=== PATIENT | female | born 1950 | race Caucasian/White ===

== ENCOUNTER 2021-08-06 07:37 | Day surgery (SDC) | payer MEDICARE ==
[2021-08-05 09:52] VITALS: BMI 29.7
[~2021-08-06 07:37] MED LIST: LACTATED RINGERS 1,000 ML IV SCH; LIDOCAINE 1% (10MG/ML) FOR IV START INTRADERMA PRN
[2021-08-06 08:07] VITALS: TEMP 97
[2021-08-06 08:09] LABS: Glucose,Whole Blood 149 mg/dL (75-99)
[2021-08-06] MEDS ORDERED: PROPOFOL 10 MG/ML 20 ML VIAL IV ONE (09:27)
--- NOTE | 2021-08-06 09:38 | P.GSHP ---
History of Present Illness H&P Date: 08/06/21 Chief Complaint: Anemia Is a 70-year-old female undergoing workup for anemia. Patient presents today for EGD and colonoscopy. She is unsure of her last colonoscopy.. 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 Past Anesthesia/Blood Transfusion Reactions: Previous Problems w/ Anesthesia Additional Past Anesthesia/Blood Transfusion Reaction / Comment(s): "has trouble waking up with anesthesia" Smoking Status: Never smoker - Past Family History Mother Family Medical History: Cancer Brother(s) Family Medical History: Cancer Sister(s) Family Medical History: Cancer Medications and Allergies Home Medications Medication Instructions Recorded Confirmed Type Atorvastatin [Lipitor] 40 mg PO DAILY 08/05/21 08/05/21 History Ergocalciferol [Vitamin D2 (1250 1,250 mcg PO WEEKLY 08/05/21 08/05/21 History Mcg = 91303 Iu)] Fluticasone Nasal [place] [Flonase 2 spray EA NOSTRIL DAILY PRN 08/05/21 08/05/21 History Nasal [place]] Furosemide [Lasix] 20 mg PO DAILY 08/05/21 08/05/21 History Insulin Degludec [Tresiba 10 units SQ HS 08/05/21 08/05/21 History Flextouch U-100 Pen] Loratadine [Claritin] 10 mg PO DAILY 08/05/21 08/05/21 History Montelukast Sodium [Singulair] 10 mg PO HS 08/05/21 08/05/21 History Pregabalin [Lyrica] 75 mg PO HS 08/05/21 08/05/21 History Pyridoxine HCl (Vitamin B6) 100 mg PO DAILY 08/05/21 08/05/21 History [Vitamin B-6] Ramipril [Altace] 5 mg PO QAM 08/05/21 08/05/21 History glipiZIDE XL [Glucotrol Xl] 10 mg PO BID 08/05/21 08/05/21 History metFORMIN HCL [Glucophage] 1,000 mg PO BID 08/05/21 08/05/21 History Allergies Allergy/AdvReac Type Severity Reaction Status Date / Time Sulfa (Sulfonamide Allergy Rash/Hives Verified 08/06/21 08:09 Antibiotics) Surgical - Exam Vital Signs Temp Pulse Resp BP Pulse Ox 97.0 F L 82 18 165/77 96 08/06/21 08:06 08/06/21 08:06 08/06/21 08:06 08/06/21 08:06 08/06/21 08:06 - General well developed, well nourished, no distress - Eyes PERRL - ENT normal pinna - Neck no masses - Respiratory normal expansion - Cardiovascular Rhythm: regular - Abdomen Abdomen: soft, non tender Results - Labs Abnormal Lab Results - Last 24 Hours (Table) 08/06/21 Range/Units 08:07 POC Glucose (mg/dL) 149 H (75-99) mg/dL Assessment and Plan Assessment: Anemia. We'll perform EGD colonoscopy
--- NOTE | 2021-08-06 10:05 | P.OP ---
Date of Procedure: 08/06/21 Preoperative Diagnosis: Anemia GI bleed. Postoperative Diagnosis: Mild antral gastritis Mild diverticulosis Procedure(s) Performed: EGD Colonoscopy Anesthesia: MAC Surgeon: Nathan Jeter Pathology: other (Antrum) Condition: stable Disposition: PACU Description of Procedure: The patient's placed on the endoscopy table in the lateral position. She received IV sedation. The gastroscope was oropharynx passed in the esophagus and into the stomach. The scope was then placed through the pylorus. The first and second portion of the duodenum appeared normal. The scope was then brought back the antrum this is mildly inflamed. A biopsies performed. The scope was then retroflexed in the remainder of the stomach appeared normal. The GE junction was at 40 cm. The distal esophagus. Normal. The proximal esophagus appeared normal. The scope was withdrawn for patient. There was no evidence of any upper GI bleed. The flexible colonoscope was then placed patient anus and passed throughout the entire colon. The ileocecal valve was visualized. Cecum, ascending and transverse colon appeared normal. The descending and sigmoid colon had a few scattered diverticuli. The scope was then brought back the rectum and this appeared normal. Scope withdrawn for patient. There was no evidence of any lower GI bleed.
[2021-08-06 10:25] VITALS: BP 158/86; PULSE 73; RESP 18
== END 2021-08-06 10:56 | disposition home or self-care (01) ==
LOC: ORWHC2ENDO 07:37
PROVIDERS: ATTEND Surgery
DX: K57.90 Diverticulosis of intestine, part unspecified, without perforation or abscess without bleeding (principal); K29.70 Gastritis, unspecified, without bleeding; D64.9 Anemia, unspecified; E11.9 Type 2 diabetes mellitus without complications; E78.5 Hyperlipidemia, unspecified; I10 Essential (primary) hypertension; Z79.4 Long term (current) use of insulin; Z86.73 Personal history of transient ischemic attack (TIA), and cerebral infarction without residual deficits; Z88.2 Allergy status to sulfonamides
CPT/HCPCS: 45378; 43239; 88305; J2704

== ENCOUNTER → 2022-01-04 | Outpatient (CLI) | payer MEDICARE ==
--- NOTE | 2022-01-04 10:47 | CT ---
EXAMINATION TYPE: CT iac wo con DATE OF EXAM: 01/04/2022 COMPARISON: Unavailable HISTORY: HEARING LOSS CT DLP: 195mGycm Automated exposure control for dose reduction was used. TECHNIQUE: Axial and coronal CT scan of the temporal bones without IV contrast administration. FINDINGS: Opacified mastoid air cells more on the left side with sclerotic changes on the right side suggestive of mastoiditis. Symmetrical unremarkable middle ear structures. Clear aditus ad antrum bilaterally. Symmetrical unremarkable inner ear structures and internal auditory canals. Unremarkable external auditory canals. Intact scutum bilaterally with preserved Prussak spaces. Intac t tegmen tympani bilaterally. Mild mucosal thickening of the right maxillary sinus, sphenoid sinus an d the ethmoid air cells. Scattered arterial atherosclerotic calcifications. IMPRESSION: Findings are suggestive of bilateral mastoiditis as described above, please correlate clinically. Oth erwise unremarkable temporal bones.
== END | disposition home or self-care (01) ==
LOC: RADCTMAIN 10:04
PROVIDERS: ATTEND Otolaryngology
DX: H91.90 Unspecified hearing loss, unspecified ear (principal); H71.90 Unspecified cholesteatoma, unspecified ear; H73.892 Other specified disorders of tympanic membrane, left ear
CPT/HCPCS: 70480

== ENCOUNTER 2022-03-04 07:27 | Day surgery (SDC) | payer MEDICARE ==
[~2022-03-04 07:27] MED LIST changes: +FAMOTIDINE 20 MG/2 ML VIAL IV PRN; -LACTATED RINGERS 1,000 ML IV SCH; -LIDOCAINE 1% (10MG/ML) FOR IV START INTRADERMA PRN; +Pre Op ABX Message 1 EACH MISC MISCELLANE ONE
[2022-03-04] MEDS: LACTATED RINGERS 1,000 ML IV SCH (08:00)
[2022-03-04] MEDS: OXYMETAZOLINE 0.05% NASL SPRAY 1 SPRAY BOTTLE EA NOSTRIL PRN ×5 (08:13→08:33)
[2022-03-04] MEDS ORDERED: LIDOCAINE 1% (10MG/ML) FOR IV START INTRADERMA ONE (08:18)
[2022-03-04 08:21] LABS: Glucose,Whole Blood 181 mg/dL (70-110)
[2022-03-04] MEDS ORDERED: DEXAMETHASONE SOD PHOSPHATE 4 MG/ML 1 ML VIAL IVP ONE (08:28)
[2022-03-04] MEDS ORDERED: ONDANSETRON 4 MG/2 ML VIAL IVP ONE (08:28)
[2022-03-04] MEDS ORDERED: LIDOCAINE 2% INJ 20 MG/ML (2 ML VIAL) ONE (09:41)
[2022-03-04] MEDS ORDERED: PROPOFOL 10 MG/ML 20 ML VIAL IV ONE (09:41)
[2022-03-04] MEDS ORDERED: MIDAZOLAM 2 MG/2 ML VIAL ONE (09:41)
[2022-03-04] MEDS ORDERED: fentaNYL (PF) 50 MCG/ML 2 ML AMP ONE (09:41)
[2022-03-04] MEDS ORDERED: CIPROFLOX/FLUOCIN OTIC 0.25ML DROPERETTE OTIC ONE (10:03)
--- NOTE | 2022-03-04 10:31 | P.OP ---
Date of Procedure: 03/04/22 Preoperative Diagnosis: Chronic serous otitis media with effusion bilateral Bilateral my [place] incudostapedial pexy Chronic mastoiditis Eustachian tube obstruction, bilateral, cartilaginous Hearing loss Postoperative Diagnosis: Same Procedure(s) Performed: Bilateral direct microscopic tympanostomy and tube placement with lavage Bilateral endoscopic balloon eustachian tuboplasty Anesthesia: MAURICIO Surgeon: Mukul Faustin Estimated Blood Loss (ml): 0 Pathology: none sent Condition: stable Disposition: PACU Indications for Procedure: This patient has failed medical therapy and continues to have persistent eustachian tube dysfunction. She was found have severe retraction pockets on the left side which is much worse she has bilateral [place] incostapedialpexy medical therapy has been prescribed but has failed. Tympanostomy and tube placement with the middle-ear lavage along with a balloon the station tuboplasty was recommended. All risks, benefits and alternative therapies were discussed. Consent was obtained and all questions were answered. Operative Findings: Patient had bilateral retraction pockets with Myringoincudostapedial pexy. Middle ear effusion was noted. Eustachian tube orifice was swollen bilaterally Description of Procedure: Patient was taken to the operative room and placed in the supine position. A general inhalation anesthetic was administered to the patient by mask and subsequently intubated with a cuffed endotracheal tube by the department of anesthesia with a functioning IV line in place. The patient was monitored throughout the entire case by the department of anesthesia. Both ears were visualized with a 250 mm Leica microscope and cerumen and epithelial debris was removed from the external auditory canals. Both tympanic membranes were retracted with adhesions from the eardrum to the stapes and incus. Tympanostomy incisions were made. Fluid was suctioned. Middle ear was lavaged with saline. Bilateral Tympanostomy tubes were placed utilizing ultraseal tubes. Ofloxacin drops were placed. With use of an acclarent eustachian tube balloon system the nose was entered with a 0 scope. Both eustachian tubes were identified and found to be swollen and balloon insufflated in the standard fashion. Bilateral eustachian tubes were insufflated and all instruments were removed after the balloon was performed bilaterally. The patient tolerated this well and follow-up will be in the office in 1 week.
[2022-03-04 10:47] LABS: Glucose,Whole Blood 234 mg/dL (70-110)
[2022-03-04] MEDS ORDERED: ALBUTEROL NEBULIZED 2.5 MG/3 ML INHALATION ONE ×2 (11:19→12:03)
[2022-03-04] MEDS ORDERED: INSULIN ASPART (NovoLOG) 100 UNIT/ML VIAL SQ ONE ×2 (11:19→23:12)
[2022-03-04 13:47] LABS: Glucose,Whole Blood 210 mg/dL (70-110)
[2022-03-04] MEDS ORDERED: FLUTICASONE 50MCG/SPRAY NASAL 16GM EA NOSTRIL PRN (14:07)
[2022-03-04] MEDS ORDERED: ACETAMINOPHEN TAB 325 MG TAB PO PRN (14:08)
[2022-03-04] MEDS ORDERED: NALOXONE 0.4 MG/ML 1 ML VIAL IV PRN (14:08)
[2022-03-04] MEDS ORDERED: MELATONIN 3 MG TABLET PO PRN (14:08)
[2022-03-04] MEDS ORDERED: ONDANSETRON 4 MG/2 ML VIAL IVP PRN (14:15)
--- NOTE | 2022-03-04 15:11 | XR ---
EXAMINATION TYPE: XR chest 2V DATE OF EXAM: 03/04/2022 COMPARISON: None HISTORY: 71-year-old female postoperative hypoxia with aspiration TECHNIQUE: Frontal and lateral views FINDINGS: Heart normal size. Mild hyperinflation. Interstitial infiltrate throughout the right lung in mild inc reased interstitial change periphery of the left lung. LAP-BAND device noted. IMPRESSION: Mild to moderate interstitial infiltrate throughout the right lung and mild in the left lung. Early d eveloping aspiration pneumonitis not excluded.
[2022-03-04 15:33] LABS: Basophils % (A) 0 %; Eosinophils % (A) 0 %; HCT 35.6 % (34.0-46.0); HGB 11.5 gm/dL (11.4-16.0); Lymphocytes # (A) 0.5 k/uL (1.0-4.8); Lymphocytes % (A) 5 %; MCH 29.7 pg (25.0-35.0); MCHC 32.4 g/dL (31.0-37.0); MCV 91.6 fL (80.0-100.0); Mean Platelet Volume 8.7; Monocytes # (A) 0.2 k/uL (0-1.0); Monocytes % (A) 2 %; Neutrophils # (A) 10.2 k/uL (1.3-7.7); Neutrophils % (A) 93 %; Platelet Count 270 k/uL (150-450); RBC 3.89 m/uL (3.80-5.40)
[2022-03-04 15:36] LABS: ALT 20 U/L (4-34); AST 25 U/L (14-36); African American GFR (CKD) 41 (>60 ml/min/1.73 sqM); Albumin 4.2 g/dL (3.5-5.0); Alkaline Phosphatase 62 U/L (38-126); Anion Gap 7 mmol/L; Blood Urea Nitrogen 32 mg/dL (7-17); Calcium 9.2 mg/dL (8.4-10.2); Carbon Dioxide 26 mmol/L (22-30); Chloride 105 mmol/L (98-107); Glucose 204 mg/dL (74-99); Non-African American GFR(CKD) 35 (>60 ml/min/1.73 sqM); Potassium 4.6 mmol/L (3.5-5.1); Sodium 138 mmol/L (137-145); Total Bilirubin 0.5 mg/dL (0.2-1.3); Total Protein 7.2 g/dL (6.3-8.2)
[2022-03-04 15:47] LABS: C Reactive Protein <0.5 mg/dL (<1.0)
[2022-03-04] MEDS: IPRATROPIUM-ALBUTEROL 3 ML NEB INHALATION SCH ×2 (16:00→20:02)
--- NOTE | 2022-03-04 16:09 | P.CNPUL ---
History of Present Illness Consult date: 03/04/22 Requesting physician: Mukul Faustin Reason for consult: pneumonia Chief complaint: Intraoperative vomiting, aspiration pneumonia History of present illness: This is a 71-year-old female with history of persistent eustachian tube dysfunction. Patient had chronic serous otitis media with effusion bilaterally. Chronic mastoiditis, eustachian tube obstruction and hearing loss. Patient u nderwent bilateral direct microscopic tympanostomy and tube placement with lavage. Bilateral endoscopic balloon eustachian tuboplasty today. Apparently the patient had her surgery done under general anesthesia, and during the surgery the patient vomited, and there was clearly evidence of aspiration. Postoperatively, the patient had low oxygen saturation, abnormal chest x-ray consistent with right upper lobe and right lower lobe infiltrate, patient was admitted instead of being discharged home, and I was asked to see her on consultation. Patient is now on 2 L nasal cannula, O2 saturations 93%. Chest x-ray is consistent with aspiration pneumonia. Symptoms bello the patient has intermittent cough, no fever, no chills, no hemoptysis. Review of Systems Constitutional: Negative HEENT: As noted in HPI Pulmonary: As noted in HPI GI: Negative Genitourinary: Negative Muscular skeletal: Negative Psychiatric: Negative Hematologic: Negative Endocrine: Negative Neurologic: Negative Skin: Negative Past Medical History Past Medical History: Asthma, CVA/TIA, Diabetes Mellitus, Hyperlipidemia, Hypertension, Osteoarthritis (OA) Additional Past Medical History / Comment(s): "I had a couple false mini strokes a few years ago" LOW VITAMIN B6 - LOW -PAST HISTORY . 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 Past Anesthesia/Blood Transfusion Reactions: Previous Problems w/ Anesthesia, Motion Sickness Additional Past Anesthesia/Blood Transfusion Reaction / Comment(s): "has trouble waking up with anesthesia" TAKES LONGER TO WAKE UP Smoking Status: Former smoker - Past Family History Mother Family Medical History: Cancer Brother(s) Family Medical History: Cancer Sister(s) Family Medical History: Cancer Son(s) Family Medical History: Cancer Additional Family Medical History / Comment(s): PANCREATIC CANCER Medications and Allergies Home Medications Medication Instructions Recorded Confirmed Type Atorvastatin [Lipitor] 40 mg PO DAILY 08/05/21 03/04/22 History Ergocalciferol [Vitamin D2 (1250 1,250 mcg PO WE 08/05/21 03/04/22 History Mcg = 86156 Iu)] Fluticasone Nasal [place] [Flonase 2 spray EA NOSTRIL DAILY PRN 08/05/21 03/04/22 History Nasal [place]] Furosemide [Lasix] 20 mg PO DAILY 08/05/21 03/04/22 History Insulin Degludec [Tresiba 10 units SQ HS 08/05/21 03/04/22 History Flextouch U-100 Pen] Loratadine [Claritin] 10 mg PO DAILY 08/05/21 03/04/22 History Montelukast Sodium [Singulair] 10 mg PO HS 08/05/21 03/04/22 History Pregabalin [Lyrica] 75 mg PO HS 08/05/21 03/04/22 History Pyridoxine HCl (Vitamin B6) 100 mg PO DAILY 08/05/21 03/04/22 History [Vitamin B-6] glipiZIDE XL [Glucotrol Xl] 10 mg PO BID 08/05/21 03/04/22 History metFORMIN HCL [Glucophage] 1,000 mg PO BID 08/05/21 03/04/22 History ramipriL [Altace] 5 mg PO QAM 08/05/21 03/04/22 History Magnesium Oxide [Mag-Ox] 400 mg PO DAILY 03/02/22 03/04/22 History Allergies Allergy/AdvReac Type Severity Reaction Status Date / Time Sulfa (Sulfonamide Allergy Rash/Hives Verified 03/04/22 08:00 Antibiotics) Physical Exam Vitals: Vital Signs Temp Pulse Resp BP Pulse Ox 03/04/22 15:04 89 16 110/77 93 L 03/04/22 14:57 96 16 160/72 89 L 03/04/22 13:41 76 16 127/75 95 03/04/22 13:40 97.5 F L 03/04/22 13:35 82 16 93 L 03/04/22 13:02 16 113/70 93 L 03/04/22 12:44 78 16 138/60 90 L 03/04/22 12:34 84 16 129/71 90 L 03/04/22 12:15 77 16 129/71 94 L 03/04/22 12:13 70 16 121/62 95 03/04/22 12:05 71 16 122/62 97 03/04/22 11:50 97.1 F L 75 16 134/64 95 03/04/22 11:35 68 16 133/62 94 L 03/04/22 11:20 68 16 131/68 94 L 03/04/22 11:05 97.0 F L 67 16 129/70 94 L 03/04/22 10:50 96.7 F L 69 15 138/86 94 L 03/04/22 10:35 95.9 F L 72 14 144/96 94 L 03/04/22 08:04 97.6 F 72 18 127/69 97 Intake and Output 03/04/22 03/04/22 03/04/22 06:59 14:59 22:59 Intake Total 600 Output Total 5 Balance 595 Intake: IV 600 Output: Estimated Blood Loss 5 Other: Weight 83.5 kg Physical Exam: Revealed 71-year-old female in no distress on 2 L nasal cannula Head: Atraumatic, normocephalic. HEENT:[Neck is supple.] [No neck masses.] [No thyromegaly.] [No JVD.] Chest: Symmetrical chest expansion, crackles at the bases bilaterally. Minimal rhonchi on forced expiratory maneuver. Cardiac Exam: [Normal S1 and S2, no S3 gallop, no murmur.] Abdomen: [Soft, nontender, no megaly, no rebound, no guarding, normal bowel sounds.] Extremities: [No clubbing, no edema, no cyanosis.] Neurological Exam: [No focal neurologic deficit.] Alert and oriented 3 Psychiatric: Normal mood, affect and normal mental status examination. Skin: No rashes Results - Laboratory Findings CBC and BMP: 03/04/22 15:09 03/04/22 15:09 Abnormal lab findings: Abnormal Labs 03/04/22 03/04/22 03/04/22 08:18 10:45 13:46 WBC Neutrophils # Lymphocytes # BUN Creatinine Glucose POC Glucose (mg/dL) 181 H 234 H 210 H 03/04/22 03/04/22 15:09 15:09 WBC 11.0 H Neutrophils # 10.2 H Lymphocytes # 0.5 L BUN 32 H Creatinine 1.49 H Glucose 204 H POC Glucose (mg/dL) - Diagnostic Findings Chest x-ray: image reviewed (Suspect infiltrate in the right upper lobe and right middle lobe and to some extent in the left lung) Assessment and Plan Assessment: Impression: Acute hypoxic respiratory failure secondary to aspiration pneumonia Acute aspiration pneumonia Status post Bilateral direct microscopic tympanostomy and tube placement with lavage Status post Bilateral endoscopic balloon eustachian tuboplasty Type 2 diabetes. Benign essential hypertension. Dyslipidemia. History of mild intermittent asthma. Remote 2-pack-year smoking history. Recommendation: Start patient empirically on antibiotics in the form of Zosyn Start patient empirically on steroids Resume home meds Consider repeat chest x-ray in the next 24 hours and possibly discharge home in 24 hours on steroids and oral antibiotics/Augmentin. We'll continue to follow [employer] in the form of DuoNeb 4 times a day and when necessary Time with Patient: Greater than 30
--- NOTE | 2022-03-04 16:21 | P.HPIM ---
History of Present Illness H&P Date: 03/04/22 Chief Complaint: Postoperative respiratory failure History of present illness: This is a 71-year-old female with history of persistent eustachian tube dysfunction. Patient had chronic serous otitis media with effusion bilaterally. Chronic mastoiditis, eustachian tube obstruction and hearing loss. Patient underwent bilateral direct microscopic tympanostomy and tube placement with lavage. Bilateral endoscopic balloon eustachian tuboplasty today. Apparently the patient had her surgery done under general anesthesia, and during the surgery the patient vomited, and there was clearly evidence of aspiration. Postoperatively, the patient had low oxygen saturation, abnormal chest x-ray consistent with right upper lobe and right lower lobe infiltrate, patient was admitted instead of being discharged home, and I was asked to see her on consultation. Patient is now on 2 L nasal cannula, O2 saturations 93%. Chest x-ray is consistent with aspiration pneumonia. Symptoms bello the patient has intermittent cough, no fever, no chills, no hemoptysis. Patient denies any chest pain. She is currently on 2 L nasal cannula. Review of systems:All 14 review of systems evaluated and all negative except for above. Physical examination: General: non toxic, no distress, appears at stated age Derm: warm, dry Head: atraumatic, normocephalic, symmetric Eyes: EOMI, no lid lag, anicteric sclera Mouth: no lip lesion, mucus membranes moist Cardiovascular: S1S2 reg, no murmur, positive posterior tibial pulse bilateral, Lungs: Bilateral crackles. Abdominal: soft, nontender to palpation, no guarding, no appreciable organomegaly Ext: no gross muscle atrophy, no edema, no contractures Neuro: CN II-XI grossly intact, no focal neuro deficits Psych: Alert, oriented, appropriate affect Assessment and plan: #Postoperative acute respiratory failure secondary to aspiration pneumonia -Patient started on Zosyn -Breathing treatments -Incentive spirometer -Oral steroids per pulmonary -Repeat chest x-ray in the morning #History of mild intermittent asthma -Bronchodilator treatments -Resume Singulair #Type 2 diabetes mellitus -Diabetic diet -A1c -Sliding scale insulin #Past medical history of TIAs -Patient will not and aspirin at home -Start baby aspirin resume statins and check lipid panel #Hypertension -Resume lisinopril #Status post Bilateral direct microscopic tympanostomy and tube placement with lavage Status post Bilateral endoscopic balloon eustachian tuboplasty -Resume eardrops per ENT -She is on IV antibiotics -By mouth antibiotic on discharge #DVT prophylaxis with Lovenox Past Medical History Past Medical History: Asthma, CVA/TIA, Diabetes Mellitus, Hyperlipidemia, Hypertension, Osteoarthritis (OA) Additional Past Medical History / Comment(s): "I had a couple false mini strokes a few years ago" LOW VITAMIN B6 - LOW -PAST HISTORY . 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 Past Anesthesia/Blood Transfusion Reactions: Previous Problems w/ Anesthesia, Motion Sickness Additional Past Anesthesia/Blood Transfusion Reaction / Comment(s): "has trouble waking up with anesthesia" TAKES LONGER TO WAKE UP Smoking Status: Former smoker - Past Family History Mother Family Medical History: Cancer Brother(s) Family Medical History: Cancer Sister(s) Family Medical History: Cancer Son(s) Family Medical History: Cancer Additional Family Medical History / Comment(s): PANCREATIC CANCER Medications and Allergies Home Medications Medication Instructions Recorded Confirmed Type Atorvastatin [Lipitor] 40 mg PO DAILY 08/05/21 03/04/22 History Ergocalciferol [Vitamin D2 (1250 1,250 mcg PO WE 08/05/21 03/04/22 History Mcg = 32340 Iu)] Fluticasone Nasal [place] [Flonase 2 spray EA NOSTRIL DAILY PRN 08/05/21 03/04/22 History Nasal [place]] Furosemide [Lasix] 20 mg PO DAILY 08/05/21 03/04/22 History Insulin Degludec [Tresiba 10 units SQ HS 08/05/21 03/04/22 History Flextouch U-100 Pen] Loratadine [Claritin] 10 mg PO DAILY 08/05/21 03/04/22 History Montelukast Sodium [Singulair] 10 mg PO HS 08/05/21 03/04/22 History Pregabalin [Lyrica] 75 mg PO HS 08/05/21 03/04/22 History Pyridoxine HCl (Vitamin B6) 100 mg PO DAILY 08/05/21 03/04/22 History [Vitamin B-6] glipiZIDE XL [Glucotrol Xl] 10 mg PO BID 08/05/21 03/04/22 History metFORMIN HCL [Glucophage] 1,000 mg PO BID 08/05/21 03/04/22 History ramipriL [Altace] 5 mg PO QAM 08/05/21 03/04/22 History Magnesium Oxide [Mag-Ox] 400 mg PO DAILY 03/02/22 03/04/22 History Allergies Allergy/AdvReac Type Severity Reaction Status Date / Time Sulfa (Sulfonamide Allergy Rash/Hives Verified 03/04/22 08:00 Antibiotics) Physical Exam Vitals: Vital Signs Temp Pulse Pulse Resp BP Pulse Ox 03/04/22 16:14 84 03/04/22 16:00 84 03/04/22 15:58 98.9 F 88 16 152/79 93 L 03/04/22 15:04 89 16 110/77 93 L 03/04/22 14:57 96 16 160/72 89 L 03/04/22 13:41 76 16 127/75 95 03/04/22 13:40 97.5 F L 03/04/22 13:35 82 16 93 L 03/04/22 13:02 16 113/70 93 L 03/04/22 12:44 78 16 138/60 90 L 03/04/22 12:34 84 16 129/71 90 L 03/04/22 12:15 77 16 129/71 94 L 03/04/22 12:13 70 16 121/62 95 03/04/22 12:05 71 16 122/62 97 03/04/22 11:50 97.1 F L 75 16 134/64 95 03/04/22 11:35 68 16 133/62 94 L 03/04/22 11:20 68 16 131/68 94 L 03/04/22 11:05 97.0 F L 67 16 129/70 94 L 03/04/22 10:50 96.7 F L 69 15 138/86 94 L 03/04/22 10:35 95.9 F L 72 14 144/96 94 L 03/04/22 08:04 97.6 F 72 18 127/69 97 Intake and Output 03/04/22 03/04/22 03/04/22 06:59 14:59 22:59 Intake Total 600 Output Total 5 Balance 595 Intake: IV 600 Output: Estimated Blood Loss 5 Other: Weight 83.5 kg Results CBC & Chem 7: 03/04/22 15:09 03/04/22 15:09 Labs: Abnormal Lab Results - Last 24 Hours (Table) 03/04/22 03/04/22 03/04/22 Range/Units 08:18 10:45 13:46 WBC (3.8-10.6) k/uL Neutrophils # (1.3-7.7) k/uL Lymphocytes # (1.0-4.8) k/uL BUN (7-17) mg/dL Creatinine (0.52-1.04) mg/dL Glucose (74-99) mg/dL POC Glucose (mg/dL) 181 H 234 H 210 H (70-110) mg/dL 03/04/22 03/04/22 Range/Units 15:09 15:09 WBC 11.0 H (3.8-10.6) k/uL Neutrophils # 10.2 H (1.3-7.7) k/uL Lymphocytes # 0.5 L (1.0-4.8) k/uL BUN 32 H (7-17) mg/dL Creatinine 1.49 H (0.52-1.04) mg/dL Glucose 204 H (74-99) mg/dL POC Glucose (mg/dL) (70-110) mg/dL Thrombosis Risk Factor Assmnt - Choose All That Apply Each Factor Represents 1 point: Minor surgery planned, Obesity (BMI >25) Each Risk Factor Represents 2 Points: Age 61-74 years Thrombosis Risk Factor Assessment Total Risk Factor Score: 4 Thrombosis Risk Factor Assessment Level: Moderate Risk
[2022-03-04] MEDS: PIPERACILLIN-TAZOBACTAM 3.375 GM in SODIUM CHLORIDE 0.9% 100 ML IVPB SCH ×2 (16:30→23:20)
[2022-03-04] MEDS: methylPREDNISolone 4 MG TAB TAPER PO SCH (16:33)
[2022-03-04 17:24] LABS: Glucose,Whole Blood 333 mg/dL (70-110)
[2022-03-04] MEDS: INSULIN ASPART (NovoLOG) 100 UNIT/ML VIAL SQ SCH ×2 (18:06→21:55)
[2022-03-04] MEDS: PREGABALIN 75 MG CAP PO SCH (20:17)
[2022-03-04] MEDS: MONTELUKAST 10 MG TAB PO SCH (20:17)
[2022-03-04 20:22] LABS: Glucose,Whole Blood 436 mg/dL (70-110)
[2022-03-04] MEDS: OFLOXACIN 0.3% OPHTH DROPS 5 ML BOTTLE BOTH EARS SCH (20:43)
[2022-03-04] MEDS ORDERED: INSULIN DETEMIR (LEVEMIR) 100 UNIT/ML SYR SQ SCH (21:00)
[2022-03-04 21:12] LABS: Glucose,Whole Blood 418 mg/dL (70-110)
[2022-03-04 22:29] LABS: Chol/HDL Ratio 2.66 Ratio; LDL Cholesterol,Calculated 88.5 mg/dL (0.0-131.0); VLDL Calculation 13.88 mg/dL (5.00-40.00)
[2022-03-04 23:16] LABS: Glucose,Whole Blood 402 mg/dL (70-110)
[2022-03-05 07:13] LABS: Glucose,Whole Blood 278 mg/dL (70-110)
--- NOTE | 2022-03-05 07:19 | XR ---
EXAMINATION TYPE: XR chest 1V portable DATE OF EXAM: 03/05/2022 HISTORY: Shortness of breath. COMPARISON: 03/04/2022 TECHNIQUE: Single view of the chest is submitted. FINDINGS: Demonstrated are scattered senescent parenchymal change. Right perihilar and right basilar infiltrate persists. The heart is stable. Hilar and mediastinal structures are within normal limits. Degenerative changes are seen of the dorsal spine. IMPRESSION: 1. Right perihilar and right basilar infiltrate persists.
[2022-03-05] MEDS: IPRATROPIUM-ALBUTEROL 3 ML NEB INHALATION SCH ×4 (07:48→20:18)
[2022-03-05] MEDS: MAGNESIUM OXIDE 400 MG TAB PO SCH (08:45)
[2022-03-05] MEDS: LORATADINE 10 MG TAB PO SCH (08:46)
[2022-03-05] MEDS: INSULIN ASPART (NovoLOG) 100 UNIT/ML VIAL SQ SCH ×5 (08:46→22:06)
[2022-03-05] MEDS: ASPIRIN 81 MG PO SCH (08:46)
[2022-03-05] MEDS: PIPERACILLIN-TAZOBACTAM 3.375 GM in SODIUM CHLORIDE 0.9% 100 ML IVPB SCH (08:46)
[2022-03-05] MEDS: ATORVASTATIN 40 MG TAB PO SCH (08:46)
[2022-03-05] MEDS: PYRIDOXINE 50 MG TAB PO SCH (08:47)
[2022-03-05] MEDS: methylPREDNISolone 4 MG TAB TAPER PO SCH (08:47)
[2022-03-05] MEDS: OFLOXACIN 0.3% OPHTH DROPS 5 ML BOTTLE BOTH EARS SCH ×2 (08:48→21:32)
[2022-03-05] MEDS ORDERED: ENOXAPARIN 40 MG/0.4 ML SYRINGE SQ SCH (09:00)
[2022-03-05] MEDS ORDERED: lisinopriL 20 MG TAB PO SCH (09:00)
[2022-03-05 09:05] LABS: HCT 29.8 % (37.2-46.3); HGB 9.5 g/dL (12.0-15.0); MCH 28.8 pg (27.0-32.0); MCHC 31.9 g/dL (32.0-37.0); MCV 90.3 fL (80.0-97.0); NRBC Per 100 WBC 0 /100 WBCS (0.0-0.0); Platelet Count 235 X 10*3/uL (140-440); RDW 13.1 % (11.5-14.5); WBC 18.41 X 10*3/uL (4.50-10.00)
[2022-03-05 09:15] LABS: African American GFR (CKD) 32.3 (60.0-200.0); Albumin 3.8 g/dL (3.8-4.9); Albumin/Globulin Ratio 1.58 (1.60-3.17); Anion Gap 13.2 mmol/L (10.00-18.00); BUN/Creat Ratio 20.22 Ratio (12.00-20.00); Blood Urea Nitrogen 36.4 mg/dL (9.0-27.0); Calcium 9.1 mg/dL (8.7-10.3); Carbon Dioxide 21.8 mmol/L (20.0-27.5); Globulin 2.4 g/dL (1.6-3.3); Magnesium 2.2 mg/dL (1.5-2.4); Non-African American GFR(CKD) 27.8 (60.0-200.0); Potassium 4.7 mmol/L (3.5-5.5); Total Bilirubin 0.7 mg/dL (0.30-1.20); Total Protein 6.2 g/dL (6.2-8.2)
[2022-03-05 12:14] LABS: Glucose,Whole Blood 347 mg/dL (70-110)
[2022-03-05 12:18] LABS: Basophils # (A) 0.04 X 10*3/uL (0.00-0.10); Basophils % (A) 0.2 %; Eosinophils # (A) 0 X 10*3/uL (0.04-0.35); Eosinophils % (A) 0 %; Immature Grans, Automated 0.4 %; Lymphocytes # (A) 1.32 X 10*3/uL (0.90-5.00); Lymphocytes % (A) 7.2 %; Monocytes # (A) 0.58 X 10*3/uL (0.20-1.00); Monocytes % (A) 3.2 %
[2022-03-05 12:19] LABS: RBC Morphology NORMAL
[2022-03-05 12:24] VITALS: BMI 29.7
[2022-03-05] MEDS: LACTATED RINGERS 1,000 ML IV SCH (12:41)
--- NOTE | 2022-03-05 13:30 | P.PN ---
Subjective Progress Note Date: 03/05/22 Principal diagnosis: Aspiration This is a 71-year-old female with history of persistent eustachian tube dysfunction. Patient had chronic serous otitis media with effusion bilaterally. Chronic mastoiditis, eustachian tube obstruction and hearing loss. Patient underwent bilateral direct microscopic tympanostomy and tube placement with lavage. Bilateral endoscopic balloon eustachian tuboplasty today. Apparently the patient had her surgery done under general anesthesia, and during the surgery the patient vomited, and there was clearly evidence of aspiration. Postoperatively, the patient had low oxygen saturation, abnormal chest x-ray consistent with right upper lobe and right lower lobe infiltrate, patient was admitted instead of being discharged home, and I was asked to see her on consultation. Patient is now on 2 L nasal cannula, O2 saturations 93%. Chest x-ray is consistent with aspiration pneumonia. Symptoms bello the patient has intermittent cough, no fever, no chills, no hemoptysis. The patient is seen today 03/05/2022 in follow-up on the regular medical floor. She is sitting up in bed. Awake and alert in no acute distress. Doing quite a bit better today compared to yesterday. He is maintaining O2 saturations in the mid 90s on 2 L/m per nasal cannula. She does have a productive cough of yellow brownish sputum. X-ray showing improved aeration in the right perihilar and right basilar infiltrates. White count 18.4. Hemoglobin 9.5. Platelets 235. Sodium 137. Potassium 4.7. BUN 36. Creatinine 1.8. Glucose 262. AST 16. ALT 17. She remains on Zosyn. Objective - Vital Signs Vital signs: Vital Signs Temp 98.8 F 03/05/22 12:57 Pulse 70 03/05/22 12:57 Resp 16 03/05/22 12:57 BP 131/69 03/05/22 12:57 Pulse Ox 96 03/05/22 12:57 FiO2 Intake & Output 03/04/22 03/05/22 03/05/22 18:59 06:59 18:59 Intake Total 1000 480 Output Total 5 Balance 995 480 Weight 83.5 kg 83.5 kg Intake: IV 600 Intake, IV Titration 400 Amount Lactated Ringers 1,000 ml 400 @ 20 mls/hr IV .Q24H [facility] Rx#:[id number] Oral 480 Output: Estimated Blood Loss 5 Other: Voiding Method Toilet Toilet # Voids 3 - Exam GENERAL EXAM: Alert, very pleasant 71-year-old female patient, on 2 L nasal cannula, comfortable in no apparent distress. HEAD: Normocephalic. EYES: Normal reaction of pupils, equal size. NOSE: Clear with pink turbinates. THROAT: No erythema or exudates. NECK: No masses, no JVD. CHEST: No chest wall deformity. LUNGS: Equal air entry with few scattered crackles in the right base. CVS: S1 and S2 normal with no audible murmur, regular rhythm. ABDOMEN: No hepatosplenomegaly, normal bowel sounds, no guarding or rigidity. SPINE: No scoliosis or deformity SKIN: No rashes CENTRAL NERVOUS SYSTEM: No focal deficits, tone is normal in all 4 extremities. EXTREMITIES: There is no peripheral edema. No clubbing, no cyanosis. Peripheral pulses are intact. - Labs CBC & Chem 7: 03/05/22 06:13 03/05/22 06:13 Labs: Abnormal Lab Results - Last 24 Hours (Table) 03/04/22 03/04/22 03/04/22 Range/Units 13:46 15:09 15:09 WBC 11.0 H (3.8-10.6) k/uL RBC (4.10-5.20) X 10*6/uL Hgb (12.0-15.0) g/dL Hct (37.2-46.3) % MCHC (32.0-37.0) g/dL Immature Gran # (0.00-0.04) X 10*3/uL Neutrophils # 10.2 H (1.3-7.7) k/uL Lymphocytes # 0.5 L (1.0-4.8) k/uL Eosinophils # (0.04-0.35) X 10*3/uL BUN 32 H (7-17) mg/dL Creatinine 1.49 H (0.52-1.04) mg/dL Est GFR (CKD-EPI)AfAm (60.0-200.0) Est GFR (CKD-EPI)NonAf (60.0-200.0) BUN/Creatinine Ratio (12.00-20.00) Ratio Glucose 204 H (74-99) mg/dL POC Glucose (mg/dL) 210 H (70-110) mg/dL Hemoglobin A1c (0.0-6.0) % Albumin/Globulin Ratio (1.60-3.17) g/dL HDL Cholesterol (40.00-60.00) mg/dL 03/04/22 03/04/22 03/04/22 Range/Units 15:16 15:16 17:17 WBC (3.8-10.6) k/uL RBC (4.10-5.20) X 10*6/uL Hgb (12.0-15.0) g/dL Hct (37.2-46.3) % MCHC (32.0-37.0) g/dL Immature Gran # (0.00-0.04) X 10*3/uL Neutrophils # (1.3-7.7) k/uL Lymphocytes # (1.0-4.8) k/uL Eosinophils # (0.04-0.35) X 10*3/uL BUN (7-17) mg/dL Creatinine (0.52-1.04) mg/dL Est GFR (CKD-EPI)AfAm (60.0-200.0) Est GFR (CKD-EPI)NonAf (60.0-200.0) BUN/Creatinine Ratio (12.00-20.00) Ratio Glucose (74-99) mg/dL POC Glucose (mg/dL) 333 H (70-110) mg/dL Hemoglobin A1c 9.0 H (0.0-6.0) % Albumin/Globulin Ratio (1.60-3.17) g/dL HDL Cholesterol 61.60 H (40.00-60.00) mg/dL 03/04/22 03/04/22 03/04/22 Range/Units 20:19 21:10 23:04 WBC (3.8-10.6) k/uL RBC (4.10-5.20) X 10*6/uL Hgb (12.0-15.0) g/dL Hct (37.2-46.3) % MCHC (32.0-37.0) g/dL Immature Gran # (0.00-0.04) X 10*3/uL Neutrophils # (1.3-7.7) k/uL Lymphocytes # (1.0-4.8) k/uL Eosinophils # (0.04-0.35) X 10*3/uL BUN (7-17) mg/dL Creatinine (0.52-1.04) mg/dL Est GFR (CKD-EPI)AfAm (60.0-200.0) Est GFR (CKD-EPI)NonAf (60.0-200.0) BUN/Creatinine Ratio (12.00-20.00) Ratio Glucose (74-99) mg/dL POC Glucose (mg/dL) 436 H 418 H 402 H (70-110) mg/dL Hemoglobin A1c (0.0-6.0) % Albumin/Globulin Ratio (1.60-3.17) g/dL HDL Cholesterol (40.00-60.00) mg/dL 03/05/22 03/05/22 03/05/22 Range/Units 06:13 06:13 07:11 WBC 18.41 H (3.8-10.6) k/uL RBC 3.30 L (4.10-5.20) X 10*6/uL Hgb 9.5 L (12.0-15.0) g/dL Hct 29.8 L (37.2-46.3) % MCHC 31.9 L (32.0-37.0) g/dL Immature Gran # 0.07 H (0.00-0.04) X 10*3/uL Neutrophils # 16.40 H (1.3-7.7) k/uL Lymphocytes # (1.0-4.8) k/uL Eosinophils # 0 L (0.04-0.35) X 10*3/uL BUN 36.4 H (7-17) mg/dL Creatinine 1.8 H (0.52-1.04) mg/dL Est GFR (CKD-EPI)AfAm 32.3 L (60.0-200.0) Est GFR (CKD-EPI)NonAf 27.8 L (60.0-200.0) BUN/Creatinine Ratio 20.22 H (12.00-20.00) Ratio Glucose 262 H (74-99) mg/dL POC Glucose (mg/dL) 278 H (70-110) mg/dL Hemoglobin A1c (0.0-6.0) % Albumin/Globulin Ratio 1.58 L (1.60-3.17) g/dL HDL Cholesterol (40.00-60.00) mg/dL 03/05/22 Range/Units 12:12 WBC (3.8-10.6) k/uL RBC (4.10-5.20) X 10*6/uL Hgb (12.0-15.0) g/dL Hct (37.2-46.3) % MCHC (32.0-37.0) g/dL Immature Gran # (0.00-0.04) X 10*3/uL Neutrophils # (1.3-7.7) k/uL Lymphocytes # (1.0-4.8) k/uL Eosinophils # (0.04-0.35) X 10*3/uL BUN (7-17) mg/dL Creatinine (0.52-1.04) mg/dL Est GFR (CKD-EPI)AfAm (60.0-200.0) Est GFR (CKD-EPI)NonAf (60.0-200.0) BUN/Creatinine Ratio (12.00-20.00) Ratio Glucose (74-99) mg/dL POC Glucose (mg/dL) 347 H (70-110) mg/dL Hemoglobin A1c (0.0-6.0) % Albumin/Globulin Ratio (1.60-3.17) g/dL HDL Cholesterol (40.00-60.00) mg/dL Assessment and Plan Assessment: 1 Acute hypoxemic respiratory failure secondary to aspiration pneumonia 2 Aspiration pneumonia. 3 Status post bilateral direct microscopic tympanic chest PA and tube placement with lavage 4 Status post bilateral endoscopic balloon eustachian tuboplasty 5 Diabetes mellitus, type II 6 Hypertension 7 Hyperlipidemia 8 History of mild intermittent chronic bronchial asthma 9 Remote history of smoking Plan: The patient was seen and evaluated Chest x-ray, medications and labs reviewed Stable for discharge from the pulmonary standpoint Evaluated for possible home oxygen Discontinue Zosyn Augmentin twice a day 10 days Medrol Dosepak Follow-up in the office in 1 week I have personally seen and examined the patient, performed the documentation and the assessment and plan as written. Number of minutes spent on the visit: 10.
--- NOTE | 2022-03-05 14:57 | P.PN ---
Subjective Progress Note Date: 03/05/22 History of Present Illness H&P Date: 03/04/22 Chief Complaint: Postoperative respiratory failure History of present illness: This is a 71-year-old female with history of persistent eustachian tube dysfunction. Patient had chronic serous otitis media with effusion bilaterally. Chronic mastoiditis, eustachian tube obstruction and hearing loss. Patient underwent bilateral direct microscopic tympanostomy and tube placement with lavage. Bilateral endoscopic balloon eustachian tuboplasty today. Apparently the patient had her surgery done under general anesthesia, and during the surgery the patient vomited, and there was clearly evidence of aspiration. Postoperatively, the patient had low oxygen saturation, abnormal chest x-ray consistent with right upper lobe and right lower lobe infiltrate, patient was admitted instead of being discharged home, and I was asked to see her on consultation. Patient is now on 2 L nasal cannula, O2 saturations 93%. Chest x-ray is consistent with aspiration pneumonia. Symptoms bello the patient has intermittent cough, no fever, no chills, no hemoptysis. Patient denies any chest pain. She is currently on 2 L nasal cannula. Interval history: Patient was examined at bedside. She still complaining of exertional dyspnea and productive cough. She denies any chest pain, nausea vomiting.. Patient still on 2 L of oxygen. Kidney function is getting worse overnight. Otherwise no acute changes overnight Physical examination: General: non toxic, no distress, appears at stated age Derm: warm, dry Head: atraumatic, normocephalic, symmetric Eyes: EOMI, no lid lag, anicteric sclera Mouth: no lip lesion, mucus membranes moist Cardiovascular: S1S2 reg, no murmur, positive posterior tibial pulse bilateral, Lungs: Bilateral crackles. Abdominal: soft, nontender to palpation, no guarding, no appreciable organomegaly Ext: no gross muscle atrophy, no edema, no contractures Neuro: CN II-XI grossly intact, no focal neuro deficits Psych: Alert, oriented, appropriate affect Assessment and plan: #Postoperative acute respiratory failure secondary to aspiration pneumonia -Patient started on Zosyn -Breathing treatments -Incentive spirometer -Oral steroids per pulmonary -Repeat chest x-ray in the morning #History of mild intermittent asthma -Bronchodilator treatments -Resume Singulair #Type 2 diabetes mellitus with uncontrolled hyperglycemia -Hyperglycemia secondary to steroids -Diabetic diet -A1c 9 -Sliding scale insulin #Acute kidney injury -No known baseline creatinine -Suspect prerenal azotemia -Renal ultrasound ordered -Consult nephrology -Start the patient IV fluid Macera 100 mL per hour #Past medical history of TIAs -Patient will not and aspirin at home -Start baby aspirin resume statins and check lipid panel #Hypertension -Hold lisinopril due to worsening renal failure #Status post Bilateral direct microscopic tympanostomy and tube placement with lavage Status post Bilateral endoscopic balloon eustachian tuboplasty -Resume eardrops per ENT -She is on IV antibiotics -By mouth antibiotic on discharge #DVT prophylaxis with Lovenox Objective - Vital Signs Vital signs: Vital Signs Temp 98.8 F 03/05/22 12:57 Pulse 70 03/05/22 12:57 Resp 16 03/05/22 12:57 BP 131/69 03/05/22 12:57 Pulse Ox 96 03/05/22 12:57 FiO2 Intake & Output 03/04/22 03/05/22 03/05/22 18:59 06:59 18:59 Intake Total 1000 480 Output Total 5 Balance 995 480 Weight 83.5 kg 83.5 kg Intake: IV 600 Intake, IV Titration 400 Amount Lactated Ringers 1,000 ml 400 @ 20 mls/hr IV .Q24H [facility] Rx#:[id number] Oral 480 Output: Estimated Blood Loss 5 Other: Voiding Method Toilet Toilet # Voids 3 - Labs CBC & Chem 7: 03/05/22 06:13 03/05/22 06:13 Labs: Abnormal Lab Results - Last 24 Hours (Table) 03/04/22 03/04/22 03/04/22 Range/Units 15:09 15:09 15:16 WBC 11.0 H (3.8-10.6) k/uL RBC (4.10-5.20) X 10*6/uL Hgb (12.0-15.0) g/dL Hct (37.2-46.3) % MCHC (32.0-37.0) g/dL Immature Gran # (0.00-0.04) X 10*3/uL Neutrophils # 10.2 H (1.3-7.7) k/uL Lymphocytes # 0.5 L (1.0-4.8) k/uL Eosinophils # (0.04-0.35) X 10*3/uL BUN 32 H (7-17) mg/dL Creatinine 1.49 H (0.52-1.04) mg/dL Est GFR (CKD-EPI)AfAm (60.0-200.0) Est GFR (CKD-EPI)NonAf (60.0-200.0) BUN/Creatinine Ratio (12.00-20.00) Ratio Glucose 204 H (74-99) mg/dL POC Glucose (mg/dL) (70-110) mg/dL Hemoglobin A1c 9.0 H (0.0-6.0) % Albumin/Globulin Ratio (1.60-3.17) g/dL HDL Cholesterol (40.00-60.00) mg/dL 03/04/22 03/04/22 03/04/22 Range/Units 15:16 17:17 20:19 WBC (3.8-10.6) k/uL RBC (4.10-5.20) X 10*6/uL Hgb (12.0-15.0) g/dL Hct (37.2-46.3) % MCHC (32.0-37.0) g/dL Immature Gran # (0.00-0.04) X 10*3/uL Neutrophils # (1.3-7.7) k/uL Lymphocytes # (1.0-4.8) k/uL Eosinophils # (0.04-0.35) X 10*3/uL BUN (7-17) mg/dL Creatinine (0.52-1.04) mg/dL Est GFR (CKD-EPI)AfAm (60.0-200.0) Est GFR (CKD-EPI)NonAf (60.0-200.0) BUN/Creatinine Ratio (12.00-20.00) Ratio Glucose (74-99) mg/dL POC Glucose (mg/dL) 333 H 436 H (70-110) mg/dL Hemoglobin A1c (0.0-6.0) % Albumin/Globulin Ratio (1.60-3.17) g/dL HDL Cholesterol 61.60 H (40.00-60.00) mg/dL 03/04/22 03/04/22 03/05/22 Range/Units 21:10 23:04 06:13 WBC 18.41 H (3.8-10.6) k/uL RBC 3.30 L (4.10-5.20) X 10*6/uL Hgb 9.5 L (12.0-15.0) g/dL Hct 29.8 L (37.2-46.3) % MCHC 31.9 L (32.0-37.0) g/dL Immature Gran # 0.07 H (0.00-0.04) X 10*3/uL Neutrophils # 16.40 H (1.3-7.7) k/uL Lymphocytes # (1.0-4.8) k/uL Eosinophils # 0 L (0.04-0.35) X 10*3/uL BUN (7-17) mg/dL Creatinine (0.52-1.04) mg/dL Est GFR (CKD-EPI)AfAm (60.0-200.0) Est GFR (CKD-EPI)NonAf (60.0-200.0) BUN/Creatinine Ratio (12.00-20.00) Ratio Glucose (74-99) mg/dL POC Glucose (mg/dL) 418 H 402 H (70-110) mg/dL Hemoglobin A1c (0.0-6.0) % Albumin/Globulin Ratio (1.60-3.17) g/dL HDL Cholesterol (40.00-60.00) mg/dL 03/05/22 03/05/22 03/05/22 Range/Units 06:13 07:11 12:12 WBC (3.8-10.6) k/uL RBC (4.10-5.20) X 10*6/uL Hgb (12.0-15.0) g/dL Hct (37.2-46.3) % MCHC (32.0-37.0) g/dL Immature Gran # (0.00-0.04) X 10*3/uL Neutrophils # (1.3-7.7) k/uL Lymphocytes # (1.0-4.8) k/uL Eosinophils # (0.04-0.35) X 10*3/uL BUN 36.4 H (7-17) mg/dL Creatinine 1.8 H (0.52-1.04) mg/dL Est GFR (CKD-EPI)AfAm 32.3 L (60.0-200.0) Est GFR (CKD-EPI)NonAf 27.8 L (60.0-200.0) BUN/Creatinine Ratio 20.22 H (12.00-20.00) Ratio Glucose 262 H (74-99) mg/dL POC Glucose (mg/dL) 278 H 347 H (70-110) mg/dL Hemoglobin A1c (0.0-6.0) % Albumin/Globulin Ratio 1.58 L (1.60-3.17) g/dL HDL Cholesterol (40.00-60.00) mg/dL
--- NOTE | 2022-03-05 15:52 | US ---
EXAMINATION TYPE: US kidneys/renal and bladder DATE OF EXAM: 03/05/2022 COMPARISON: NONE CLINICAL HISTORY: RUSS. RUSS, renal failure EXAM MEASUREMENTS: Right Kidney: 10.5 x 4.7 x 3.7 cm Left Kidney: 11.4 x 5.8 x 4.2 cm Right Kidney: no evidence of hydronephrosis Left Kidney: no evidence of hydronephrosis Bladder: wnl Bilateral Jets seen: no There is no evidence for hydronephrosis at this point in time. No nephrolithiasis is seen. No erick s are identified. The urinary bladder is anechoic. Bilateral ureteral jets are seen. IMPRESSION: Unremarkable study
[2022-03-05 17:23] LABS: Glucose,Whole Blood 395 mg/dL (70-110)
[2022-03-05] MEDS: SODIUM CHLORIDE 0.9% 1,000 ML IV SCH (18:27)
[2022-03-05 20:25] LABS: Glucose,Whole Blood 412 mg/dL (70-110)
[2022-03-05] MEDS: PREGABALIN 75 MG CAP PO SCH (21:32)
[2022-03-05] MEDS: AMOXIC-POT CLAV 875-125MG 1 EACH TAB PO SCH (21:32)
[2022-03-05] MEDS: MONTELUKAST 10 MG TAB PO SCH (21:32)
[2022-03-05] MEDS ORDERED: INSULIN ASPART (NovoLOG) 100 UNIT/ML VIAL SQ ONE (21:36)
[2022-03-05] MEDS: INSULIN DETEMIR (LEVEMIR) 100 UNIT/ML SYR SQ SCH (22:07)
[2022-03-06 01:23] LABS: Glucose,Whole Blood 208 mg/dL (70-110)
[2022-03-06] MEDS: SODIUM CHLORIDE 0.9% 1,000 ML IV SCH ×3 (04:02→22:16)
[2022-03-06 07:21] LABS: Glucose,Whole Blood 159 mg/dL (70-110)
[2022-03-06] MEDS: IPRATROPIUM-ALBUTEROL 3 ML NEB INHALATION SCH ×4 (07:34→19:20)
[2022-03-06] MEDS: INSULIN ASPART (NovoLOG) 100 UNIT/ML VIAL SQ SCH ×7 (08:41→22:15)
[2022-03-06] MEDS: OFLOXACIN 0.3% OPHTH DROPS 5 ML BOTTLE BOTH EARS SCH ×2 (08:41→22:16)
[2022-03-06] MEDS: AMOXIC-POT CLAV 875-125MG 1 EACH TAB PO SCH ×2 (08:42→22:16)
[2022-03-06] MEDS: ASPIRIN 81 MG PO SCH (08:42)
[2022-03-06] MEDS: ATORVASTATIN 40 MG TAB PO SCH (08:42)
[2022-03-06] MEDS: PYRIDOXINE 50 MG TAB PO SCH (08:42)
[2022-03-06] MEDS: LORATADINE 10 MG TAB PO SCH (08:42)
[2022-03-06] MEDS: methylPREDNISolone 4 MG TAB TAPER PO SCH (08:42)
[2022-03-06] MEDS: ENOXAPARIN 30 MG/0.3 ML SYRINGE SQ SCH (08:43)
[2022-03-06] MEDS: MAGNESIUM OXIDE 400 MG TAB PO SCH (08:43)
[2022-03-06 11:22] LABS: Glucose,Whole Blood 252 mg/dL (70-110)
[2022-03-06 11:34] LABS: African American GFR (CKD) 45 (>60 ml/min/1.73 sqM); Anion Gap 5 mmol/L; Blood Urea Nitrogen 32 mg/dL (7-17); Calcium 7.9 mg/dL (8.4-10.2); Carbon Dioxide 25 mmol/L (22-30); Chloride 110 mmol/L (98-107); Glucose 230 mg/dL (74-99); Non-African American GFR(CKD) 39 (>60 ml/min/1.73 sqM); Potassium 3.8 mmol/L (3.5-5.1); Sodium 140 mmol/L (137-145)
--- NOTE | 2022-03-06 12:17 | P.PN ---
Subjective Progress Note Date: 03/06/22 Principal diagnosis: Aspiration This is a 71-year-old female with history of persistent eustachian tube dysfunction. Patient had chronic serous otitis media with effusion bilaterally. Chronic mastoiditis, eustachian tube obstruction and hearing loss. Patient underwent bilateral direct microscopic tympanostomy and tube placement with lavage. Bilateral endoscopic balloon eustachian tuboplasty today. Apparently the patient had her surgery done under general anesthesia, and during the surgery the patient vomited, and there was clearly evidence of aspiration. Postoperatively, the patient had low oxygen saturation, abnormal chest x-ray consistent with right upper lobe and right lower lobe infiltrate, patient was admitted instead of being discharged home, and I was asked to see her on consultation. Patient is now on 2 L nasal cannula, O2 saturations 93%. Chest x-ray is consistent with aspiration pneumonia. Symptoms bello the patient has intermittent cough, no fever, no chills, no hemoptysis. The patient is seen today 03/05/2022 in follow-up on the regular medical floor. She is sitting up in bed. Awake and alert in no acute distress. Doing quite a bit better today compared to yesterday. He is maintaining O2 saturations in the mid 90s on 2 L/m per nasal cannula. She does have a productive cough of yellow brownish sputum. X-ray showing improved aeration in the right perihilar and right basilar infiltrates. White count 18.4. Hemoglobin 9.5. Platelets 235. Sodium 137. Potassium 4.7. BUN 36. Creatinine 1.8. Glucose 262. AST 16. ALT 17. She remains on Zosyn. The patient is seen today 03/06/2022 in follow-up on the regular medical floor. She is currently resting comfortably in bed. Awake and alert in no acute distress and maintaining O2 saturations in the mid 90s on 2 L/m per nasal cannula. She's afebrile. Hemodynamically stable. Sodium 140. Potassium 3.8. BUN 32. Creatinine 1.37. Glucose 230. Ultrasound of the kidneys revealed no evidence of hydronephrosis. No nephrolithiasis. No masses identified. She is continued on Augmentin, bronchodilators, Medrol Dosepak. Lovenox for DVT prophylaxis. Objective - Vital Signs Vital signs: Vital Signs Temp 97.7 F 03/06/22 05:00 Pulse 74 03/06/22 12:04 Resp 16 03/06/22 08:35 BP 131/71 03/06/22 05:00 Pulse Ox 94 L 03/06/22 07:34 FiO2 Intake & Output 03/05/22 03/06/22 03/06/22 18:59 06:59 18:59 Weight 83.5 kg Other: Voiding Method Toilet Toilet Toilet # Voids 3 2 - Exam GENERAL EXAM: Alert, very pleasant 71-year-old female, on 2 L nasal cannula, comfortable in no apparent distress. HEAD: Normocephalic. EYES: Normal reaction of pupils, equal size. NOSE: Clear with pink turbinates. THROAT: No erythema or exudates. NECK: No masses, no JVD. CHEST: No chest wall deformity. LUNGS: Equal air entry with few scattered crackles in the right base. CVS: S1 and S2 normal with no audible murmur, regular rhythm. ABDOMEN: No hepatosplenomegaly, normal bowel sounds, no guarding or rigidity. SPINE: No scoliosis or deformity SKIN: No rashes CENTRAL NERVOUS SYSTEM: No focal deficits, tone is normal in all 4 extremities. EXTREMITIES: There is no peripheral edema. No clubbing, no cyanosis. Peripheral pulses are intact. - Labs CBC & Chem 7: 03/05/22 06:13 03/06/22 11:03 Labs: Abnormal Lab Results - Last 24 Hours (Table) 03/05/22 03/05/22 03/05/22 Range/Units 06:13 12:12 17:20 Immature Gran # 0.07 H (0.00-0.04) X 10*3/uL Neutrophils # 16.40 H (1.80-7.70) X 10*3/uL Eosinophils # 0 L (0.04-0.35) X 10*3/uL Chloride (98-107) mmol/L BUN (7-17) mg/dL Creatinine (0.52-1.04) mg/dL Glucose (74-99) mg/dL POC Glucose (mg/dL) 347 H 395 H (70-110) mg/dL Calcium (8.4-10.2) mg/dL 03/05/22 03/06/22 03/06/22 Range/Units 20:24 01:22 07:19 Immature Gran # (0.00-0.04) X 10*3/uL Neutrophils # (1.80-7.70) X 10*3/uL Eosinophils # (0.04-0.35) X 10*3/uL Chloride (98-107) mmol/L BUN (7-17) mg/dL Creatinine (0.52-1.04) mg/dL Glucose (74-99) mg/dL POC Glucose (mg/dL) 412 H 208 H 159 H (70-110) mg/dL Calcium (8.4-10.2) mg/dL 03/06/22 03/06/22 Range/Units 11:03 11:20 Immature Gran # (0.00-0.04) X 10*3/uL Neutrophils # (1.80-7.70) X 10*3/uL Eosinophils # (0.04-0.35) X 10*3/uL Chloride 110 H (98-107) mmol/L BUN 32 H (7-17) mg/dL Creatinine 1.37 H (0.52-1.04) mg/dL Glucose 230 H (74-99) mg/dL POC Glucose (mg/dL) 252 H (70-110) mg/dL Calcium 7.9 L (8.4-10.2) mg/dL Assessment and Plan Assessment: 1 Acute hypoxemic respiratory failure secondary to aspiration pneumonia 2 Aspiration pneumonia 3 Status post bilateral direct microscopic tympanostomy and tube placement with lavage 4 Status post bilateral endoscopic balloon eustachian tuboplasty 5 Diabetes mellitus, type II 6 Hypertension 7 Hyperlipidemia 8 History of mild intermittent chronic bronchial asthma 9 Remote history of smoking 10 Acute kidney injury, improving Plan: The patient was seen and evaluated Medications and labs reviewed Cleared for discharge from the pulmonary standpoint Augmentin twice a day 10 days Medrol Dosepak Follow-up in the office in 1 week I have personally seen and examined the patient, performed the documentation and the assessment and plan as written. Number of minutes spent on the visit: 10.
--- NOTE | 2022-03-06 13:03 | P.NPCON ---
History of Present Illness - Reason for Consult acute renal failure - History of Present Illness Patient is a 71-year-old female with history of CK D NKF stage III with baseline creatinine around 1.2-1.3 mg/dL. Etiology is likely nephrosclerosis. Patient follows up as outpatient at our office. She is admitted to the hospital after ENT surgery for use taken tube dysfunction.. She had a new tube placed and there was concern for possible aspiration as patient had an emesis during surgery. Chest x-ray shows right upper lobe and right lower lobe infiltrate. Overall patient states she is feeling better. She denies any cough. Serum creatinine had increased to 1.8 from 1.49 yesterday and today it is down to 1.37 mg/dL. Patient is maintained on IV fluids. Blood pressure has not been low. She is currently voiding. Review of Systems As per HPI, the systems negative Past Medical History Past Medical History: Asthma, CVA/TIA, Diabetes Mellitus, Hyperlipidemia, Hypertension, Osteoarthritis (OA) Additional Past Medical History / Comment(s): "I had a couple false mini strokes a few years ago" LOW VITAMIN B6 - LOW -PAST HISTORY . 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 Past Anesthesia/Blood Transfusion Reactions: Previous Problems w/ Anesthesia, Motion Sickness Additional Past Anesthesia/Blood Transfusion Reaction / Comment(s): "has trouble waking up with anesthesia" TAKES LONGER TO WAKE UP Smoking Status: Former smoker - Past Family History Mother Family Medical History: Cancer Brother(s) Family Medical History: Cancer Sister(s) Family Medical History: Cancer Son(s) Family Medical History: Cancer Additional Family Medical History / Comment(s): PANCREATIC CANCER Medications and Allergies Home Medications Medication Instructions Recorded Confirmed Type Atorvastatin [Lipitor] 40 mg PO DAILY 08/05/21 03/04/22 History Ergocalciferol [Vitamin D2 (1250 1,250 mcg PO WE 08/05/21 03/04/22 History Mcg = [id number] Iu)] Fluticasone Nasal Grulla [Flonase 2 spray EA NOSTRIL DAILY PRN 08/05/21 03/04/22 History Nasal Grulla] Furosemide [Lasix] 20 mg PO DAILY 08/05/21 03/04/22 History Insulin Degludec [Tresiba 10 units SQ HS 08/05/21 03/04/22 History Flextouch U-100 Pen] Loratadine [Claritin] 10 mg PO DAILY 08/05/21 03/04/22 History Montelukast Sodium [Singulair] 10 mg PO HS 08/05/21 03/04/22 History Pregabalin [Lyrica] 75 mg PO HS 08/05/21 03/04/22 History Pyridoxine HCl (Vitamin B6) 100 mg PO DAILY 08/05/21 03/04/22 History [Vitamin B-6] glipiZIDE XL [Glucotrol Xl] 10 mg PO BID 08/05/21 03/04/22 History metFORMIN HCL [Glucophage] 1,000 mg PO BID 08/05/21 03/04/22 History ramipriL [Altace] 5 mg PO QAM 08/05/21 03/04/22 History Magnesium Oxide [Mag-Ox] 400 mg PO DAILY 03/02/22 03/04/22 History Allergies Allergy/AdvReac Type Severity Reaction Status Date / Time Sulfa (Sulfonamide Allergy Rash/Hives Verified 03/04/22 08:00 Antibiotics) Physical Exam Vitals: Vital Signs Temp Pulse Pulse Resp BP Pulse Ox 03/06/22 12:04 74 03/06/22 11:52 78 03/06/22 11:49 98.1 F 67 14 142/70 95 03/06/22 08:35 67 16 03/06/22 07:48 74 03/06/22 07:34 78 94 L 03/06/22 05:00 97.7 F 67 16 131/71 93 L 03/05/22 20:30 80 03/05/22 20:19 78 03/05/22 19:53 98.3 F 78 16 150/71 98 Intake and Output 03/05/22 03/06/22 03/06/22 22:59 06:59 14:59 Other: Voiding Method Toilet Toilet # Voids 3 2 Patient is awake, comfortable, not in any acute distress Examination of the heart S1 and S2 Examination lungs bilateral breath sounds are heard Abdomen is soft nontender Examination of the lower extremities shows no evidence of edema [employer] exam grossly intact Results - Lab Results Most recent lab results Calcium 7.9 mg/dL (8.4-10.2) L 03/06/22 11:03 Magnesium 2.2 mg/dL (1.5-2.4) 03/05/22 06:13 03/05/22 06:13 03/06/22 11:03 Assessment and Plan Assessment: 1. Acute kidney injury prerenal currently improved with IV hydration. Nonoliguric. 2. CK D NKF stage III a baseline creatinine around 1.2-1.3 mg/dL. Etiology is nephrosclerosis likely. UA currently not available but patient follows as outpatient at our office. 3. Aspiration pneumonia during surgery maintained on antibiotics and stable 4. Status post ENT surgery with tube placement 5. Type 2 diabetes Plan: Continue to encourage increase oral intake Check UA Repeat labs in a.m. Continue IV fluids. Next Thank you for the consultation. We'll continue to follow the patient with you during her hospitalization
[2022-03-06 14:45] LABS: Appearance,Urine Clear (Clear); Bilirubin,Urine Negative (Negative); Blood,Urine Negative (Negative); Color,Urine Light Yellow; Glucose,Urine (UA) 2+ (Negative); Ketones,Urine Negative (Negative); Leukocyte Esterase,Urine Negative (Negative); Nitrite,Urine Negative (Negative); PH, Urine 5.5 (5.0-8.0); Protein,Urine Trace (Negative); Specific Gravity,Urine 1.013 (1.001-1.035); Urobilinogen,Urine <2.0 mg/dL (<2.0)
[2022-03-06 16:57] LABS: Glucose,Whole Blood 262 mg/dL (70-110)
[2022-03-06 20:10] LABS: Glucose,Whole Blood 332 mg/dL (70-110)
[2022-03-06] MEDS: INSULIN DETEMIR (LEVEMIR) 100 UNIT/ML SYR SQ SCH (22:15)
[2022-03-06] MEDS: MONTELUKAST 10 MG TAB PO SCH (22:16)
[2022-03-06] MEDS: PREGABALIN 75 MG CAP PO SCH (22:16)
[2022-03-07] MEDS ORDERED: INSULIN DETEMIR (LEVEMIR) 100 UNIT/ML SYR SQ ONE (00:18)
--- NOTE | 2022-03-07 00:19 | P.PN ---
Subjective Progress Note Date: 03/06/22 This is a 71-year-old female with history of persistent eustachian tube dysfunction. Patient had chronic serous otitis media with effusion bilaterally. Chronic mastoiditis, eustachian tube obstruction and hearing loss. Patient underwent bilateral direct microscopic tympanostomy and tube placement with lavage. Bilateral endoscopic balloon eustachian tuboplasty today. Apparently the patient had her surgery done under general anesthesia, and during the surgery the patient vomited, and there was clearly evidence of aspiration. Postoperatively, the patient had low oxygen saturation, abnormal chest x-ray consistent with right upper lobe and right lower lobe infiltrate, patient was admitted instead of being discharged home, and I was asked to see her on consultation. Patient is now on 2 L nasal cannula, O2 saturations 93%. Chest x-ray is consistent with aspiration pneumonia. Symptoms bello the patient has intermittent cough, no fever, no chills, no hemoptysis. Patient denies any chest pain. She is currently on 2 L nasal cannula. 03/06/2022 Patient is currently resting in the bed. Awake alert and oriented x3. Requiring oxygen at 2 L via nasal cannula. Patient has been afebrile. No cough or sputum production. No nausea vomiting abdominal pain or diarrhea. Otherwise blood sugar is elevated. Patient is on Medrol Dosepak. No complaints of headache or dizziness or lightheadedness. Patient is being continued on antibiotics in the form of Augmentin. Insulin dose increasing and titrate as needed. Pulmonary is on board. Laboratory showed sodium 140 potassium 3.8 chloride 110 BUN 3020 creatinine 1.37. Nephrology and pulmonary on board. Current medications reviewed. Objective - Vital Signs Vital signs: Vital Signs Temp 98.1 F 03/06/22 11:49 Pulse 71 03/06/22 15:39 Resp 14 03/06/22 11:49 BP 142/70 03/06/22 11:49 Pulse Ox 93 L 03/06/22 15:28 FiO2 Intake & Output 03/05/22 03/06/22 03/06/22 18:59 06:59 18:59 Output Total 127 Balance -127 Weight 83.5 kg Output: Post Void Residual 127 Other: Voiding Method Toilet Toilet Toilet # Voids 3 2 - Exam Physical examination: General: non toxic, no distress, appears at stated age Derm: warm, dry Head: atraumatic, normocephalic, symmetric Eyes: EOMI, no lid lag, anicteric sclera Mouth: no lip lesion, mucus membranes moist Cardiovascular: S1S2 reg, no murmur, positive posterior tibial pulse bilateral, Lungs: Bilateral crackles. Abdominal: soft, nontender to palpation, no guarding, no appreciable org anomegaly Ext: no gross muscle atrophy, no edema, no contractures Neuro: CN II-XI grossly intact, no focal neuro deficits Psych: Alert, oriented, appropriate affect - Labs CBC & Chem 7: 03/05/22 06:13 03/07/22 17:36 Labs: Abnormal Lab Results - Last 24 Hours (Table) 03/05/22 03/05/22 03/06/22 Range/Units 17:20 20:24 01:22 Chloride (98-107) mmol/L BUN (7-17) mg/dL Creatinine (0.52-1.04) mg/dL Glucose (74-99) mg/dL POC Glucose (mg/dL) 395 H 412 H 208 H (70-110) mg/dL Calcium (8.4-10.2) mg/dL Urine Protein (Negative) Urine Glucose (UA) (Negative) 03/06/22 03/06/22 03/06/22 Range/Units 07:19 11:03 11:20 Chloride 110 H (98-107) mmol/L BUN 32 H (7-17) mg/dL Creatinine 1.37 H (0.52-1.04) mg/dL Glucose 230 H (74-99) mg/dL POC Glucose (mg/dL) 159 H 252 H (70-110) mg/dL Calcium 7.9 L (8.4-10.2) mg/dL Urine Protein (Negative) Urine Glucose (UA) (Negative) 03/06/22 Range/Units 13:03 Chloride (98-107) mmol/L BUN (7-17) mg/dL Creatinine (0.52-1.04) mg/dL Glucose (74-99) mg/dL POC Glucose (mg/dL) (70-110) mg/dL Calcium (8.4-10.2) mg/dL Urine Protein Trace H (Negative) Urine Glucose (UA) 2+ H (Negative) Assessment and Plan Assessment: Assessment and plan: #Postoperative acute respiratory failure secondary to aspiration pneumonia -Patient started on Zosyn -Breathing treatments -Incentive spirometer -Oral steroids per pulmonary -Repeat chest x-ray in the morning #History of mild intermittent asthma -Bronchodilator treatments -Resume Singulair #Type 2 diabetes mellitus with uncontrolled hyperglycemia -Hyperglycemia secondary to steroids. -Diabetic diet -A1c 9 -Sliding scale insulin. c/w insulin regimen #Acute kidney injury -No known baseline creatinine -Suspect prerenal azotemia -Renal ultrasound Ultrasound renal showed no hydronephrosis. Normal study. - nephrology is following -Start the patient IV fluid Macera 100 mL per hour #Past medical history of TIAs -Patient is not on aspirin at home -Start baby aspirin resume statins and check lipid panel #Hypertension -Hold lisinopril due to worsening renal failure #Status post Bilateral direct microscopic tympanostomy and tube placement with lavage Status post Bilateral endoscopic balloon eustachian tuboplasty -Resume eardrops per ENT -She is on IV antibiotics -By mouth antibiotic on discharge #DVT prophylaxis with Lovenox Time with Patient: Greater than 30
[2022-03-07 07:12] LABS: Glucose,Whole Blood 116 mg/dL (70-110)
[2022-03-07] MEDS: IPRATROPIUM-ALBUTEROL 3 ML NEB INHALATION SCH ×4 (07:26→20:22)
[2022-03-07] MEDS: LORATADINE 10 MG TAB PO SCH (08:04)
[2022-03-07] MEDS: AMOXIC-POT CLAV 875-125MG 1 EACH TAB PO SCH ×2 (08:04→20:59)
[2022-03-07] MEDS: methylPREDNISolone 4 MG TAB TAPER PO SCH (08:04)
[2022-03-07] MEDS: PYRIDOXINE 50 MG TAB PO SCH (08:04)
[2022-03-07] MEDS: ATORVASTATIN 40 MG TAB PO SCH (08:04)
[2022-03-07] MEDS: ENOXAPARIN 30 MG/0.3 ML SYRINGE SQ SCH (08:05)
[2022-03-07] MEDS: MAGNESIUM OXIDE 400 MG TAB PO SCH (08:05)
[2022-03-07] MEDS: INSULIN ASPART (NovoLOG) 100 UNIT/ML VIAL SQ SCH ×7 (08:05→20:57)
[2022-03-07] MEDS: SODIUM CHLORIDE 0.9% 1,000 ML IV SCH ×3 (08:05→17:30)
[2022-03-07] MEDS: ASPIRIN 81 MG PO SCH (08:05)
[2022-03-07] MEDS: OFLOXACIN 0.3% OPHTH DROPS 5 ML BOTTLE BOTH EARS SCH ×2 (08:07→21:00)
--- NOTE | 2022-03-07 10:01 | P.PN ---
Subjective Progress Note Date: 03/07/22 Principal diagnosis: Aspiration This is a 71-year-old female with history of persistent eustachian tube dysfunction. Patient had chronic serous otitis media with effusion bilaterally. Chronic mastoiditis, eustachian tube obstruction and hearing loss. Patient underwent bilateral direct microscopic tympanostomy and tube placement with lavage. Bilateral endoscopic balloon eustachian tuboplasty today. Apparently the patient had her surgery done under general anesthesia, and during the surgery the patient vomited, and there was clearly evidence of aspiration. Postoperatively, the patient had low oxygen saturation, abnormal chest x-ray consistent with right upper lobe and right lower lobe infiltrate, patient was admitted instead of being discharged home, and I was asked to see her on consultation. Patient is now on 2 L nasal cannula, O2 saturations 93%. Chest x-ray is consistent with aspiration pneumonia. Symptoms bello the patient has intermittent cough, no fever, no chills, no hemoptysis. The patient is seen today 03/05/2022 in follow-up on the regular medical floor. She is sitting up in bed. Awake and alert in no acute distress. Doing quite a bit better today compared to yesterday. He is maintaining O2 saturations in the mid 90s on 2 L/m per nasal cannula. She does have a productive cough of yellow brownish sputum. X-ray showing improved aeration in the right perihilar and right basilar infiltrates. White count 18.4. Hemoglobin 9.5. Platelets 235. Sodium 137. Potassium 4.7. BUN 36. Creatinine 1.8. Glucose 262. AST 16. ALT 17. She remains on Zosyn. The patient is seen today 03/06/2022 in follow-up on the regular medical floor. She is currently resting comfortably in bed. Awake and alert in no acute distress and maintaining O2 saturations in the mid 90s on 2 L/m per nasal cannula. She's afebrile. Hemodynamically stable. Sodium 140. Potassium 3.8. BUN 32. Creatinine 1.37. Glucose 230. Ultrasound of the kidneys revealed no evidence of hydronephrosis. No nephrolithiasis. No masses identified. She is continued on Augmentin, bronchodilators, Medrol Dosepak. Lovenox for DVT prophylaxis. The patient is seen today 03/07/2022 in follow-up on the regular medical floor. She is resting comfortably in bed. Awake and alert in no acute distress. Maintaining O2 saturations in the 90s on room air. Creatinine had been trending down. Labs today are pending. She remains on Augmentin, Medrol Dosepak, Singulair, bronchodilators. Objective - Vital Signs Vital signs: Vital Signs Temp 97.5 F L 03/07/22 04:56 Pulse 70 03/07/22 09:30 Resp 16 03/07/22 09:30 BP 144/86 03/07/22 08:12 Pulse Ox 98 03/07/22 07:26 FiO2 Intake & Output 03/06/22 03/07/22 03/07/22 18:59 06:59 18:59 Intake Total 360 1640 Output Total 127 Balance 233 1640 Intake: Intake, IV Titration 1100 Amount Sodium Chloride 0.9% 1, 1100 000 ml @ 100 mls/hr IV . Q10H [facility] Rx#:[id number] Oral 360 540 Output: Post Void Residual 127 Other: Voiding Method Toilet Toilet Toilet # Voids 3 1 - Exam GENERAL EXAM: Alert, very pleasant 71-year-old female, on room air, comfortable in no apparent distress. HEAD: Normocephalic. EYES: Normal reaction of pupils, equal size. NOSE: Clear with pink turbinates. THROAT: No erythema or exudates. NECK: No masses, no JVD. CHEST: No chest wall deformity. LUNGS: Equal air entry with few scattered crackles in the right base. CVS: S1 and S2 normal with no audible murmur, regular rhythm. ABDOMEN: No hepatosplenomegaly, normal bowel sounds, no guarding or rigidity. SPINE: No scoliosis or deformity SKIN: No rashes CENTRAL NERVOUS SYSTEM: No focal deficits, tone is normal in all 4 extremities. EXTREMITIES: There is no peripheral edema. No clubbing, no cyanosis. Peripheral pulses are intact. - Labs CBC & Chem 7: 03/05/22 06:13 03/06/22 11:03 Labs: Abnormal Lab Results - Last 24 Hours (Table) 03/06/22 03/06/22 03/06/22 Range/Units 11:03 11:20 13:03 Chloride 110 H (98-107) mmol/L BUN 32 H (7-17) mg/dL Creatinine 1.37 H (0.52-1.04) mg/dL Glucose 230 H (74-99) mg/dL POC Glucose (mg/dL) 252 H (70-110) mg/dL Calcium 7.9 L (8.4-10.2) mg/dL Urine Protein Trace H (Negative) Urine Glucose (UA) 2+ H (Negative) 03/06/22 03/06/22 03/07/22 Range/Units 16:55 20:07 07:09 Chloride (98-107) mmol/L BUN (7-17) mg/dL Creatinine (0.52-1.04) mg/dL Glucose (74-99) mg/dL POC Glucose (mg/dL) 262 H 332 H 116 H (70-110) mg/dL Calcium (8.4-10.2) mg/dL Urine Protein (Negative) Urine Glucose (UA) (Negative) Assessment and Plan Assessment: 1 Acute hypoxemic respiratory failure secondary to aspiration pneumonia 2 Aspiration pneumonia 3 Status post bilateral direct microscopic tympanostomy and tube placement with lavage 4 Status post bilateral endoscopic balloon eustachian tuboplasty 5 Diabetes mellitus, type II 6 Hypertension 7 Hyperlipidemia 8 History of mild intermittent chronic bronchial asthma 9 Remote history of smoking 10 Acute kidney injury, improving Plan: The patient was seen and evaluated Medications reviewed and labs pending Cleared for discharge from the pulmonary standpoint Augmentin twice a day 10 days Medrol Dosepak Follow-up chest x-ray in the office in 1 week I have personally seen and examined the patient, performed the documentation and the assessment and plan as written. Number of minutes spent on the visit: 10.
--- NOTE | 2022-03-07 10:43 | P.PN ---
Subjective Patient is seen for follow-up for acute kidney injury and top of chronic kidney disease. Renal function has improved Patient denies any significant complaints today. She is being discharged today. Objective - Vital Signs Vital signs: Vital Signs Temp 97.5 F L 03/07/22 04:56 Pulse 70 03/07/22 09:30 Resp 16 03/07/22 09:30 BP 144/86 03/07/22 08:12 Pulse Ox 98 03/07/22 07:26 FiO2 Intake & Output 03/06/22 03/07/22 03/07/22 18:59 06:59 18:59 Intake Total 360 1640 Output Total 127 Balance 233 1640 Intake: Intake, IV Titration 1100 Amount Sodium Chloride 0.9% 1, 1100 000 ml @ 100 mls/hr IV . Q10H [facility] Rx#:[id number] Oral 360 540 Output: Post Void Residual 127 Other: Voiding Method Toilet Toilet Toilet # Voids 3 1 - Exam Awake, comfortable, not in any acute distress Alert oriented 3 Examination of the heart S1 and S2 Examination lungs bilateral breath sounds are heard Abdomen is soft nontender Examination lower extremity shows no evidence of edema [employer] exam grossly intact - Labs CBC & Chem 7: 03/05/22 06:13 03/06/22 11:03 Labs: Abnormal Lab Results - Last 24 Hours (Table) 03/06/22 03/06/22 03/06/22 Range/Units 11:03 11:20 13:03 Chloride 110 H (98-107) mmol/L BUN 32 H (7-17) mg/dL Creatinine 1.37 H (0.52-1.04) mg/dL Glucose 230 H (74-99) mg/dL POC Glucose (mg/dL) 252 H (70-110) mg/dL Calcium 7.9 L (8.4-10.2) mg/dL Urine Protein Trace H (Negative) Urine Glucose (UA) 2+ H (Negative) 03/06/22 03/06/22 03/07/22 Range/Units 16:55 20:07 07:09 Chloride (98-107) mmol/L BUN (7-17) mg/dL Creatinine (0.52-1.04) mg/dL Glucose (74-99) mg/dL POC Glucose (mg/dL) 262 H 332 H 116 H (70-110) mg/dL Calcium (8.4-10.2) mg/dL Urine Protein (Negative) Urine Glucose (UA) (Negative) Assessment and Plan Assessment: 1. Acute kidney injury prerenal currently improved with IV hydration. Nonoliguric. 2. CK D NKF stage III a baseline creatinine around 1.2-1.3 mg/dL. Etiology is nephrosclerosis likely. UA currently not available but patient follows as outpatient at our office. 3. Aspiration pneumonia during surgery maintained on antibiotics and stable 4. Status post ENT surgery with tube placement 5. Type 2 diabetes Plan: Patient is stable for discharge from nephrology standpoint. Follow-up as outpatient for CK D Can resume oral Lasix in about 2 days time.
[2022-03-07 11:07] LABS: Glucose,Whole Blood 92 mg/dL (70-110)
[2022-03-07 12:49] LABS: African American GFR (CKD) 52 (>60 ml/min/1.73 sqM); Anion Gap 7 mmol/L; Blood Urea Nitrogen 24 mg/dL (7-17); Calcium 8.6 mg/dL (8.4-10.2); Carbon Dioxide 21 mmol/L (22-30); Chloride 111 mmol/L (98-107); Glucose 136 mg/dL (74-99); Non-African American GFR(CKD) 45 (>60 ml/min/1.73 sqM); Potassium 4.8 mmol/L (3.5-5.1); Sodium 139 mmol/L (137-145)
[2022-03-07 17:12] LABS: Glucose,Whole Blood 427 mg/dL (70-110)
[2022-03-07] MEDS ORDERED: INSULIN ASPART (NovoLOG) 100 UNIT/ML VIAL SQ ONE (18:29)
[2022-03-07 20:46] LABS: Glucose,Whole Blood 131 mg/dL (70-110)
[2022-03-07] MEDS: MONTELUKAST 10 MG TAB PO SCH (20:58)
[2022-03-07] MEDS: PREGABALIN 75 MG CAP PO SCH (20:58)
[2022-03-07] MEDS ORDERED: INSULIN DETEMIR (LEVEMIR) 100 UNIT/ML SYR SQ SCH (21:00)
[2022-03-07 21:13] VITALS: RESP 16
--- NOTE | 2022-03-08 02:59 | P.PN ---
Subjective Progress Note Date: 03/07/22 This is a 71-year-old female with history of persistent eustachian tube dysfunction. Patient had chronic serous otitis media with effusion bilaterally. Chronic mastoiditis, eustachian tube obstruction and hearing loss. Patient underwent bilateral direct microscopic tympanostomy and tube placement with lavage. Bilateral endoscopic balloon eustachian tuboplasty today. Apparently the patient had her surgery done under general anesthesia, and during the surgery the patient vomited, and there was clearly evidence of aspiration. Postoperatively, the patient had low oxygen saturation, abnormal chest x-ray consistent with right upper lobe and right lower lobe infiltrate, patient was admitted instead of being discharged home, and I was asked to see her on consultation. Patient is now on 2 L nasal cannula, O2 saturations 93%. Chest x-ray is consistent with aspiration pneumonia. Symptoms bello the patient has intermittent cough, no fever, no chills, no hemoptysis. Patient denies any chest pain. She is currently on 2 L nasal cannula. 03/06/2022 Patient is currently resting in the bed. Awake alert and oriented x3. Requiring oxygen at 2 L via nasal cannula. Patient has been afebrile. No cough or sputum production. No nausea vomiting abdominal pain or diarrhea. Otherwise blood sugar is elevated. Patient is on Medrol Dosepak. No complaints of headache or dizziness or lightheadedness. Patient is being continued on antibiotics in the form of Augmentin. Insulin dose increasing and titrate as needed. Pulmonary is on board. Laboratory showed sodium 140 potassium 3.8 chloride 110 BUN 3020 creatinine 1.37. Nephrology and pulmonary on board. 03/07/2022 Patient is currently sitting in the bed. Awake alert and oriented x3. No complaints of chest pain or shortness of breath. Breathing status is better. 92% on room air. Patient is being continued on Medrol Dosepak and antibiotics and home Augmentin. Currently on bronchodilators. Pain pump is improving with creatinine 1.2 today. Nephrology is on board. Otherwise blood sugars were elevated this afternoon again. Continue with insulin sliding scale and insulin regimen with Levemir and preprandial insulin. Anticipate discharge in the next 24 hours with more clinical improvement. Current medications reviewed. Objective - Vital Signs Vital signs: Vital Signs Temp 98.4 F 03/07/22 21:00 Pulse 78 03/07/22 21:00 Resp 16 03/07/22 21:00 BP 162/82 03/07/22 21:00 Pulse Ox 95 03/07/22 21:00 FiO2 Intake & Output 03/07/22 03/07/22 03/08/22 06:59 18:59 06:59 Intake Total 1640 600 Balance 1640 600 Intake: Intake, IV Titration 1100 Amount Sodium Chloride 0.9% 1, 1100 000 ml @ 100 mls/hr IV . Q10H [facility] Rx#:[id number] Oral 540 600 Other: Voiding Method Toilet Toilet Toilet # Voids 1 4 # Bowel Movements 3 - Exam Physical examination: General: non toxic, no distress, appears at stated age Derm: warm, dry Head: atraumatic, normocephalic, symmetric Eyes: EOMI, no lid lag, anicteric sclera Mouth: no lip lesion, mucus membranes moist Cardiovascular: S1S2 reg, no murmur, positive posterior tibial pulse bilateral, Lungs: Bilateral crackles. Abdominal: soft, nontender to palpation, no guarding, no appreciable organomegaly Ext: no gross muscle atrophy, no edema, no contractures Neuro: CN II-XI grossly intact, no focal neuro deficits Psych: Alert, oriented, appropriate affect - Labs CBC & Chem 7: 03/05/22 06:13 03/07/22 17:36 Labs: Abnormal Lab Results - Last 24 Hours (Table) 03/07/22 03/07/22 03/07/22 Range/Units 07:09 12:15 17:10 Chloride 111 H (98-107) mmol/L Carbon Dioxide 21 L (22-30) mmol/L BUN 24 H (7-17) mg/dL Creatinine 1.22 H (0.52-1.04) mg/dL Glucose 136 H (74-99) mg/dL POC Glucose (mg/dL) 116 H 427 H (70-110) mg/dL 03/07/22 03/07/22 Range/Units 17:36 20:45 Chloride (98-107) mmol/L Carbon Dioxide (22-30) mmol/L BUN (7-17) mg/dL Creatinine (0.52-1.04) mg/dL Glucose 407 H (74-99) mg/dL POC Glucose (mg/dL) 131 H (70-110) mg/dL Assessment and Plan Assessment: Assessment and plan: #Postoperative acute respiratory failure secondary to aspiration pneumonia -Patient was started on Zosyn -Breathing treatments -Incentive spirometer -Oral steroids per pulmonary -Antibiotic changed to Augmentin and continue for total of 10 days. #History of mild intermittent asthma -Bronchodilator treatments -Resume Singulair #Type 2 diabetes mellitus with uncontrolled hyperglycemia -Hyperglycemia secondary to steroids. -Diabetic diet -A1c 9 -Sliding scale insulin. c/w insulin regimen #Acute kidney injury. on CKD 3 -1.2-1.3 baseline creatinine -Suspect prerenal azotemia -Renal ultrasound Ultrasound renal showed no hydronephrosis. Normal study. - nephrology is following -c/w IVF #Past medical history of TIAs -Patient is not on aspirin at home -Start baby aspirin resume statins and check lipid panel #Hypertension -Hold lisinopril due to worsening renal failure #Status post Bilateral direct microscopic tympanostomy and tube placement with lavage Status post Bilateral endoscopic balloon eustachian tuboplasty -Resume eardrops per ENT -Antibiotic changed to Augmentin and continue for total of 10 days. #DVT prophylaxis with Lovenox Time with Patient: Greater than 30
[2022-03-08 04:02] LABS: Glucose,Whole Blood 139 mg/dL (70-110)
[2022-03-08 07:21] LABS: Glucose,Whole Blood 160 mg/dL (70-110)
[2022-03-08] MEDS: IPRATROPIUM-ALBUTEROL 3 ML NEB INHALATION SCH ×2 (08:10→11:36)
[2022-03-08 08:43] LABS: Basophils # (A) 0.05 X 10*3/uL (0.00-0.10); Basophils % (A) 0.6 %; Eosinophils # (A) 0.47 X 10*3/uL (0.04-0.35); Eosinophils % (A) 5.8 %; HCT 31.7 % (37.2-46.3); Immature Grans, Automated 0.6 %; Lymphocytes # (A) 2.68 X 10*3/uL (0.90-5.00); Lymphocytes % (A) 32.8 %; MCH 28.7 pg (27.0-32.0); MCHC 31.5 g/dL (32.0-37.0); MCV 91.1 fL (80.0-97.0); Mean Platelet Volume 11.4 fL (9.5-12.2); Monocytes # (A) 0.57 X 10*3/uL (0.20-1.00); NRBC Per 100 WBC 0 /100 WBCS (0.0-0.0); Neutrophils # (A) 4.34 X 10*3/uL (1.80-7.70); Neutrophils % (A) 53.2 %; Platelet Count 262 X 10*3/uL (140-440); RBC 3.48 X 10*6/uL (4.10-5.20); RDW 13.2 % (11.5-14.5); WBC 8.16 X 10*3/uL (4.50-10.00)
[2022-03-08] MEDS: INSULIN ASPART (NovoLOG) 100 UNIT/ML VIAL SQ SCH ×4 (09:00→12:28)
[2022-03-08] MEDS ORDERED: ENOXAPARIN 40 MG/0.4 ML SYRINGE SQ SCH (09:00)
[2022-03-08 09:06] LABS: African American GFR (CKD) 46.9 (60.0-200.0); Anion Gap 9.8 mmol/L (10.00-18.00); BUN/Creat Ratio 18.94 Ratio (12.00-20.00); Calcium 8.8 mg/dL (8.7-10.3); Carbon Dioxide 21.8 mmol/L (20.0-27.5); Non-African American GFR(CKD) 40.5 (60.0-200.0); Potassium 4.8 mmol/L (3.5-5.5)
[2022-03-08] MEDS: OFLOXACIN 0.3% OPHTH DROPS 5 ML BOTTLE BOTH EARS SCH (09:19)
[2022-03-08] MEDS: MAGNESIUM OXIDE 400 MG TAB PO SCH (09:20)
[2022-03-08] MEDS: ASPIRIN 81 MG PO SCH (09:20)
[2022-03-08] MEDS: LORATADINE 10 MG TAB PO SCH (09:20)
[2022-03-08] MEDS: ATORVASTATIN 40 MG TAB PO SCH (09:20)
[2022-03-08] MEDS: AMOXIC-POT CLAV 875-125MG 1 EACH TAB PO SCH (09:20)
[2022-03-08] MEDS: PYRIDOXINE 50 MG TAB PO SCH (09:20)
[2022-03-08] MEDS: methylPREDNISolone 4 MG TAB TAPER PO SCH (09:21)
[2022-03-08 11:33] LABS: Glucose,Whole Blood 285 mg/dL (70-110)
[2022-03-08 12:35] VITALS: BP 177/72; PULSE 68; TEMP 97.5
[2022-03-08] MEDS: SODIUM CHLORIDE 0.9% 1,000 ML IV SCH (15:01)
--- NOTE | 2022-03-09 09:59 | P.DS ---
Providers Expected date of discharge: 03/08/22 Attending physician: Litzy Nguyen Consults: 03/04/22 13:32 Consult Physician Stat Consulting Provider: Litzy Nguyen Consult Reason/Comments: POSSIBLE ASPIRATION PNEUMONIA Do you want consulting provider notified?: Already Contacted 03/04/22 14:12 Consult Physician Routine Consulting Provider: Reinaldo Villatoro Consult Reason/Comments: postoperative hypoxia Do you want consulting provider notified?: Yes 03/05/22 14:53 Consult Physician Routine Consulting Provider: Paulette Aranda Consult Reason/Comments: RUSS Do you want consulting provider notified?: Yes Primary care physician: [facility] Course: Final diagnosis Bilateral direct tympanostomy and tube placement with bilateral endoscopic balloon eustachian tuboplasty with ENT Postoperative acute respiratory failure secondary to aspiration pneumonia History of mild intermittent asthma, not an exacerbation Diabetes mellitus type 2 uncontrolled with hypoglycemia Acute kidney injury with chronic kidney disease stage III, most likely prerenal azotemia History of TIAs Hypertension DVT prophylaxis Full code Discharge disposition Patient is being discharged in a stable condition with guarded prognosis to home. Patient will follow-up with Dr. Estrada in the outpatient setting upon discharge. Patient is to allow up with ENT Dr. Golden as scheduled. Patient will continue on oral Augmentin twice a day for the next 10 days. Continue eardrops and steroid taper of Medrol Dosepak. Total time taken is greater than 35 minutes. Hospital course This is a 71-year-old female who was recently admitted under ENT services for bilateral ear tube placement and during postop had an episode of emesis and was concerned for possible aspiration pneumonia and was admitted for further evaluation by pulmonary. Nephrology also following for acute kidney injury and functions have improved. Patient is anxious to leave today and has been cleared by ENT for follow-up in the outpatient setting. Pulmonary evaluated the patient and will continue on oral Augmentin twice daily for the next 10 days to complete the course. Patient is on room air and denies any further shortness of breath and also will continue the Medrol Dosepak. Kidney functions improving and recommend repeat labs in the next 2-3 days. Patient reports the feeling much better and is anxious to go home. Currently no reports of chest pain, shortness of breath, or palpitations. Patient is afebrile. No reports of nausea or vomiting and patient is tolerating diet. Patient will be going to discharge home with home care today. Guarded prognosis. On exam vital signs are stable. Cardio S1, S2 are muffled. Respiratory system shows diminished breath sounds at the bases with no wheezing or rhonchi noted. Abdomen is soft and nontender. Nervous system shows diffuse weakness. Please refer to medication reconciliation sheet for a list of medications. The impression and plan of care has been dictated by Laura Figueroa, Nurse Practitioner as directed. Dr. Patrick MD I have performed a history and examination and MDM of this patient, discussed the same with the dictator, and agree with the dictator's assessment and plan as written ,documented as a scribe. Based on total visit time, I have performed more than 50% of the visit. Patient Condition at Discharge: Stable Plan - Discharge Summary Discharge Rx Participant: No New Discharge Prescriptions: New Aspirin 81 mg PO DAILY #30 tab Amoxic-Pot Clav 875-125Mg [Augmentin 875-125] 1 each PO Q12HR 10 Days #20 tab methylPREDNISolone Dose Pack [Medrol Dose Pack] 4 mg PO DIRECTED #21 tab Ofloxacin 0.3% Ophth Soln [Ocuflox Ophth Soln] 5 drops BOTH EARS BID #7 ml Acetaminophen Tab [Tylenol] 650 mg PO Q6HR PRN tab PRN Reason: Mild Pain Or Fever > 100.5 Continue Loratadine [Claritin] 10 mg PO DAILY Pregabalin [Lyrica] 75 mg PO HS metFORMIN HCL [Glucophage] 1,000 mg PO BID ramipriL [Altace] 5 mg PO QAM Ergocalciferol [Vitamin D2 (1250 Mcg = 57754 Iu)] 1,250 mcg PO WE Pyridoxine HCl (Vitamin B6) [Vitamin B-6] 100 mg PO DAILY Fluticasone Nasal [place] [Flonase Nasal [place]] 2 spray EA NOSTRIL DAILY PRN PRN Reason: allergies Magnesium Oxide [Mag-Ox] 400 mg PO DAILY Furosemide [Lasix] 20 mg PO DAILY #0 Montelukast Sodium [Singulair] 10 mg PO HS glipiZIDE XL [Glucotrol XL] 10 mg PO BID Atorvastatin [Lipitor] 40 mg PO DAILY Insulin Degludec [Tresiba Flextouch U-100 Pen] 10 units SQ HS Discharge Medication List Atorvastatin [Lipitor] 40 mg PO DAILY 08/05/21 [History] Ergocalciferol [Vitamin D2 (1250 Mcg = 96448 Iu)] 1,250 mcg PO WE 08/05/21 [History] Fluticasone Nasal [place] [Flonase Nasal [place]] 2 spray EA NOSTRIL DAILY PRN 08/05/21 [History] Insulin Degludec [Tresiba Flextouch U-100 Pen] 10 units SQ HS 08/05/21 [History] Loratadine [Claritin] 10 mg PO DAILY 08/05/21 [History] Montelukast Sodium [Singulair] 10 mg PO HS 08/05/21 [History] Pregabalin [Lyrica] 75 mg PO HS 08/05/21 [History] Pyridoxine HCl (Vitamin B6) [Vitamin B-6] 100 mg PO DAILY 08/05/21 [History] glipiZIDE XL [Glucotrol XL] 10 mg PO BID 08/05/21 [History] metFORMIN HCL [Glucophage] 1,000 mg PO BID 08/05/21 [History] ramipriL [Altace] 5 mg PO QAM 08/05/21 [History] Magnesium Oxide [Mag-Ox] 400 mg PO DAILY 03/02/22 [History] Acetaminophen Tab [Tylenol] 650 mg PO Q6HR PRN tab 03/08/22 [Rx] Amoxic-Pot Clav 875-125Mg [Augmentin 875-125] 1 each PO Q12HR 10 Days #20 tab 03/08/22 [Rx] Aspirin 81 mg PO DAILY #30 tab 03/08/22 [Rx] Furosemide [Lasix] 20 mg PO DAILY #0 03/08/22 [Rx] Ofloxacin 0.3% Ophth Soln [Ocuflox Ophth Soln] 5 drops BOTH EARS BID #7 ml 03/08/22 [Rx] methylPREDNISolone Dose Pack [Medrol Dose Pack] 4 mg PO DIRECTED #21 tab 03/08/22 [Rx] Follow up Appointment(s)/Referral(s): Shady Estrada MD [STAFF PHYSICIAN] - 03/31/22 9:30 am Mukul Faustin DO [Doctor of Osteopathic Medicine] - 03/24/22 10:30 am () Ambulatory/Diagnostic Orders: Complete Blood Count w/diff [LAB.AMB] Time Frame: 3 Days, Location: None Selected Patient Instructions/Handouts: *[facility] - Anesthesia Discharge Instructions, *[facility] - (PH ENT) Bilateral Tympanostomy & Tube Placement Activity/Diet/Wound Care/Special Instructions: Rest with head elevated to 24 hours. No heavy lifting or bending. Do not blow nose. Any problems or questions please call me in my cell phone at [phone] or at the office during business hours at [phone] NOTE TO PATIENT: PLEASE MAKE SURE TO TRIAL MANAGEMENT ASSOCIATE YOUR MEDICATIONS FROM DR FAUSTIN AFTER DISCHARGE. YOU DO NOT NEED TO TRIAL MANAGEMENT ASSOCIATE YOUR EAR DROPS LONG YOU TAKE HOME YOURS FROM THE HOSPITAL THOSE WERE FILLED AND STARTED HERE DURING YOUR HOSPITAL STAY. Continue holding Lasix for the next 2 days and follow-up with repeat labs and may initially start resuming Lasix Continue antibiotics until finished Continue steroid taper Repeat labs of CBC and BMP in 2-3 days Discharge Disposition: HOME SELF-CARE
[2022-03-10] MEDS ORDERED: ERGOCALCIFEROL 1,250 MCG (50,000 IU) CAPSULE PO SCH (09:00)
== END 2022-03-08 15:10 | disposition home or self-care (01) ==
LOC: OR 07:27 → 5NMEDONC 10:35 → OR 03-08 15:10
PROVIDERS: ATTEND Hospitalist
DX: H65.23 Chronic serous otitis media, bilateral (principal); H70.10 Chronic mastoiditis, unspecified ear; H68.103 Unspecified obstruction of Eustachian tube, bilateral; J95.4 Chemical pneumonitis due to anesthesia; H73.893 Other specified disorders of tympanic membrane, bilateral; Z87.891 Personal history of nicotine dependence; I12.9 Hypertensive chronic kidney disease with stage 1 through stage 4 chronic kidney disease, or unspecified chronic kidney disease; E11.22 Type 2 diabetes mellitus with diabetic chronic kidney disease; N18.30 Chronic kidney disease, stage 3 unspecified; K21.9 Gastro-esophageal reflux disease without esophagitis; J45.20 Mild intermittent asthma, uncomplicated; G47.30 Sleep apnea, unspecified; M19.90 Unspecified osteoarthritis, unspecified site; J32.9 Chronic sinusitis, unspecified; Z98.84 Bariatric surgery status; Z98.890 Other specified postprocedural states; Z98.51 Tubal ligation status; Z80.1 Family history of malignant neoplasm of trachea, bronchus and lung; Z80.3 Family history of malignant neoplasm of breast; Z80.0 Family history of malignant neoplasm of digestive organs; Z82.61 Family history of arthritis; Z83.3 Family history of diabetes mellitus; Z83.42 Family history of familial hypercholesterolemia; Z82.0 Family history of epilepsy and other diseases of the nervous system; Z79.84 Long term (current) use of oral hypoglycemic drugs; Z79.4 Long term (current) use of insulin; Z79.899 Other long term (current) drug therapy; Z91.09 Other allergy status, other than to drugs and biological substances; Z88.2 Allergy status to sulfonamides
CPT/HCPCS: 94640 ×4; 94760; 80061; 80053 ×2; 80048; 83735; 85025 ×3; 86140; 83036; 71045; 71046; 76770; 69436; 69949; C1726; J2543 ×2; J2250; J1100; J2405; J1650 ×4; J3010; J7509 ×5; J2704; J2001

== ENCOUNTER 2023-08-12 09:46 | Emergency (ER) | payer MEDICARE ==
[2023-08-12 10:09] VITALS: RESP 18
[2023-08-12 10:32] LABS: ALT 16 U/L (4-34); AST 18 U/L (14-36); African American GFR (CKD) 48 (>60 ml/min/1.73 sqM); Albumin 4.1 g/dL (3.5-5.0); Alkaline Phosphatase 61 U/L (38-126); Anion Gap 10 mmol/L; Blood Urea Nitrogen 19 mg/dL (7-17); Carbon Dioxide 27 mmol/L (22-30); Chloride 104 mmol/L (98-107); Glucose 213 mg/dL (74-99); Magnesium 1.4 mg/dL (1.6-2.3); Non-African American GFR(CKD) 42 (>60 ml/min/1.73 sqM); Potassium 4.5 mmol/L (3.5-5.1); Sodium 141 mmol/L (137-145); Total Bilirubin 0.4 mg/dL (0.2-1.3); Total Protein 6.9 g/dL (6.3-8.2)
--- NOTE | 2023-08-12 10:36 | XR ---
EXAMINATION TYPE: XR chest 2V DATE OF EXAM: 08/12/2023 COMPARISON: 03/05/2022 HISTORY: Shortness of breath TECHNIQUE: Frontal and lateral views of the chest are obtained. FINDINGS: Scattered senescent parenchymal changes noted. Hyperinflation compatible with COPD. No evidence for infiltrate. No evidence for atelectasis. Heart size is stable. Mediastinal structures are stable and grossly unremarkable. No evidence for hilar prominence. Degenerative changes dorsal spine. IMPRESSION: 1. No evidence for acute pulmonary disease.
--- NOTE | 2023-08-12 10:39 | ED ---
Chest Pain HPI - General Source: patient Mode of arrival: wheelchair Limitations: no limitations <Viral Evans - Last Filed: 08/12/23 10:40> <Osei Harkins - Last Filed: 08/12/23 13:57> - General Chief Complaint: Chest Pain Stated Complaint: Chest Pain Time Seen by Provider: 08/12/23 10:40 - History of Present Illness Initial Comments: 72-year-old female presenting to the ED with a chief complaint of chest pain. Patient states this morning for a.m. woke up with pain that originated in her back. Patient states that she sat up and it wrapped to her chest. Pain is squeezing in nature. Patient reports pain feels somewhat similar to history of indigestion. Patient states that she took Pepto-Bismol for this which did help alleviate the pain however patient notes that she is still having a small amount of pain prompting presentation to the ED for further evaluation. Denies shortness of breath. No lightheadedness or dizziness. (Viral Evans) Dictation was produced using [employer] dictation software. please excuse any grammatical, word or spelling errors. Chief Complaint: 72-year-old female presents with chest pain History of Present Illness: 70-year-old female presents emergency Department with chest pain. Patient does not have any cardiac history states that yesterday she had some sharp chest pain that felt like it was in her left chest. It radiated to her epigastric area. No associated diaphoresis or nausea. She describes the pain as sharp. No history of cardiac cath. States that she had a negative stress test in [place] several years ago. States that her pain is improved though still noticeable. The ROS documented in this emergency department record has been reviewed and confirmed by me. Those systems with pertinent positive or negative responses have been documented in the HPI. All other systems are other negative and/or no ncontributory. (Osei Harkins) - Related Data Home Medications Medication Instructions Recorded Confirmed Atorvastatin [Lipitor] 40 mg PO DAILY 08/05/21 03/15/22 Ergocalciferol [Vitamin D2 (1250 1,250 mcg PO WE 08/05/21 03/15/22 Mcg = 00355 Iu)] Fluticasone Nasal [place] [Flonase 2 spray EA NOSTRIL DAILY PRN 08/05/21 03/15/22 Nasal [place]] Insulin Degludec [Tresiba 10 units SQ HS 08/05/21 03/15/22 Flextouch U-100 Pen] Loratadine [Claritin] 10 mg PO DAILY 08/05/21 03/15/22 Montelukast Sodium [Singulair] 10 mg PO HS 08/05/21 03/15/22 Pregabalin [Lyrica] 75 mg PO HS 08/05/21 03/15/22 Pyridoxine HCl (Vitamin B6) 100 mg PO DAILY 08/05/21 03/15/22 [Vitamin B-6] glipiZIDE XL [Glucotrol XL] 10 mg PO BID 08/05/21 03/15/22 metFORMIN HCL [Glucophage] 1,000 mg PO BID 08/05/21 03/15/22 ramipriL [Altace] 5 mg PO QAM 08/05/21 03/15/22 Magnesium Oxide [Mag-Ox] 400 mg PO DAILY 03/02/22 03/15/22 Previous Rx's Medication Instructions Recorded Acetaminophen Tab [Tylenol] 650 mg PO Q6HR PRN tab 03/08/22 Amoxic-Pot Clav 875-125Mg 1 each PO Q12HR 10 Days #20 tab 03/08/22 [Augmentin 875-125] Aspirin 81 mg PO DAILY #30 tab 03/08/22 Furosemide [Lasix] 20 mg PO DAILY #0 03/08/22 Ofloxacin 0.3% Ophth Soln [Ocuflox 5 drops BOTH EARS BID #7 ml 03/08/22 Ophth Soln] methylPREDNISolone Dose Pack 4 mg PO DIRECTED #21 tab 03/08/22 [Medrol Dose Pack] Allergies Allergy/AdvReac Type Severity Reaction Status Date / Time mold Allergy Unknown Verified 08/12/23 09:51 Sulfa (Sulfonamide Allergy Rash/Hives Verified 03/15/22 09:01 Antibiotics) Review of Systems ROS Other: All systems not noted in ROS Statement are negative. <Viral Evans - Last Filed: 08/12/23 10:40> ROS Other: All systems not noted in ROS Statement are negative. <Osei Harkins - Last Filed: 08/12/23 13:57> ROS Statement: Those systems with pertinent positive or pertinent negative responses have been documented in the HPI. Past Medical History Past Medical History: Asthma, CVA/TIA, Diabetes Mellitus, Hyperlipidemia, Hypertension, Osteoarthritis (OA) Additional Past Medical History / Comment(s): "I had a couple false mini strokes a few years ago" LOW VITAMIN B6 - LOW -PAST HISTORY . 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 Past Anesthesia/Blood Transfusion Reactions: Previous Problems w/ Anesthesia, Motion Sickness Additional Past Anesthesia/Blood Transfusion Reaction / Comment(s): "has trouble waking up with anesthesia" TAKES LONGER TO WAKE UP Past Psychological History: No Psychological Hx Reported Smoking Status: Former smoker Past Alcohol Use History: None Reported Past Drug Use History: None Reported - Past Family History Mother Family Medical History: Cancer Brother(s) Family Medical History: Cancer Sister(s) Family Medical History: Cancer Son(s) Family Medical History: Cancer <Viral Evans - Last Filed: 08/12/23 10:40> General Exam Limitations: no limitations General appearance: alert Neck exam: Present: normal inspection Extremities exam: Present: normal inspection Back exam: Present: normal inspection Neurological exam: Present: alert <Viral Evans - Last Filed: 08/12/23 10:40> <Osei Harkins - Last Filed: 08/12/23 13:57> - General Exam Comments Initial Comments: PHYSICAL EXAM: General Impression: Alert and oriented x3, not in acute distress HEENT: Normocephalic atraumatic, extra-ocular movements intact, pupils equal and reactive to light bilaterally, mucous membranes moist. 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 Signed Viral Evans PA-C (Viral Evans) My EKG interpretation: Ventricular rate 70, sinus rhythm,. 169, S1, QTc 437. No SD prolongation, no QTC prolongation, no ST or T-wave changes noted. Overall, this EKG is unremarkable Was pt. sent in by a medical professional or institution (RUBEN Cardoso, CUSTOMER ACCOUNTS ADVISOR, urgent care, hospital, or fci...) When possible be specific @ -No Did you speak to anyone other than the patient for history (EMS, parent, family, police, friend...)? What history was obtained from this source @ -No Did you review nursing and triage notes (agree or disagree)? Why? @ -I reviewed and agree with nursing and triage notes Were old charts reviewed (outside hosp., previous admission, EMS record, old EKG, old radiological studies, urgent care reports/EKG's, fci records)? Report findings @ -No old charts were reviewed Differential Diagnosis (chest pain, altered mental status, abdominal pain women, abdominal pain men, vaginal bleeding, musculoskeletal, weakness, fever, dyspnea, syncope, headache, dizziness, GI bleed, back pain, seizure, CVA, palpatations, mental health)? @ -TDifferential Chest Pain: Stable Angina, Unstable Angina, STEMI, NSTEMI Aortic Dissection, Pneumothorax, Musculoskeletal, Esophageal Spasm GERD, Cholecystitis, Pancreatitis, Zoster, this is not meant to be an all-inclusive list. EKG interpreted by me (3pts min.). @ -See above X-rays interpreted by me (1pt min.). @ -Chest x-ray is nonacute CT interpreted by me (1pt min.). @ -None done U/S interpreted by me (1pt. min.). @ -None done What testing was considered but not performed or refused? (CT, X-rays, U/S, labs)? Why? @ -None What meds were considered but not given or refused? Why? @ -None Did you discuss the management of the patient with other professionals (professionals i.e. Dr., PA, CUSTOMER ACCOUNTS ADVISOR, lab, RT, psych nurse, social security assessor, lapping machine tender, teacher, submarine advisory team watch officer, hospice case manager)? Give summary @ -No Was smoking cessation discussed for >3mins.? @ -No Was critical care preformed (if so, how long)? @ -No Were there social determinants of health that impacted care today? How? (Homelessness, low income, unemployed, alcoholism, drug addiction, transportation, low edu. Level, literacy, decrease access to med. care, penitentiary, rehab)? @ -No Was there de-escalation of care discussed even if they declined (Discuss DNR or withdrawal of care, Hospice)? DNR status @ -No What co-morbidities impacted this encounter? (DM, HTN, Smoking, COPD, CAD, Cancer, CVA, ARF, Chemo, Hep., AIDS, mental health diagnosis, sleep apnea, morbid obesity)? @ -None Was patient admitted / discharged? Hospital course, mention meds given and route, prescriptions, significant lab abnormalities, going to OR and other pertinent info. @ -2-year-old female presents to the emergency room for atypical chest with typical features. Vital signs upon arrival are within acceptable limits. EKG is unremarkable. Physical examination is unremarkable. Laboratory evaluation obtained. Initial troponin is negative. She decision was made with patient patient was given disposition options of discharge versus second troponin and discharge versus observation admission with cardiology consultation. She does have some risk factors of age and her comorbidities. 2 troponins are negative. Patient given aspirin and observed in emergency department for several hours. Patient at discharge of eyes follow-up with primary care doctor for outpatient stress test. Return precautions discussed. Patient discharged Undiagnosed new problem with uncertain prognosis? @ -No Drug Therapy requiring intensive monitoring for toxicity (Heparin, Nitro, Insulin, Cardizem)? @ -No Were any procedures done? @ -No Diagnosis/symptom? Acute, or Chronic, or Acute on Chronic? Uncomplicated (without systemic symptoms) or Complicated (systemic symptoms)? @ -1. Chest pain Side effects of treatment? @ -No Exacerbation, Progression, or Severe Exacerbation? @ -No Poses a threat to life or bodily function? How? (Chest pain, [place], PR, pneumonia, PE, COPD, DKA, ARF, appy, cholecystitis, CVA, Diverticulitis, Homicidal, Suicidal, threat to staff... and all critical care pts) @ -yes (Osei Harkins) Disposition <Viral Evans - Last Filed: 08/12/23 10:40> Is patient prescribed a controlled substance at d/c from ED?: No Time of Disposition: 13:57 <Osei Harkins - Last Filed: 08/12/23 13:57> Clinical Impression: Chest pain Disposition: HOME SELF-CARE Condition: Fair Instructions (If sedation given, give patient instructions): Chest Pain (ED) Referrals: Ernesto Boyce MD [Primary Care Provider] - 1-2 days
[2023-08-12 10:44] LABS: INR 0.9 (<1.2); Partial Thromboplastin Time 23.6 sec (22.0-30.0); Prothrombin Time 9.9 sec (10.0-12.5)
[2023-08-12 10:45] LABS: Basophils % (A) 1 %; Eosinophils # (A) 0.3 k/uL (0-0.7); Eosinophils % (A) 4 %; HCT 32.6 % (34.0-46.0); HGB 10.9 gm/dL (11.4-16.0); Lymphocytes # (A) 1.6 k/uL (1.0-4.8); Lymphocytes % (A) 27 %; MCH 30.1 pg (25.0-35.0); MCHC 33.5 g/dL (31.0-37.0); MCV 89.9 fL (80.0-100.0); Mean Platelet Volume 9.4; Monocytes # (A) 0.3 k/uL (0-1.0); Monocytes % (A) 6 %; Neutrophils # (A) 3.7 k/uL (1.3-7.7); Neutrophils % (A) 61 %; Platelet Count 224 k/uL (150-450); RBC 3.63 m/uL (3.80-5.40); RDW 12.7 % (11.5-15.5)
[2023-08-12] MEDS ORDERED: ASPIRIN 81 MG PO STA (12:07)
[2023-08-12 14:29] VITALS: BP 164/89; PULSE 64; TEMP 97.3
== END 2023-08-12 14:10 | disposition home or self-care (01) ==
LOC: EC 09:46
DX: R07.89 Other chest pain (principal); E11.9 Type 2 diabetes mellitus without complications; I10 Essential (primary) hypertension; J45.909 Unspecified asthma, uncomplicated; E78.5 Hyperlipidemia, unspecified; Z79.4 Long term (current) use of insulin; Z79.84 Long term (current) use of oral hypoglycemic drugs; Z79.899 Other long term (current) drug therapy; Z86.73 Personal history of transient ischemic attack (TIA), and cerebral infarction without residual deficits; Z87.891 Personal history of nicotine dependence; Z88.2 Allergy status to sulfonamides; Z91.09 Other allergy status, other than to drugs and biological substances
CPT/HCPCS: 36415; 71046; 80053; 83735; 84484; 85025; 85610; 85730; 93005; 99285

== ENCOUNTER 2023-10-26 06:02 | Day surgery (SDC) | payer MEDICARE ==
[~2023-10-26 06:02] MED LIST changes: +ALPRAZolam 0.25 MG TAB PO PRN; +ALPRAZolam 0.5 MG TAB PO PRN; +ASPIRIN 325 MG TAB PO STA; -FAMOTIDINE 20 MG/2 ML VIAL IV PRN; +HEPARIN SODIUM,PORCINE (1 ML) 2,500 UNIT in SODIUM CHLORIDE 0.9% 250 ML IRRIGATION PRN; +HEPARIN SODIUM,PORCINE 10,000 UNIT in SODIUM CHLORIDE 0.9% 1,000 ML IRRIGATION PRN; +NITROGLYCERIN SL TABS 0.4 MG TAB SUBLINGUAL PRN; -Pre Op ABX Message 1 EACH MISC MISCELLANE ONE
[2023-10-26 07:01] LABS: Glucose,Whole Blood 159 mg/dL (70-110)
[2023-10-26] MEDS: SODIUM CHLORIDE 0.9% 1,000 ML in EMPTY BAG 1 BAG IV SCH (07:05)
[2023-10-26 07:06] VITALS: RESP 18; TEMP 97.7
[2023-10-26 07:18] LABS: Basophils # (A) 0.1 k/uL (0-0.2); Basophils % (A) 1 %; Eosinophils # (A) 0.5 k/uL (0-0.7); Eosinophils % (A) 5 %; HCT 34.8 % (34.0-46.0); HGB 11.6 gm/dL (11.4-16.0); Lymphocytes # (A) 2.3 k/uL (1.0-4.8); Lymphocytes % (A) 23 %; MCH 30.4 pg (25.0-35.0); MCHC 33.5 g/dL (31.0-37.0); MCV 90.9 fL (80.0-100.0); Mean Platelet Volume 9.5; Monocytes # (A) 0.4 k/uL (0-1.0); Monocytes % (A) 4 %; Neutrophils # (A) 6.6 k/uL (1.3-7.7); Neutrophils % (A) 66 %; Platelet Count 253 k/uL (150-450); RBC 3.83 m/uL (3.80-5.40)
[2023-10-26 07:29] LABS: African American GFR (CKD) 41 (>60 ml/min/1.73 sqM); Anion Gap 8 mmol/L; Blood Urea Nitrogen 31 mg/dL (7-17); Calcium 9.5 mg/dL (8.4-10.2); Carbon Dioxide 23 mmol/L (22-30); Chloride 110 mmol/L (98-107); Glucose 168 mg/dL (74-99); Non-African American GFR(CKD) 35 (>60 ml/min/1.73 sqM); Sodium 141 mmol/L (137-145)
[2023-10-26 07:32] LABS: Potassium 5.8 mmol/L (3.5-5.1)
[2023-10-26] MEDS: MIDAZOLAM 2 MG/2 ML VIAL IVP ONE (07:41)
[2023-10-26] MEDS: LIDOCAINE 1% INJ 10MG/ML (20 ML MDV) SQ ONE (07:42)
[2023-10-26] MEDS: VERAPAMIL SYRINGE (5 MG/10 ML) INTRAARTER ONE (07:43)
[2023-10-26] MEDS: fentaNYL (PF) 50 MCG/1 ML VIAL IVP ONE (07:44)
[2023-10-26] MEDS: HEPARIN SODIUM 1,000 UN/ML (10ML VL) IV ONE (07:46)
--- NOTE | 2023-10-26 08:11 | P.CARDCATH ---
Description of Procedure: PROCEDURES PERFORMED: Left heart catheterization, bilateral coronary angiography, ultrasound guided arterial access INDICATION: Abnormal stress test CONSENT:I have discussed the risks, benefits and alternative therapies for the above-mentioned procedure and for both sedation/analgesia as well as necessary blood product administration, if indicated, as they pertain to this patient. The patient has indicated understanding and acceptance of the risks and procedures discussed. PROCEDURE: After the risks, benefits and alternatives of the above mentioned procedure explained in detail with the patient, informed consent was obtained. Patient was taken to the catheterization lab and prepped and draped in usual fashion. Ultrasound guidance was used to assess for arterial access. 1% lidocaine was used to anesthetize the right radial artery. A 6-[place] sheath was placed in the right radial artery using modified Seldinger technique and ultrasound guidance. Left coronary angiography was performed with a 5-[place] JL 3.5 catheter and right coronary angiography was performed with a 5-[place] FR5 catheter in various views. A 5-[place] FR5 catheter was inserted into the left ventricle and pressure measurements were obtained. Given contrast threshold recommended staged intervention. iFR was not working at the time. The right radial sheath was removed and a TR band was placed with hemostasis achieved. The patient tolerated the procedure well. Patient was transported back to the post catheterization holding area in stable condition. Conscious Sedation: Patient was monitored under the direct supervision of myself for conscious sedation using Versed and fentanyl for a total duration of 20 minutes HEMODYNAMICS: Aorta: 138/72 LV: 131/5, LVEDP 12 SELECTIVE CORONARY ARTERIOGRAPHY: LEFT MAIN: The left main is a large caliber vessel which bifurcates into the LAD and circumflex. There is no significant stenosis. LEFT ANTERIOR DESCENDING CORONARY ARTERY: LAD is a large caliber vessel which wraps around to the apex. There is a proximal LAD 70% followed by a 50% stenosis with mild tender 20% stenosis otherwise. LEFT CIRCUMFLEX CORONARY ARTERY: Left circumflex is a moderate caliber vessel with mild luminal irregularities. RIGHT CORONARY ARTERY: The right coronary artery is a large caliber vessel which gives off a PDA and PLV branch and is the dominant vessel. There are mild luminal irregularities FINAL IMPRESSION: 1. CAD as described above with 70% proximal LAD stenosis 2. Normal left sided filling pressures PLAN: 1. Aggressive risk factor modification per most recent ACC/AHA guidelines. 2. LAD lesion and the therapy of the apical ischemia. Given contrast threshold staged intervention.
[2023-10-26 08:49] LABS: African American GFR (CKD) 40 (>60 ml/min/1.73 sqM); Anion Gap 9 mmol/L; Blood Urea Nitrogen 29 mg/dL (7-17); Calcium 9.2 mg/dL (8.4-10.2); Carbon Dioxide 20 mmol/L (22-30); Chloride 112 mmol/L (98-107); Glucose 165 mg/dL (74-99); Non-African American GFR(CKD) 35 (>60 ml/min/1.73 sqM); Potassium 4.7 mmol/L (3.5-5.1); Sodium 141 mmol/L (137-145)
[2023-10-26 13:14] VITALS: BP 148/74; PULSE 61
== END 2023-10-26 12:35 | disposition home or self-care (01) ==
LOC: CATHCVL 06:02
PROVIDERS: ATTEND Internal Medicine
DX: R94.39 Abnormal result of other cardiovascular function study (principal); E78.5 Hyperlipidemia, unspecified; I12.9 Hypertensive chronic kidney disease with stage 1 through stage 4 chronic kidney disease, or unspecified chronic kidney disease; E11.22 Type 2 diabetes mellitus with diabetic chronic kidney disease; N18.9 Chronic kidney disease, unspecified; D64.9 Anemia, unspecified; Z88.2 Allergy status to sulfonamides; Z79.899 Other long term (current) drug therapy; Z79.84 Long term (current) use of oral hypoglycemic drugs
CPT/HCPCS: 93458; 76937; 80048; 85025; 99152; C1894; J2250; J2001; J1644; J3010

== ENCOUNTER 2023-10-29 14:58 | Inpatient (IN) | payer MEDICARE ==
[2023-10-29] MEDS: ACETAMINOPHEN TAB 500 MG TAB PO STA (15:56)
--- NOTE | 2023-10-29 16:30 | ED ---
General Adult HPI - General Chief complaint: Fever Stated complaint: fever Time Seen by Provider: 10/29/23 15:41 Source: patient, RN notes reviewed, old records reviewed Mode of arrival: wheelchair Limitations: no limitations - History of Present Illness Initial comments: 72-year-old female presenting with fever, nasal congestion and cough. Symptoms began today. Patient denies sore throat, she states she's had some nasal congestion. She has a mild nonproductive cough. Patient had recent heart catheterization and is scheduled for intervention in the upcoming weeks. No active chest pain. No abdominal pain. No vomiting or diarrhea. - Related Data Home Medications Medication Instructions Recorded Confirmed Atorvastatin [Lipitor] 40 mg PO DAILY 08/05/21 10/20/23 Fluticasone Nasal [place] [Flonase 2 spray EA NOSTRIL DAILY PRN 08/05/21 10/20/23 Nasal [place]] Insulin Degludec [Tresiba 16 units SQ HS 08/05/21 10/26/23 Flextouch U-100 Pen] Loratadine [Claritin] 10 mg PO DAILY 08/05/21 10/20/23 Montelukast Sodium [Singulair] 10 mg PO HS 08/05/21 10/20/23 Pregabalin [Lyrica] 75 mg PO HS 08/05/21 10/20/23 Pyridoxine HCl (Vitamin B6) 100 mg PO DAILY 08/05/21 10/20/23 [Vitamin B-6] metFORMIN HCL [Glucophage] 1,000 mg PO BID 08/05/21 10/26/23 ramipriL [Altace] 5 mg PO QAM 08/05/21 10/20/23 Dapagliflozin Propanediol [Farxiga] 5 mg PO DAILY 10/20/23 10/26/23 Ofloxacin 0.3% Ophth Soln [Ocuflox 5 drops BOTH EARS BID PRN 10/20/23 10/20/23 Ophth Soln] Previous Rx's Medication Instructions Recorded Acetaminophen Tab [Tylenol] 650 mg PO Q6HR PRN tab 03/08/22 Aspirin 81 mg PO DAILY #30 tab 03/08/22 Clopidogrel [Plavix] 75 mg PO DAILY #90 tablet 10/26/23 Allergies Allergy/AdvReac Type Severity Reaction Status Date / Time mold Allergy Unknown Verified 10/29/23 15:21 Sulfa (Sulfonamide Allergy Rash/Hives Verified 10/29/23 15:21 Antibiotics) Review of Systems ROS Statement: Those systems with pertinent positive or pertinent negative responses have been documented in the HPI. ROS Other: All systems not noted in ROS Statement are negative. Past Medical History Past Medical History: Asthma, Chest Pain / Angina, CVA/TIA, Diabetes Mellitus, Hyperlipidemia, Hypertension, Osteoarthritis (OA), Renal Disease Additional Past Medical History / Comment(s): "I had a couple false mini strokes a few years ago" LOW VITAMIN B6 - LOW -PAST HISTORY . 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 Past Anesthesia/Blood Transfusion Reactions: Previous Problems w/ Anesthesia, Motion Sickness Additional Past Anesthesia/Blood Transfusion Reaction / Comment(s): "has trouble waking up with anesthesia" TAKES LONGER TO WAKE UP Past Psychological History: No Psychological Hx Reported Smoking Status: Former smoker Past Alcohol Use History: None Reported Past Drug Use History: None Reported - Past Family History Mother Family Medical History: Cancer Brother(s) Family Medical History: Cancer Sister(s) Family Medical History: Cancer Son(s) Family Medical History: Cancer General Exam Limitations: no limitations General appearance: alert, in no apparent distress Head exam: Present: atraumatic, normocephalic Eye exam: Present: normal appearance, PERRL Respiratory exam: Present: normal lung sounds bilaterally. Absent: respiratory distress, wheezes Cardiovascular Exam: Present: regular rate, normal rhythm GI/Abdominal exam: Present: soft. Absent: distended, tenderness, guarding Neurological exam: Present: alert, oriented X3, CN II-XII intact. Absent: motor sensory deficit Psychiatric exam: Present: normal affect, normal mood Skin exam: Present: warm, dry, intact. Absent: cyanosis, diaphoretic Course Vital Signs 10/29/23 10/29/23 15:18 17:12 Temperature 101.7 F H 100.8 F H Pulse Rate 98 Respiratory 20 Rate Blood Pressure 147/81 O2 Sat by Pulse 95 Oximetry Medical Decision Making - Medical Decision Making Was pt. sent in by a medical professional or institution (RUBEN Cardoso, FOOD CONSULTANT, urgent care, hospital, or half-way...) When possible be specific @ -No Did you speak to anyone other than the patient for history (EMS, parent, family, police, friend...)? What history was obtained from this source @ -No Did you review nursing and triage notes (agree or disagree)? Why? @ -I reviewed and agree with nursing and triage notes Were old charts reviewed (outside hosp., previous admission, EMS record, old EKG, old radiological studies, urgent care reports/EKG's, half-way records)? Report findings @ -No old charts were reviewed Differential Diagnosis (chest pain, altered mental status, abdominal pain women, abdominal pain men, vaginal bleeding, weakness, fever, dyspnea, syncope, headache, dizziness, GI bleed, back pain, seizure, CVA, palpatations, mental health, musculoskeletal)? @ Differential Fever: Pneumonia, viral URI, endocarditis, myocarditis, pericarditis, otitis, sinusitis , peritonsillar Abscess, retropharyngeal Abscess, epiglottitis, peritonitis, appendicitis, Alexandra cystitis, diverticulitis, hepatitis, colitis, UTI, PID, TOA, pyelonephritis, prostatitis, epididymitis, meningitis, encephalitis, pulmonary embolism, CVA, thyroid storm, pancreatitis, adrenal crisis, cavernous sinus thrombosis, this is not meant to be an all-inclusive list. EKG interpreted by me (3pts min.). @ -As above X-rays interpreted by me (1pt min.). @ Chest x-ray is negative for acute process, there is no focal pneumonia. CT interpreted by me (1pt min.). @ -None done U/S interpreted by me (1pt. min.). @ -None done What testing was considered but not performed or refused? (CT, X-rays, U/S, labs)? Why? @ -None What meds were considered but not given or refused? Why? @ -None Did you discuss the management of the patient with other professionals (professionals i.e. RUBEN Cardoso, FOOD CONSULTANT, lab, RT, psych nurse, social scientist, silk spreader, t eacher, personnel training officer, foster care case manager)? Give summary @ Sheet Was smoking cessation discussed for >3mins.? @ -No Was critical care preformed (if so, how long)? @ -No Were there social determinants of health that impacted care today? How? (Homelessness, low income, unemployed, alcoholism, drug addiction, transportation, low edu. Level, literacy, decrease access to med. care, senior care, r ehab)? @ -No Was there de-escalation of care discussed even if they declined (Discuss DNR or withdrawal of care, Hospice)? DNR status @ -No What co-morbidities impacted this encounter? (DM, HTN, Smoking, COPD, CAD, Cancer, CVA, ARF, Chemo, Hep., AIDS, mental health diagnosis, sleep apnea, morbid obesity)? @ -[CAD Was patient admitted / discharged? Hospital course, mention meds given and route, prescriptions, significant lab abnormalities, going to OR and other pertinent info. @ 72 -year-old female presenting with fever. Patient had a heart catheterization performed 3 days prior. The arterial puncture site does not appear infected. Patient has a very mild cough but no other infectious symptoms. No abdominal pain. No vomiting. No dysuria or hematuria. Patient's viral panel is negative. Chest x-ray is clear. Urinalysis is negative for infection. Blood cultures are obtained and CBC and CMP are ordered. She has a significant leukocytosis at 21,000. Given the fever and leukocytosis she is admitted for IV antibiotics, there is concern for bacteremia. Blood cultures are pending. Both cardiology and infectious disease placed on consult. Undiagnosed new problem with uncertain prognosis? @ -No Drug Therapy requiring intensive monitoring for toxicity (Heparin, Nitro, Insulin, Cardizem)? @ -No Were any procedures done? @ -No Diagnosis/symptom? @ -Fever, leukocytosis Acute, or Chronic, or Acute on Chronic? @ -[acute Uncomplicated (without systemic symptoms) or Complicated (systemic symptoms)? @ -default Side effects of treatment? @ -No Exacerbation, Progression, or Severe Exacerbation? @ -No Poses a threat to life or bodily function? How? (Chest pain, [place], [place], pneumonia, PE, COPD, DKA, ARF, appy, cholecystitis, CVA, Diverticulitis, Homicidal, Suicidal, threat to staff... and all critical care pts) @ -[Yes, sepsis - Lab Data Result diagrams: 10/29/23 17:08 02/10/24 17:08 Lab Results 10/29/23 10/29/23 10/29/23 Range/Units 15:55 15:55 17:08 WBC 21.5 H (3.8-10.6) k/uL RBC 3.88 (3.80-5.40) m/uL Hgb 12.0 (11.4-16.0) gm/dL Hct 35.2 (34.0-46.0) % MCV 90.6 (80.0-100.0) fL MCH 30.9 (25.0-35.0) pg MCHC 34.2 (31.0-37.0) g/dL RDW 12.7 (11.5-15.5) % Plt Count 268 (150-450) k/uL MPV 9.0 Neutrophils % 88 % Lymphocytes % 7 % Monocytes % 3 % Eosinophils % 1 % Basophils % 0 % Neutrophils # 19.0 H (1.3-7.7) k/uL Lymphocytes # 1.4 (1.0-4.8) k/uL Monocytes # 0.7 (0-1.0) k/uL Eosinophils # 0.3 (0-0.7) k/uL Basophils # 0.1 (0-0.2) k/uL Sodium (137-145) mmol/L Potassium (3.5-5.1) mmol/L Chloride (98-107) mmol/L Carbon Dioxide (22-30) mmol/L Anion Gap mmol/L BUN (7-17) mg/dL Creatinine (0.52-1.04) mg/dL Est GFR (CKD-EPI)AfAm (>60 ml/min/1.73 sqM) Est GFR (CKD-EPI)NonAf (>60 ml/min/1.73 sqM) Glucose (74-99) mg/dL Plasma Lactic Acid [place] (0.7-2.0) mmol/L Calcium (8.4-10.2) mg/dL Magnesium (1.6-2.3) mg/dL Total Bilirubin (0.2-1.3) mg/dL AST (14-36) U/L ALT (4-34) U/L Alkaline Phosphatase (38-126) U/L Total Protein (6.3-8.2) g/dL Albumin (3.5-5.0) g/dL Urine Color Colorless Urine Appearance Clear (Clear) Urine pH 7.0 (5.0-8.0) Ur Specific [place] 1.010 (1.001-1.035) Urine Protein Trace H (Negative) Urine Glucose (UA) 4+ H (Negative) Urine Ketones Negative (Negative) Urine Blood Negative (Negative) Urine Nitrite Negative (Negative) Urine Bilirubin Negative (Negative) Urine Urobilinogen <2.0 (<2.0) mg/dL Ur Leukocyte Esterase Negative (Negative) Influenza Type A (PCR) Not Detected (Not Detectd) Influenza Type B (PCR) Not Detected (Not Detectd) RSV (PCR) Not Detected (Not Detectd) SARS-CoV-2 (PCR) Not Detected (Not Detectd) 10/29/23 10/29/23 Range/Units 17:08 17:08 WBC (3.8-10.6) k/uL RBC (3.80-5.40) m/uL Hgb (11.4-16.0) gm/dL Hct (34.0-46.0) % MCV (80.0-100.0) fL MCH (25.0-35.0) pg MCHC (31.0-37.0) g/dL RDW (11.5-15.5) % Plt Count (150-450) k/uL MPV Neutrophils % % Lymphocytes % % Monocytes % % Eosinophils % % Basophils % % Neutrophils # (1.3-7.7) k/uL Lymphocytes # (1.0-4.8) k/uL Monocytes # (0-1.0) k/uL Eosinophils # (0-0.7) k/uL Basophils # (0-0.2) k/uL Sodium 137 (137-145) mmol/L Potassium 5.3 H (3.5-5.1) mmol/L Chloride 107 (98-107) mmol/L Carbon Dioxide 19 L (22-30) mmol/L Anion Gap 11 mmol/L BUN 23 H (7-17) mg/dL Creatinine 1.56 H (0.52-1.04) mg/dL Est GFR (CKD-EPI)AfAm 38 (>60 ml/min/1.73 sqM) Est GFR (CKD-EPI)NonAf 33 (>60 ml/min/1.73 sqM) Glucose 117 H (74-99) mg/dL Plasma Lactic Acid [place] 1.8 (0.7-2.0) mmol/L Calcium 9.7 (8.4-10.2) mg/dL Magnesium 1.9 (1.6-2.3) mg/dL Total Bilirubin 0.7 (0.2-1.3) mg/dL AST 22 (14-36) U/L ALT 19 (4-34) U/L Alkaline Phosphatase 89 (38-126) U/L Total Protein 7.7 (6.3-8.2) g/dL Albumin 4.5 (3.5-5.0) g/dL Urine Color Urine Appearance (Clear) Urine pH (5.0-8.0) Ur Specific [place] (1.001-1.035) Urine Protein (Negative) Urine Glucose (UA) (Negative) Urine Ketones (Negative) Urine Blood (Negative) Urine Nitrite (Negative) Urine Bilirubin (Negative) Urine Urobilinogen (<2.0) mg/dL Ur Leukocyte Esterase (Negative) Influenza Type A (PCR) (Not Detectd) Influenza Type B (PCR) (Not Detectd) RSV (PCR) (Not Detectd) SARS-CoV-2 (PCR) (Not Detectd) Disposition Clinical Impression: Fever, Leukocytosis Disposition: ADMITTED IP TO THIS HOSP Condition: Stable Is patient prescribed a controlled substance at d/c from ED?: No Referrals: Cathy Proctor MD [Primary Care Provider] - 1-2 days Time of Disposition: 18:16
[2023-10-29 16:34] LABS: Appearance,Urine Clear (Clear); Bilirubin,Urine Negative (Negative); Blood,Urine Negative (Negative); Color,Urine Colorless; Glucose,Urine (UA) 4+ (Negative); Ketones,Urine Negative (Negative); Leukocyte Esterase,Urine Negative (Negative); Nitrite,Urine Negative (Negative); Protein,Urine Trace (Negative); Urobilinogen,Urine <2.0 mg/dL (<2.0)
--- NOTE | 2023-10-29 16:38 | XR ---
EXAMINATION TYPE: XR chest 2V DATE OF EXAM: 10/29/2023 COMPARISON: Chest x-ray August 12, 2023 HISTORY: Fever and cough TECHNIQUE: Frontal and lateral views of the chest are obtained. FINDINGS: There is no suspicious new focal air space opacity, pleural effusion, or pneumothorax seen . Cardiomegaly remains present. Bridging osteophytes in the thoracic spine are redemonstrated. IMPRESSION: Cardiomegaly without acute pulmonary process.
[2023-10-29 17:23] LABS: Basophils # (A) 0.1 k/uL (0-0.2); Basophils % (A) 0 %; Eosinophils # (A) 0.3 k/uL (0-0.7); Eosinophils % (A) 1 %; HCT 35.2 % (34.0-46.0); Lymphocytes # (A) 1.4 k/uL (1.0-4.8); Lymphocytes % (A) 7 %; MCH 30.9 pg (25.0-35.0); MCHC 34.2 g/dL (31.0-37.0); MCV 90.6 fL (80.0-100.0); Monocytes # (A) 0.7 k/uL (0-1.0); Monocytes % (A) 3 %; Neutrophils % (A) 88 %; Platelet Count 268 k/uL (150-450); RBC 3.88 m/uL (3.80-5.40); RDW 12.7 % (11.5-15.5); WBC 21.5 k/uL (3.8-10.6)
[2023-10-29 17:32] LABS: ALT 19 U/L (4-34); AST 22 U/L (14-36); African American GFR (CKD) 38 (>60 ml/min/1.73 sqM); Albumin 4.5 g/dL (3.5-5.0); Alkaline Phosphatase 89 U/L (38-126); Anion Gap 11 mmol/L; Blood Urea Nitrogen 23 mg/dL (7-17); Calcium 9.7 mg/dL (8.4-10.2); Carbon Dioxide 19 mmol/L (22-30); Chloride 107 mmol/L (98-107); Glucose 117 mg/dL (74-99); Magnesium 1.9 mg/dL (1.6-2.3); Non-African American GFR(CKD) 33 (>60 ml/min/1.73 sqM); Potassium 5.3 mmol/L (3.5-5.1); Sodium 137 mmol/L (137-145); Total Bilirubin 0.7 mg/dL (0.2-1.3); Total Protein 7.7 g/dL (6.3-8.2)
[2023-10-29] MEDS ORDERED: ACETAMINOPHEN TAB 325 MG TAB PO PRN (17:57)
[2023-10-29] MEDS ORDERED: NALOXONE 0.4 MG/ML 1 ML VIAL IV PRN (17:57)
[2023-10-29] MEDS: SODIUM CHLORIDE 0.9% 1,000 ML IV SCH (18:14)
[2023-10-29] MEDS ORDERED: FLUTICASONE 50MCG/SPRAY NASAL 16GM EA NOSTRIL PRN (19:12)
[2023-10-29] MEDS ORDERED: DEXTROSE 50% SYRINGE 50 ML IVP PRN ×2 (19:13)
[2023-10-29 21:09] LABS: Glucose,Whole Blood 170 mg/dL (70-110)
--- NOTE | 2023-10-29 21:41 | P.HPIM ---
History of Present Illness this is a pleasant 72 yo female with psat medical history of multiple medical problems including Asthma, CVA/TIA, Diabetes Mellitus, Hyperlipidemia, Hypertension, Osteoarthritis pt had cardiac cath with about 3 days ago , stent was not placed but planned to be inserted in two weeks as per pt started to have fever today she was complaining from pain on her left leg about 10/10 but now completely resovled with no sequelae per pt , and pain in her left upper exterimity which is also resolved now she denies chest pain, Patient denies any dyspnea or change in urine or bowel habits. No neurological complaints yesterday she has 5 bouts of loose stool but again it is stopped she denies smoking, no alcohol ,no illicit drugs vitals are stable currently , she had fever on admission 101.[place] [address], rest of cbc, bmp and lft are unremarkable creatinine is 1.5 which is slightly above baseline of 1.2-1.4 with mild hyperkalemia cxr is negative for acute process ekg: no significant stt changes ua is negative viruses are undetected incluidng influenza, covid and RSV viruses blood culture is ordered andp ending currently pt received ceftriaxone in emergency room which will be continued Review of Systems CONSTITUTIONAL: No fever, no malaise, no fatigue. HEENT: No recent visual problems or hearing problems. Denied any sore throat. CARDIOVASCULAR: No orthopnea, PND, no palpitations, no syncope. PULMONARY: No shortness of breath, no cough, no hemoptysis. GASTROINTESTINAL: No diarrhea, no nausea, no vomiting, no abdominal pain. Normoactive bowel sounds. NEUROLOGICAL: No headaches, no weakness, no numbness. HEMATOLOGICAL: Denies any bleeding or petechiae. GENITOURINARY: Denies any burning micturition, frequency, or urgency. MUSCULOSKELETAL/RHEUMATOLOGICAL: Denies any joint pain, swelling, or any muscle pain. ENDOCRINE: Denies any polyuria or polydipsia. Past Medical History Past Medical History: Asthma, Chest Pain / Angina, CVA/TIA, Diabetes Mellitus, Hyperlipidemia, Hypertension, Osteoarthritis (OA), Renal Disease Additional Past Medical History / Comment(s): "I had a couple false mini strokes a few years ago" LOW VITAMIN B6 - LOW -PAST HISTORY . 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 Past Anesthesia/Blood Transfusion Reactions: Previous Problems w/ Anesthesia, Motion Sickness Additional Past Anesthesia/Blood Transfusion Reaction / Comment(s): "has trouble waking up with anesthesia" TAKES LONGER TO WAKE UP Past Psychological History: No Psychological Hx Reported Smoking Status: Former smoker Past Alcohol Use History: None Reported Past Drug Use History: None Reported - Past Family History Mother Family Medical History: Cancer Brother(s) Family Medical History: Cancer Sister(s) Family Medical History: Cancer Son(s) Family Medical History: Cancer Medications and Allergies Home Medications Medication Instructions Recorded Confirmed Type Atorvastatin [Lipitor] 40 mg PO DAILY 08/05/21 10/29/23 History Fluticasone Nasal [place] [Flonase 2 spray EA NOSTRIL DAILY PRN 08/05/21 10/29/23 History Nasal [place]] Insulin Degludec [Tresiba 16 units SQ HS 08/05/21 10/29/23 History Flextouch U-100 Pen] Loratadine [Claritin] 10 mg PO DAILY 08/05/21 10/29/23 History Montelukast Sodium [Singulair] 10 mg PO HS 08/05/21 10/29/23 History Pregabalin [Lyrica] 75 mg PO HS 08/05/21 10/29/23 History Pyridoxine HCl (Vitamin B6) 100 mg PO DAILY 08/05/21 10/29/23 History [Vitamin B-6] metFORMIN HCL [Glucophage] 1,000 mg PO BID 08/05/21 10/29/23 History Acetaminophen Tab [Tylenol] 650 mg PO Q6HR PRN tab 03/08/22 10/29/23 Rx Aspirin 81 mg PO DAILY #30 tab 03/08/22 10/29/23 Rx Dapagliflozin Propanediol [Farxiga] 5 mg PO DAILY 10/20/23 10/29/23 History Ofloxacin 0.3% Ophth Soln [Ocuflox 5 drops BOTH EARS BID PRN 10/20/23 10/29/23 History Ophth Soln] Clopidogrel [Plavix] 75 mg PO DAILY #90 tablet 10/26/23 10/29/23 Rx amLODIPine [Norvasc] 5 mg PO DAILY 10/29/23 10/29/23 History ramipriL [Altace] 10 mg PO BID 10/29/23 10/29/23 History Allergies Allergy/AdvReac Type Severity Reaction Status Date / Time mold Allergy Unknown Verified 10/29/23 18:17 Sulfa (Sulfonamide Allergy Rash/Hives Verified 10/29/23 18:17 Antibiotics) Physical Exam Vitals: Vital Signs Temp Pulse Resp BP Pulse Ox 10/29/23 19:24 99.0 F 71 16 128/64 93 L 10/29/23 18:56 99.0 F 10/29/23 18:16 100.1 F H 78 16 121/69 95 10/29/23 17:12 100.8 F H 10/29/23 15:18 101.7 F H 98 20 147/81 95 Intake and Output 10/29/23 10/29/23 10/29/23 06:59 14:59 22:59 Other: Weight 88.451 kg GENERAL: The patient is alert and oriented x3, not in any acute distress. Well developed, well nourished. HEENT: Pupils are round and equally reacting to light. EOMI. No scleral icterus. No conjunctival pallor. Normocephalic, atraumatic. No pharyngeal erythema. No thyromegaly. CARDIOVASCULAR: S1 and S2 present. No murmurs, rubs, or gallops. PULMONARY: Chest is clear to auscultation, no wheezing , no crackles. ABDOMEN: Soft, nontender, nondistended, normoactive bowel sounds. No palpable organomegaly. MUSCULOSKELETAL: No joint swelling or deformity. EXTREMITIES: No cyanosis, clubbing, or pedal edema. NEUROLOGICAL: Gross neurological examination did not reveal any focal deficits. SKIN: No rashes. no petechiae. Results CBC & Chem 7: 10/29/23 17:08 10/29/23 17:08 Labs: Abnormal Lab Results - Last 24 Hours (Table) 10/29/23 10/29/23 10/29/23 Range/Units 15:55 17:08 17:08 WBC 21.5 H (3.8-10.6) k/uL Neutrophils # 19.0 H (1.3-7.7) k/uL Potassium 5.3 H (3.5-5.1) mmol/L Carbon Dioxide 19 L (22-30) mmol/L BUN 23 H (7-17) mg/dL Creatinine 1.56 H (0.52-1.04) mg/dL Glucose 117 H (74-99) mg/dL C-Reactive Protein (<1.0) mg/dL Urine Protein Trace H (Negative) Urine Glucose (UA) 4+ H (Negative) 10/29/23 Range/Units 17:08 WBC (3.8-10.6) k/uL Neutrophils # (1.3-7.7) k/uL Potassium (3.5-5.1) mmol/L Carbon Dioxide (22-30) mmol/L BUN (7-17) mg/dL Creatinine (0.52-1.04) mg/dL Glucose (74-99) mg/dL C-Reactive Protein 2.3 H (<1.0) mg/dL Urine Protein (Negative) Urine Glucose (UA) (Negative) Assessment and Plan Assessment: sepsis with fever and leukocytosis recent history of cardiac cath coronary artery disease h/o Asthma h/o CVA/TIA Diabetes Mellitus Hyperlipidemia Hypertension Osteoarthritis Plan: c/w ceftriaxone f/u culture results we will order ct of abd with oral contrast only, no iv contrast because of kid disease ID team consult cardiology consult Labs and medication were reviewed.. Continue same treatment. Continue with symptomatic treatment. Resume home medication. Monitor labs and vitals. DVT and GI prophylaxis. Further recommendations as per clinical course of the patient DVT prophylaxis:xarelto GI Prophylaxis: Pepcid Prognosis is guarded
[2023-10-29] MEDS: MONTELUKAST 10 MG TAB PO SCH (22:09)
[2023-10-29] MEDS: PREGABALIN 75 MG CAP PO SCH (22:09)
[2023-10-29] MEDS: INSULIN ASPART (NovoLOG) 100 UNIT/ML VIAL SQ SCH (22:09)
[2023-10-29] MEDS: IOPAMIDOL CONTRAST (ORAL USE) VIAL PO PRN (22:56)
--- NOTE | 2023-10-30 01:36 | CT ---
ADDENDUM - Added by Rex Gale MD on 10/30/2023 5:05 AM (-08:00) ADDENDUM: The patient reportedly drained 50 mL of oral contrast prior to the examination. EXAM: CT Abdomen and Pelvis Without Intravenous Contrast CLINICAL HISTORY: sepsis TECHNIQUE: Axial computed tomography images of the abdomen and pelvis without intravenous contrast. CTDI is 11.9 mGy and DLP is 740.7 mGy-cm. This CT exam was performed using one or more of the following dose reduction techniques: automated exposure control, adjustment of the mA and/or kV according to patient size, and/or use of iterative reconstruction technique. COMPARISON: No relevant prior studies available. FINDINGS: Lung bases: Curvilinear changes at the lung bases with subtle areas of patchy ground-glass in the left lower lobe and potentially in the inferior lingular segments. No consolidation. ABDOMEN: Liver: Unremarkable. Gallbladder and bile ducts: Unremarkable. No calcified stones. No ductal dilation. Pancreas: Unremarkable. No ductal dilation. Spleen: Unremarkable. No splenomegaly. Adrenals: Unremarkable. No mass. Kidneys and ureters: Unremarkable. No obstructing stones. No hydronephrosis. Stomach and bowel: A gastric lap band is noted with some slippage of the fundus above the level of the lap band. There is prominent oral contrast distending the partially included distal thoracic esophagus and the fundus above the gastric lap band. However, there is contrast also noted in the mildly distended stomach and throughout the small bowel. No evidence for bowel obstruction. Moderate stool burden. No diverticulitis. PELVIS: Appendix: A normal caliber appendix is noted extending inferiorly from the cecum in the anterior right abdomen. Bladder: Unremarkable. No stones. Reproductive: Unremarkable as visualized. ABDOMEN and PELVIS: Intraperitoneal space: Unremarkable. No free air. No significant fluid collection. Bones/joints: No acute fracture. No dislocation. Soft tissues: Unremarkable. The lap band port is noted involving the left anterolateral abdomen. Vasculature: Unremarkable. No abdominal aortic aneurysm. Lymph nodes: Unremarkable. No enlarged lymph nodes. IMPRESSION: 1. A gastric lap band is noted with some slippage of the fundus above the level of the lap band. There is prominent oral contrast distending the partially included distal thoracic esophagus and the fundus above the gastric lap band. However, there is contrast also noted in the mildly distended stomach and throughout the small bowel. No evidence for bowel obstruction. No free intraperitoneal fluid or pneumoperitoneum. 2. Curvilinear changes at the lung bases with subtle areas of patchy ground-glass in the left lower lobe and potentially in the inferior lingular segments. This raises the suspicion for coexisting infection, to include atypical bacterial and viral etiologies.
[2023-10-30 06:18] LABS: Glucose,Whole Blood 152 mg/dL (70-110)
[2023-10-30] MEDS: INSULIN DETEMIR (LEVEMIR) 100 UNIT/ML SYR SQ SCH (08:37)
[2023-10-30] MEDS: ASPIRIN 81 MG PO SCH (08:39)
[2023-10-30] MEDS: ATORVASTATIN 40 MG TAB PO SCH (08:39)
[2023-10-30] MEDS: CLOPIDOGREL 75 MG TAB PO SCH (08:39)
[2023-10-30] MEDS: amLODIPine 5 MG TAB PO SCH (08:39)
[2023-10-30 09:44] LABS: Basophils # (A) 0.06 X 10*3/uL (0.00-0.10); Basophils % (A) 0.6 %; Eosinophils # (A) 0.29 X 10*3/uL (0.04-0.35); HCT 34.9 % (37.2-46.3); HGB 11.1 g/dL (12.0-15.0); Lymphocytes # (A) 2.33 X 10*3/uL (0.90-5.00); MCH 29.3 pg (27.0-32.0); MCHC 31.8 g/dL (32.0-37.0); MCV 92.1 FL (80.0-97.0); Mean Platelet Volume 11.6 FL (9.5-12.2); Monocytes # (A) 0.57 X 10*3/uL (0.20-1.00); Monocytes % (A) 5.9 %; NRBC Per 100 WBC 0 X 10*3/uL (0.00-0.01); Neutrophils # (A) 6.43 X 10*3/uL (1.80-7.70); Neutrophils % (A) 66.1 %; Platelet Count 260 X 10*3/uL (140-440); RBC 3.79 X 10*6/uL (4.10-5.20); RDW 12.7 % (11.5-14.5); WBC 9.72 X 10*3/uL (4.50-10.00)
[2023-10-30 09:58] LABS: BUN/Creat Ratio 14.88 Ratio (12.00-20.00); Blood Urea Nitrogen 25.3 mg/dL (9.0-27.0); Calcium 9.5 mg/dL (8.7-10.3); Carbon Dioxide 21.8 mmol/L (21.6-31.8); Chloride 105 mmol/L (96-109); Glucose 169 mg/dL (70-110); Potassium 5.3 mmol/L (3.5-5.5); Sodium 140 mmol/L (135-145)
[2023-10-30 11:24] LABS: Glucose,Whole Blood 242 mg/dL (70-110)
--- NOTE | 2023-10-30 14:31 | P.PN ---
Subjective this is a pleasant 72 yo female with psat medical history of multiple medical problems including Asthma, CVA/TIA, Diabetes Mellitus, Hyperlipidemia, Hypertension, Osteoarthritis pt had cardiac cath with about 3 days ago , stent was not placed but planned to be inserted in two weeks as per pt started to have fever today she was complaining from pain on her left leg about 10/10 but now completely resovled with no sequelae per pt , and pain in her left upper exterimity which is also resolved now she denies chest pain, Patient denies any dyspnea or change in urine or bowel habits. No neurological complaints yesterday she has 5 bouts of loose stool but again it is stopped she denies smoking, no alcohol ,no illicit drugs vitals are stable currently , she had fever on admission 101.[place] [address], rest of cbc, bmp and lft are unremarkable creatinine is 1.5 which is slightly above baseline of 1.2-1.4 with mild hyperkalemia cxr is negative for acute process ekg: no significant stt changes ua is negative viruses are undetected incluidng influenza, covid and RSV viruses blood culture is ordered andp ending currently pt received ceftriaxone in emergency room which will be continued 10/30/2023 Patient with no more symptoms today She has CT of the abdomen yesterday which showing basal pneumonia which is most likely the source of her infection. No fever or leukocytosis today with WBCs back to normal at 9. Also she has labs and slipped stomach above her gastric lap band, her surgeon is Dr. Beverly we are going to consult from tomorrow No cardiac issue Plan discussed with the patient and she is agreeable Objective - Vital Signs Vital signs: Vital Signs Temp 98.0 F 10/30/23 07:37 Pulse 75 10/30/23 07:37 Resp 18 10/30/23 07:37 BP 159/69 10/30/23 07:37 Pulse Ox 95 10/30/23 07:37 FiO2 Intake & Output 10/29/23 10/30/23 10/30/23 18:59 06:59 18:59 Weight 88.451 kg 88.451 kg Other: Voiding Method Toilet # Voids 3 - Exam GENERAL: The patient is alert and oriented x3, not in any acute distress. Well developed, well nourished. HEENT: Pupils are round and equally reacting to light. EOMI. No scleral icterus. No conjunctival pallor. Normocephalic, atraumatic. No pharyngeal erythema. No thyromegaly. CARDIOVASCULAR: S1 and S2 present. No murmurs, rubs, or gallops. PULMONARY: Chest is clear to auscultation, no wheezing , no crackles. ABDOMEN: Soft, nontender, nondistended, normoactive bowel sounds. No palpable organomegaly. MUSCULOSKELETAL: No joint swelling or deformity. EXTREMITIES: No cyanosis, clubbing, or pedal edema. NEUROLOGICAL: Gross neurological examination did not reveal any focal deficits. SKIN: No rashes. no petechiae. - Labs CBC & Chem 7: 10/30/23 07:11 10/30/23 07:11 Labs: Abnormal Lab Results - Last 24 Hours (Table) 10/29/23 10/29/23 10/29/23 Range/Units 15:55 17:08 17:08 WBC 21.5 H (3.8-10.6) k/uL RBC (4.10-5.20) X 10*6/uL Hgb (12.0-15.0) g/dL Hct (37.2-46.3) % MCHC (32.0-37.0) g/dL Neutrophils # 19.0 H (1.3-7.7) k/uL Potassium 5.3 H (3.5-5.1) mmol/L Carbon Dioxide 19 L (22-30) mmol/L Anion Gap (4.00-12.00) mmol/L BUN 23 H (7-17) mg/dL Creatinine 1.56 H (0.52-1.04) mg/dL Est GFR (CKD-EPI) (>=60) Glucose 117 H (74-99) mg/dL POC Glucose (mg/dL) (70-110) mg/dL Hemoglobin A1c (<=6.0) % C-Reactive Protein (<1.0) mg/dL Procalcitonin (0.02-0.09) ng/mL Urine Protein Trace H (Negative) Urine Glucose (UA) 4+ H (Negative) 10/29/23 10/29/23 10/29/23 Range/Units 17:08 17:08 17:08 WBC (3.8-10.6) k/uL RBC (4.10-5.20) X 10*6/uL Hgb (12.0-15.0) g/dL Hct (37.2-46.3) % MCHC (32.0-37.0) g/dL Neutrophils # (1.3-7.7) k/uL Potassium (3.5-5.1) mmol/L Carbon Dioxide (22-30) mmol/L Anion Gap (4.00-12.00) mmol/L BUN (7-17) mg/dL Creatinine (0.52-1.04) mg/dL Est GFR (CKD-EPI) (>=60) Glucose (74-99) mg/dL POC Glucose (mg/dL) (70-110) mg/dL Hemoglobin A1c 10.2 H (<=6.0) % C-Reactive Protein 2.3 H (<1.0) mg/dL Procalcitonin 0.14 H (0.02-0.09) ng/mL Urine Protein (Negative) Urine Glucose (UA) (Negative) 10/29/23 10/30/23 10/30/23 Range/Units 21:08 06:16 07:11 WBC (3.8-10.6) k/uL RBC 3.79 L (4.10-5.20) X 10*6/uL Hgb 11.1 L (12.0-15.0) g/dL Hct 34.9 L (37.2-46.3) % MCHC 31.8 L (32.0-37.0) g/dL Neutrophils # (1.3-7.7) k/uL Potassium (3.5-5.1) mmol/L Carbon Dioxide (22-30) mmol/L Anion Gap (4.00-12.00) mmol/L BUN (7-17) mg/dL Creatinine (0.52-1.04) mg/dL Est GFR (CKD-EPI) (>=60) Glucose (74-99) mg/dL POC Glucose (mg/dL) 170 H 152 H (70-110) mg/dL Hemoglobin A1c (<=6.0) % C-Reactive Protein (<1.0) mg/dL Procalcitonin (0.02-0.09) ng/mL Urine Protein (Negative) Urine Glucose (UA) (Negative) 10/30/23 10/30/23 Range/Units 07:11 11:23 WBC (3.8-10.6) k/uL RBC (4.10-5.20) X 10*6/uL Hgb (12.0-15.0) g/dL Hct (37.2-46.3) % MCHC (32.0-37.0) g/dL Neutrophils # (1.3-7.7) k/uL Potassium (3.5-5.1) mmol/L Carbon Dioxide (22-30) mmol/L Anion Gap 13.20 H (4.00-12.00) mmol/L BUN (7-17) mg/dL Creatinine 1.7 H (0.52-1.04) mg/dL Est GFR (CKD-EPI) 32 L (>=60) Glucose 169 H (74-99) mg/dL POC Glucose (mg/dL) 242 H (70-110) mg/dL Hemoglobin A1c (<=6.0) % C-Reactive Protein (<1.0) mg/dL Procalcitonin (0.02-0.09) ng/mL Urine Protein (Negative) Urine Glucose (UA) (Negative) Assessment and Plan Assessment: sepsis with fever and leukocytosis. Resolved Most likely community acquired pneumonia versus chemical pneumonitis from cardiac cath procedure recent history of cardiac cath coronary artery disease h/o Asthma h/o CVA/TIA Diabetes Mellitus Hyperlipidemia Hypertension Osteoarthritis Plan: c/w ceftriaxone f/u culture results Discontinue IV fluid ID team consult cardiology consult consult her surgeon Dr. Jeter for her slipped lapband Labs and medication were reviewed.. Continue same treatment. Continue with symptomatic treatment. Resume home medication. Monitor labs and vitals. DVT and GI prophylaxis. Further recommendations as per clinical course of the patient DVT prophylaxis:xarelto GI Prophylaxis: Pepcid Prognosis is guarded
--- NOTE | 2023-10-30 14:47 | P.CONS ---
History of Present Illness - Reason for Consult Consult date: 10/30/23 Fever Requesting physician: Srinath Brown Sheet - Chief Complaint Fever x 1 day - History of Present Illness Patient is a 72-year-old female with a past medical history significant for diabetes mellitus hypertension hyperlipidemia osteoarthritis related disorder in this patient who recently did have a cardiac cath through the right wrist area however no intervention was done patient now presenting back to the hospital on 10/29/2023 for evaluation of fever nasal congestion and cough patient symptoms started the day of presentation to the hospital patient denies having any headache did have some nasal culture but no other URI symptoms patient denies having any chest pain did have a cough which is mild in intensity not bring up any sputum patient denies any nausea no vomiting no abdominal pain no diarrhea no urinary symptoms patient did have some bruising to the right wrist area but denies significant pain swelling or any drainage with the symptoms the patient was evaluated on presentation to the hospital which she did have a fever of 101.7 F patient was not tachycardic hypotensive or hypoxic. Her white count 21.5 with a left shift BUN/creatinine was mildly elevated liver isms are normal patient did have a chest x-ray cardiomegaly without acute pulmo nary process patient also have a CT of abdominal pelvis did mention patchy groundglass in the left lower lobe and potentially in the inferior lingular segment patient was started on Rocephin infectious was consulted for further management of antibiotic therapy Review of Systems Positive point and negatives has been mentioned in the HPI, complete review of systems was performed and all other systems are negative Past Medical History Past Medical History: Asthma, Chest Pain / Angina, CVA/TIA, Diabetes Mellitus, Hyperlipidemia, Hypertension, Osteoarthritis (OA), Renal Disease Additional Past Medical History / Comment(s): "I had a couple false mini strokes a few years ago" LOW VITAMIN B6 - LOW -PAST HISTORY . 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 Past Anesthesia/Blood Transfusion Reactions: Previous Problems w/ Anesthesia, Motion Sickness Additional Past Anesthesia/Blood Transfusion Reaction / Comm: "has trouble waking up with anesthesia" TAKES LONGER TO WAKE UP Past Psychological History: No Psychological Hx Reported Smoking Status: Former smoker Past Alcohol Use History: None Reported Additional Past Alcohol Use History / Comment(s): quit 50yrs ago Past Drug Use History: None Reported - Past Family History Mother Family Medical History: Cancer Brother(s) Family Medical History: Cancer Sister(s) Family Medical History: Cancer Son(s) Family Medical History: Cancer Medications and Allergies Home Medications Medication Instructions Recorded Confirmed Type Atorvastatin [Lipitor] 40 mg PO DAILY 08/05/21 10/29/23 History Fluticasone Nasal [place] [Flonase 2 spray EA NOSTRIL DAILY PRN 08/05/21 10/29/23 History Nasal [place]] Insulin Degludec [Tresiba 16 units SQ HS 08/05/21 10/29/23 History Flextouch U-100 Pen] Loratadine [Claritin] 10 mg PO DAILY 08/05/21 10/29/23 History Montelukast Sodium [Singulair] 10 mg PO HS 08/05/21 10/29/23 History Pregabalin [Lyrica] 75 mg PO HS 08/05/21 10/29/23 History Pyridoxine HCl (Vitamin B6) 100 mg PO DAILY 08/05/21 10/29/23 History [Vitamin B-6] metFORMIN HCL [Glucophage] 1,000 mg PO BID 08/05/21 10/29/23 History Acetaminophen Tab [Tylenol] 650 mg PO Q6HR PRN tab 03/08/22 10/29/23 Rx Aspirin 81 mg PO DAILY #30 tab 03/08/22 10/29/23 Rx Dapagliflozin Propanediol [Farxiga] 5 mg PO DAILY 10/20/23 10/29/23 History Ofloxacin 0.3% Ophth Soln [Ocuflox 5 drops BOTH EARS BID PRN 10/20/23 10/29/23 History Ophth Soln] Clopidogrel [Plavix] 75 mg PO DAILY #90 tablet 10/26/23 10/29/23 Rx amLODIPine [Norvasc] 5 mg PO DAILY 10/29/23 10/29/23 History ramipriL [Altace] 10 mg PO BID 10/29/23 10/29/23 History Allergies Allergy/AdvReac Type Severity Reaction Status Date / Time mold Allergy Unknown Verified 10/29/23 18:17 Sulfa (Sulfonamide Allergy Rash/Hives Verified 10/29/23 18:17 Antibiotics) Physical Exam Vitals: Vital Signs Temp Pulse Pulse Resp BP BP Pulse Ox 10/30/23 07:37 98.0 F 75 18 159/69 95 10/30/23 00:44 96.8 F L 64 14 151/77 96 10/29/23 21:02 98.4 F 67 13 121/73 94 L 10/29/23 20:23 70 16 118/70 94 L 10/29/23 19:24 99.0 F 71 16 128/64 93 L 10/29/23 18:56 99.0 F 10/29/23 18:16 100.1 F H 78 16 121/69 95 10/29/23 17:12 100.8 F H 10/29/23 15:18 101.7 F H 98 20 147/81 95 Intake and Output 10/29/23 10/30/23 10/30/23 22:59 06:59 14:59 Other: Voiding Method Toilet # Voids 3 Weight 88.451 kg GENERAL DESCRIPTION: Elderly female male lying in bed, no distress. No tachypnea or accessory muscle of respiration use. HEENT: Shows Pallor , no scleral icterus. Oral mucous membrane is dry. No pharyngeal erythema or thrush NECK: Trachea central, no thyromegaly. LUNGS: Unlabored breathing. Clear to auscultation anteriorly. No wheeze or crackle. HEART: S1, S2, regular rate and rhythm. No loud murmur ABDOMEN: Soft, no tenderness , guarding or rigidity, no organomegaly EXTREMITIES: Patient did have some bruising to the right wrist forearm and hand area no significant redness or drainage SKIN: No rash, no masses palpable. NEUROLOGICAL: The patient is awake, alert, oriented x3, mood and affect normal. Results CBC & Chem 7: 10/30/23 07:11 10/30/23 07:11 Labs: Abnormal Lab Results - Last 24 Hours (Table) 10/29/23 10/29/23 10/29/23 Range/Units 15:55 17:08 17:08 WBC 21.5 H (3.8-10.6) k/uL RBC (4.10-5.20) X 10*6/uL Hgb (12.0-15.0) g/dL Hct (37.2-46.3) % MCHC (32.0-37.0) g/dL Neutrophils # 19.0 H (1.3-7.7) k/uL Potassium 5.3 H (3.5-5.1) mmol/L Carbon Dioxide 19 L (22-30) mmol/L Anion Gap (4.00-12.00) mmol/L BUN 23 H (7-17) mg/dL Creatinine 1.56 H (0.52-1.04) mg/dL Est GFR (CKD-EPI) (>=60) Glucose 117 H (74-99) mg/dL POC Glucose (mg/dL) (70-110) mg/dL Hemoglobin A1c (<=6.0) % C-Reactive Protein (<1.0) mg/dL Procalcitonin (0.02-0.09) ng/mL Urine Protein Trace H (Negative) Urine Glucose (UA) 4+ H (Negative) 10/29/23 10/29/23 10/29/23 Range/Units 17:08 17:08 17:08 WBC (3.8-10.6) k/uL RBC (4.10-5.20) X 10*6/uL Hgb (12.0-15.0) g/dL Hct (37.2-46.3) % MCHC (32.0-37.0) g/dL Neutrophils # (1.3-7.7) k/uL Potassium (3.5-5.1) mmol/L Carbon Dioxide (22-30) mmol/L Anion Gap (4.00-12.00) mmol/L BUN (7-17) mg/dL Creatinine (0.52-1.04) mg/dL Est GFR (CKD-EPI) (>=60) Glucose (74-99) mg/dL POC Glucose (mg/dL) (70-110) mg/dL Hemoglobin A1c 10.2 H (<=6.0) % C-Reactive Protein 2.3 H (<1.0) mg/dL Procalcitonin 0.14 H (0.02-0.09) ng/mL Urine Protein (Negative) Urine Glucose (UA) (Negative) 10/29/23 10/30/23 10/30/23 Range/Units 21:08 06:16 07:11 WBC (3.8-10.6) k/uL RBC 3.79 L (4.10-5.20) X 10*6/uL Hgb 11.1 L (12.0-15.0) g/dL Hct 34.9 L (37.2-46.3) % MCHC 31.8 L (32.0-37.0) g/dL Neutrophils # (1.3-7.7) k/uL Potassium (3.5-5.1) mmol/L Carbon Dioxide (22-30) mmol/L Anion Gap (4.00-12.00) mmol/L BUN (7-17) mg/dL Creatinine (0.52-1.04) mg/dL Est GFR (CKD-EPI) (>=60) Glucose (74-99) mg/dL POC Glucose (mg/dL) 170 H 152 H (70-110) mg/dL Hemoglobin A1c (<=6.0) % C-Reactive Protein (<1.0) mg/dL Procalcitonin (0.02-0.09) ng/mL Urine Protein (Negative) Urine Glucose (UA) (Negative) 10/30/23 Range/Units 07:11 WBC (3.8-10.6) k/uL RBC (4.10-5.20) X 10*6/uL Hgb (12.0-15.0) g/dL Hct (37.2-46.3) % MCHC (32.0-37.0) g/dL Neutrophils # (1.3-7.7) k/uL Potassium (3.5-5.1) mmol/L Carbon Dioxide (22-30) mmol/L Anion Gap 13.20 H (4.00-12.00) mmol/L BUN (7-17) mg/dL Creatinine 1.7 H (0.52-1.04) mg/dL Est GFR (CKD-EPI) 32 L (>=60) Glucose 169 H (74-99) mg/dL POC Glucose (mg/dL) (70-110) mg/dL Hemoglobin A1c (<=6.0) % C-Reactive Protein (<1.0) mg/dL Procalcitonin (0.02-0.09) ng/mL Urine Protein (Negative) Urine Glucose (UA) (Negative) Assessment and Plan (1) Allergy to sulfa drugs Current Visit: Yes Status: Acute Code(s): Z88.2 - ALLERGY STATUS TO SULFONAMIDES SNOMED Code(s): 81940937 (2) Fever Current Visit: Yes Status: Acute Code(s): R50.9 - FEVER, UNSPECIFIED SNOMED Code(s): 015741590 (3) Leukocytosis Current Visit: Yes Status: Acute Code(s): D72.829 - ELEVATED WHITE BLOOD CELL COUNT, UNSPECIFIED SNOMED Code(s): 083580128 Plan: 1patient presented hospital with a fever patient did have some nasal congestion and also have a cough Patient did have a CT abdominal pelvis which did show some groundglass opacities in the left lower lobe and lingula with a possible concern for pneumonia to be the likely neurology more likely community-acquired keeping in mind response to the Rocephin patient did tested negative for influenza RSV and COVID and currently no other obvious focus of infection urine was negative no evidence of any cellulitis CT abdominal pelvis did not show any acute intra-abdominal pathology 2we will check a CRP procalcitonin try to obtain a sputum 3in view of clinical response to the Rocephin to continue while waiting for the culture to finalize We will follow on clinical condition and cultures to further adjust medication if needed Thank you for this consultation we will follow the patient along with you Dictation was produced using [employer] dictation software. please excuse any grammatical, word or spelling errors. Time with Patient: Greater than 30
--- NOTE | 2023-10-30 15:16 | P.CRDCN ---
History of Present Illness Consult date: 10/30/23 History of present illness: HISTORY OF PRESENTING ILLNESS Patient is known to Dr. Rogel. She is a 72-year-old female with PMH of CVA, asthma, type 2 diabetes, dyslipidemia, hypertension. Patient had an outpatient heart catheterization with Dr. Rogel which showed severe LAD disease but due to CKD and low threshold this intervention was not performed and was staged for future. Stent was discharged home in stable condition without any post cardiac cath complications. Patient presented to the hospital because of 1 to 2 days of increased cough and worsening shortness of breath. On admission there was concerns of possible community-acquired pneumonia based off chest x-ray. She had a leukocytosis of 21,000, creatinine 1.5, chest x-ray showing possible left lower lobe infiltrates. CT abdominal pelvis also showed possible left groundglass opacities in the lungs BP 130/76, heart rate 71 REVIEW OF SYSTEMS 14 point review of system is negative except what is mentioned above in HPI. PHYSICAL EXAMINATION Vital signs reviewed. Head: Normocephalic. Eyes: Sclerae nonicteric. Neck: Brisk carotid upstroke, no jugular venous distention. Lungs: Mild crackles bilateral lower lung garcia, poor inspiratory effort Heart: Regular rate and rhythm, S1-S2, no S3, no murmur or rub. Abdomen: Soft nontender, positive bowel sounds. Extremities: No edema, intact distal pulses. Neuro: Alert, oritented, no focal deficits. Detailed neuro exam was not performed. ASSESSMENT Sepsis with fever and leukocytosis possibly community-acquired pneumonia Coronary artery disease, severe LAD awaiting staged PCI CKD, creatinine 1.5 Type 2 diabetes, poorly controlled HbA1c 10 Dyslipidemia Hypertension Obesity PLAN Continue aspirin Plavix atorvastatin Resume amlodipine and ramipril Hold Farxiga temporarily due to concerns of sepsis and possible side effect of euglycemic DKA IV antibiotics and management of other comorbidities as per primary team Obtained an ECG At this time cardiology team will sign off. Please reconsult us in case of any question. Yonathan Baumann MD, FACC, RPVI Thank you for allowing [facility] to participate in this patient's care. Feel free to reach out in case of any followup questions. Past Medical History Past Medical History: Asthma, Chest Pain / Angina, CVA/TIA, Diabetes Mellitus, Hyperlipidemia, Hypertension, Osteoarthritis (OA), Renal Disease Additional Past Medical History / Comment(s): "I had a couple false mini strokes a few years ago" LOW VITAMIN B6 - LOW -PAST HISTORY . 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 Past Anesthesia/Blood Transfusion Reactions: Previous Problems w/ Anesthesia, Motion Sickness Additional Past Anesthesia/Blood Transfusion Reaction / Comment(s): "has trouble waking up with anesthesia" TAKES LONGER TO WAKE UP Past Psychological History: No Psychological Hx Reported Smoking Status: Former smoker Past Alcohol Use History: None Reported Additional Past Alcohol Use History / Comment(s): quit 50yrs ago Past Drug Use History: None Reported - Past Family History Mother Family Medical History: Cancer Brother(s) Family Medical History: Cancer Sister(s) Family Medical History: Cancer Son(s) Family Medical History: Cancer Medications and Allergies Home Medications Medication Instructions Recorded Confirmed Type Atorvastatin [Lipitor] 40 mg PO DAILY 08/05/21 10/29/23 History Fluticasone Nasal [place] [Flonase 2 spray EA NOSTRIL DAILY PRN 08/05/21 10/29/23 History Nasal [place]] Insulin Degludec [Tresiba 16 units SQ HS 08/05/21 10/29/23 History Flextouch U-100 Pen] Loratadine [Claritin] 10 mg PO DAILY 08/05/21 10/29/23 History Montelukast Sodium [Singulair] 10 mg PO HS 08/05/21 10/29/23 History Pregabalin [Lyrica] 75 mg PO HS 08/05/21 10/29/23 History Pyridoxine HCl (Vitamin B6) 100 mg PO DAILY 08/05/21 10/29/23 History [Vitamin B-6] metFORMIN HCL [Glucophage] 1,000 mg PO BID 08/05/21 10/29/23 History Acetaminophen Tab [Tylenol] 650 mg PO Q6HR PRN tab 03/08/22 10/29/23 Rx Aspirin 81 mg PO DAILY #30 tab 03/08/22 10/29/23 Rx Dapagliflozin Propanediol [Farxiga] 5 mg PO DAILY 10/20/23 10/29/23 History Ofloxacin 0.3% Ophth Soln [Ocuflox 5 drops BOTH EARS BID PRN 10/20/23 10/29/23 History Ophth Soln] Clopidogrel [Plavix] 75 mg PO DAILY #90 tablet 10/26/23 10/29/23 Rx amLODIPine [Norvasc] 5 mg PO DAILY 10/29/23 10/29/23 History ramipriL [Altace] 10 mg PO BID 10/29/23 10/29/23 History Allergies Allergy/AdvReac Type Severity Reaction Status Date / Time mold Allergy Unknown Verified 10/29/23 18:17 Sulfa (Sulfonamide Allergy Rash/Hives Verified 10/29/23 18:17 Antibiotics) Physical Exam Vitals: Vital Signs Temp Pulse Pulse Resp BP BP Pulse Ox 10/30/23 13:05 98.4 F 71 17 130/76 94 L 10/30/23 07:37 98.0 F 75 18 159/69 95 10/30/23 00:44 96.8 F L 64 14 151/77 96 10/29/23 21:02 98.4 F 67 13 121/73 94 L 10/29/23 20:23 70 16 118/70 94 L 10/29/23 19:24 99.0 F 71 16 128/64 93 L 10/29/23 18:56 99.0 F 10/29/23 18:16 100.1 F H 78 16 121/69 95 10/29/23 17:12 100.8 F H 10/29/23 15:18 101.7 F H 98 20 147/81 95 Intake and Output 10/30/23 10/30/23 10/30/23 06:59 14:59 22:59 Other: Voiding Method Toilet # Voids 3 Results 10/30/23 07:11 10/30/23 07:11 Cardiac Enzymes 10/29/23 Range/Units 17:08 AST 22 (14-36) U/L CBC 10/29/23 10/30/23 Range/Units 17:08 07:11 WBC 21.5 H 9.72 (3.8-10.6) k/uL RBC 3.88 3.79 L (3.80-5.40) m/uL Hgb 12.0 11.1 L (11.4-16.0) gm/dL Hct 35.2 34.9 L (34.0-46.0) % Plt Count 268 260 (150-450) k/uL Comprehensive Metabolic Panel 10/29/23 10/30/23 Range/Units 17:08 07:11 Sodium 137 140 (137-145) mmol/L Potassium 5.3 H 5.3 (3.5-5.1) mmol/L Chloride 107 105 (98-107) mmol/L Carbon Dioxide 19 L 21.8 (22-30) mmol/L BUN 23 H 25.3 (7-17) mg/dL Creatinine 1.56 H 1.7 H (0.52-1.04) mg/dL Glucose 117 H 169 H (74-99) mg/dL Calcium 9.7 9.5 (8.4-10.2) mg/dL AST 22 (14-36) U/L ALT 19 (4-34) U/L Alkaline Phosphatase 89 (38-126) U/L Total Protein 7.7 (6.3-8.2) g/dL Albumin 4.5 (3.5-5.0) g/dL Current Medications Generic Name Dose Route Start Last Admin Trade Name Freq PRN Reason Stop Dose Admin Acetaminophen 650 mg 10/29/23 17:57 Acetaminophen Tab 325 Mg Tab PO Q6HR PRN Mild Pain or Fever > 100.5 Amlodipine Besylate 5 mg 10/30/23 09:00 10/30/23 08:39 Amlodipine 5 Mg Tab PO 5 mg DAILY CAROLIN Administration Aspirin 81 mg 10/30/23 09:00 10/30/23 08:39 Aspirin 81 Mg PO 81 mg DAILY CAROLIN Administration Atorvastatin Calcium 40 mg 10/30/23 09:00 10/30/23 08:39 Atorvastatin 40 Mg Tab PO 40 mg DAILY CAROLIN Administration Clopidogrel Bisulfate 75 mg 10/30/23 09:00 10/30/23 08:39 Clopidogrel 75 Mg Tab PO 75 mg DAILY CAROLIN Administration Dextrose/Water 25 ml 10/29/23 19:13 Dextrose 50% Syringe 50 Ml IVP PER PROTOCOL PRN Hypoglycemia Protocol Dextrose/Water 50 ml 10/29/23 19:13 Dextrose 50% Syringe 50 Ml IVP PER PROTOCOL PRN Hypoglycemia Protocol Fluticasone Propionate 2 spray 10/29/23 19:12 Fluticasone 50mcg/[place] Nasal 16gm EA NOSTRIL DAILY PRN allergies Sodium Chloride 1,000 mls @ 75 mls/hr 10/29/23 18:00 10/30/23 08:39 Saline 0.9% IV 75 mls/hr .[id number] CAROLIN Administration Ceftriaxone Sodium 1 gm/ 50 mls @ 100 mls/hr 10/30/23 09:00 10/30/23 08:38 Sodium Chloride IVPB 100 mls/hr Q24HR CAROLIN Administration Protocol Insulin Aspart 0 unit 10/29/23 21:00 10/30/23 12:51 Insulin Aspart (Novolog) 100 Unit/Ml Vial SQ 2 unit ACHS CAROLIN Administration Protocol Insulin Detemir 16 unit 10/31/23 07:00 Insulin Detemir (Levemir) 100 Unit/Ml Syr SQ DAILY@0700 CAROLIN Montelukast Sodium 10 mg 10/29/23 21:00 10/29/23 22:09 Montelukast 10 Mg Tab PO 10 mg HS CAROLIN Administration Naloxone HCl 0.2 mg 10/29/23 17:57 Naloxone 0.4 Mg/Ml 1 Ml Vial IV Q2M PRN Opioid Reversal Pregabalin 75 mg 10/29/23 21:00 10/29/23 22:09 Pregabalin 75 Mg Cap PO 75 mg HS CAROLIN Administration Intake and Output 10/30/23 10/30/23 10/30/23 06:59 14:59 22:59 Other: Voiding Method Toilet # Voids 3 10/30/23 07:11 10/30/23 07:11
[2023-10-30 16:29] LABS: Glucose,Whole Blood 205 mg/dL (70-110)
[2023-10-30 20:58] LABS: Glucose,Whole Blood 272 mg/dL (70-110)
[2023-10-31 06:53] LABS: Glucose,Whole Blood 235 mg/dL (70-110)
[2023-10-31 08:33] LABS: Basophils # (A) 0.05 X 10*3/uL (0.00-0.10); Basophils % (A) 0.7 %; Eosinophils % (A) 4.4 %; HCT 33.2 % (37.2-46.3); HGB 10.8 g/dL (12.0-15.0); Lymphocytes # (A) 1.74 X 10*3/uL (0.90-5.00); Lymphocytes % (A) 25.4 %; MCH 30.1 pg (27.0-32.0); MCHC 32.5 g/dL (32.0-37.0); MCV 92.5 FL (80.0-97.0); Mean Platelet Volume 12.2 FL (9.5-12.2); Monocytes # (A) 0.59 X 10*3/uL (0.20-1.00); Monocytes % (A) 8.6 %; NRBC Per 100 WBC 0 X 10*3/uL (0.00-0.01); Neutrophils # (A) 4.16 X 10*3/uL (1.80-7.70); Neutrophils % (A) 60.6 %; Platelet Count 251 X 10*3/uL (140-440); RBC 3.59 X 10*6/uL (4.10-5.20); RDW 12.6 % (11.5-14.5); WBC 6.86 X 10*3/uL (4.50-10.00)
[2023-10-31 08:55] LABS: ALT 12 U/L (8-44); AST 13 U/L (13-35); Alkaline Phosphatase 72 U/L (41-126); BUN/Creat Ratio 15.72 Ratio (12.00-20.00); Blood Urea Nitrogen 28.3 mg/dL (9.0-27.0); Calcium 9.5 mg/dL (8.7-10.3); Carbon Dioxide 21.9 mmol/L (21.6-31.8); Chloride 105 mmol/L (96-109); Globulin 2.5 g/dL (1.6-3.3); Glucose 239 mg/dL (70-110); Potassium 5.2 mmol/L (3.5-5.5); Sodium 139 mmol/L (135-145); Total Bilirubin 0.3 mg/dL (0.3-1.2); Total Protein 6.5 g/dL (6.2-8.2)
[2023-10-31] MEDS: INSULIN DETEMIR (LEVEMIR) 100 UNIT/ML SYR SQ SCH (09:08)
--- NOTE | 2023-10-31 11:32 | P.PN ---
Subjective Progress Note Date: 10/31/23 Principal diagnosis: Reason for follow-up is fever possible pneumonia Patient is a 72-year-old female with a past medical history significant for diabetes mellitus hypertension hyperlipidemia osteoarthritis, recently did have a cardiac cath through the right wrist area however no intervention was done, presented to hospital with a fever did have a mild cough chest x-ray was negative CT abdominal pelvis did not mention patchy groundglass in the left lower lobe and did have mild elevated procalcitonin concerning for pneumonia. On today's evaluation that is 10/31/2023, the patient did have resolution of her fever and is afebrile, the patient is on room air and breathing comfortably, the Pt denies having any chest pain did have a cough though decreased in intensity not bring up any sputum, the patient denies having any abdominal pain no vomiting or any diarrhea has been reported by the nursing staff. Patient white count normalized to 6.86, creatinine is 1.8, procalcitonin 0.18 blood cultures pending Objective - Vital Signs Vital signs: Vital Signs Temp 98.0 F 10/31/23 08:00 Pulse 78 10/31/23 09:45 Resp 17 10/31/23 09:45 BP 155/95 10/31/23 08:00 Pulse Ox 95 10/31/23 08:00 FiO2 Intake & Output 10/30/23 10/31/23 10/31/23 18:59 06:59 18:59 Other: Voiding Method Toilet Toilet # Voids 2 4 - Exam GENERAL DESCRIPTION: An elderly female lying in bed in no distress RESPIRATORY SYSTEM: Unlabored breathing , decreased breath sounds at bases HEART: S1 S2 regular rate and rhythm , ABDOMEN: Soft , no tenderness EXTREMITIES: Right wrist did have some bruising but no redness - Labs CBC & Chem 7: 10/31/23 05:43 10/31/23 05:43 Labs: Abnormal Lab Results - Last 24 Hours (Table) 10/30/23 10/30/23 10/30/23 Range/Units 07:11 11:23 16:27 RBC (4.10-5.20) X 10*6/uL Hgb (12.0-15.0) g/dL Hct (37.2-46.3) % Anion Gap 13.20 H (4.00-12.00) mmol/L BUN (9.0-27.0) mg/dL Creatinine 1.7 H (0.6-1.5) mg/dL Est GFR (CKD-EPI) 32 L (>=60) Glucose 169 H (70-110) mg/dL POC Glucose (mg/dL) 242 H 205 H (70-110) mg/dL Procalcitonin (0.02-0.09) ng/mL 10/30/23 10/31/23 10/31/23 Range/Units 20:57 05:43 05:43 RBC 3.59 L (4.10-5.20) X 10*6/uL Hgb 10.8 L (12.0-15.0) g/dL Hct 33.2 L (37.2-46.3) % Anion Gap (4.00-12.00) mmol/L BUN (9.0-27.0) mg/dL Creatinine (0.6-1.5) mg/dL Est GFR (CKD-EPI) (>=60) Glucose (70-110) mg/dL POC Glucose (mg/dL) 272 H (70-110) mg/dL Procalcitonin 0.18 H (0.02-0.09) ng/mL 10/31/23 10/31/23 Range/Units 05:43 06:46 RBC (4.10-5.20) X 10*6/uL Hgb (12.0-15.0) g/dL Hct (37.2-46.3) % Anion Gap 12.10 H (4.00-12.00) mmol/L BUN 28.3 H (9.0-27.0) mg/dL Creatinine 1.8 H (0.6-1.5) mg/dL Est GFR (CKD-EPI) 30 L (>=60) Glucose 239 H (70-110) mg/dL POC Glucose (mg/dL) 235 H (70-110) mg/dL Procalcitonin (0.02-0.09) ng/mL Microbiology - Last 24 Hours (Table) 10/29/23 17:05 Blood Culture - Preliminary Blood 10/29/23 16:50 Blood Culture - Preliminary Blood Assessment and Plan (1) Allergy to sulfa drugs Current Visit: Yes Status: Acute Code(s): Z88.2 - ALLERGY STATUS TO SULFONAMIDES SNOMED Code(s): 17158077 (2) Fever Current Visit: Yes Status: Acute Code(s): R50.9 - FEVER, UNSPECIFIED SNOMED Code(s): 059747649 (3) Leukocytosis Current Visit: Yes Status: Acute Code(s): D72.829 - ELEVATED WHITE BLOOD CELL COUNT, UNSPECIFIED SNOMED Code(s): 095472931 Plan: 1patient presented hospital with a fever patient did have some nasal congestion and also have a cough Patient did have a CT abdominal pelvis which did show some groundglass opacities in the left lower lobe and lingula with a possible concern for pneumonia to be the likely neurology more likely community-acquired keeping in mind response to the Rocephin patient did tested negative for influenza RSV and COVID and currently no other obvious focus of infection urine was negative no evidence of any cellulitis CT abdominal pelvis did not show any acute intra- abdominal pathology 2patient did have mild elevated procalcitonin 3patient did have resolution of her fever and white count has normalized we will continue patient on Rocephin noticed to have slight worsening of the kidney function that need to be monitored closely Dictation was produced using [email or web address] dictation software. please excuse any grammatical, word or spelling errors. Time with Patient: Less than 30
[2023-10-31 11:57] LABS: Glucose,Whole Blood 395 mg/dL (70-110)
--- NOTE | 2023-10-31 15:13 | P.GSCN ---
History of Present Illness Consult date: 10/31/23 History of present illness: CHIEF COMPLAINT: Chills HISTORY OF PRESENT ILLNESS: This is a 72-year-old female who presented to hospital with cold chills and a mild cough. She had recent heart catheterization and was told to come back to the hospital if she was not feeling well. Patient denies any abdominal pain. Denies any nausea or vomiting. Reports she is having regular bowel movements. She did have lap band surgery in 2007. CT scan abdomen pelvis on admission had reported gastric lap band noted to have slippage of the fundus above the level of the Lap-Band. Surgical service consulted regarding CT scan findings of lap band. Patient reports that she is unsure if there is still fluid present in the Lap-Band. [place] year [place] a half after the lap band surgery so she has not had any further follow-up on it. Patient is on Plavix for coronary artery disease. She is awaiting to have PCI with cardiology service outpatient. Cardiology has signed off. Patient did have a fever on admission. PAST MEDICAL HISTORY: Asthma, Chest Pain / Angina, TIAs, Diabetes Mellitus, Hyperlipidemia, Hypertension, Osteoarthritis (OA), Renal Disease, PAST SURGICAL HISTORY: Heart catheterization, tubal ligation MEDICATIONS: See below ALLERGIES: See below SOCIAL HISTORY: No illicit drug use. REVIEW OF SYSTEMS: CONSTITUTIONAL: Denies fever or chills. HEENT: Denies blurred vision, vision changes, or eye pain. Denies hemoptysis CARDIOVASCULAR: Denies chest pain or pressure. RESPIRATORY: No shortness of breath. GASTROINTESTINAL: See HPI for pertinent findings HEMATOLOGIC: Denies bleeding disorders. GENITOURINARY: Denies any blood in urine or increased urinary frequency. SKIN: Denies pruitis. Denies rash. PHYSICAL EXAM: VITAL SIGNS: Reviewed GENERAL: Well-developed in no acute distress. HEENT: No sclera icterus. Extraocular movements grossly intact. Moist buccal mucosa. Head is atraumatic, normocephalic. No nasal drainage. ABDOMEN: Soft. Nondistended. Nontender. Lap-Band port palpable left-sided abdomen NEUROLOGIC: Alert and oriented. Cranial nerves II through XII grossly intact. LABORATORY DATA: WBC 6.86 Hgb 10.8 platelets 251 Sodium 139 potassium 4.2 creatinine 1.8 IMAGING: CT scan abdomen pelvis reports gastric lap band is noted with some slippage of the fundus above the level at the Lap-Band. Prominent oral contrast distending the partially included distal thoracic esophagus and fundus above the gastric lap band. No evidence for bowel obstruction. No pneumoperitoneum. Curvilinear changes at the lung bases with subtle areas of patchy groundglass in the left lower lobe and potentially in the inferior lingula segments. ASSESSMENT: 1. Slippage of the Lap-Band noted on CT scan. No abdominal pain. No vomiting. 2. Possible pneumonia with fever PLAN: -No surgical intervention planned -Continue antibiotics per infectious disease for possible pneumonia -Continue heart healthy diet Physician Battery Installer note has been reviewed by physician. Signing provider agrees with the documented findings, assessment, and plan of care. Past Medical History Past Medical History: Asthma, Chest Pain / Angina, CVA/TIA, Diabetes Mellitus, Hyperlipidemia, Hypertension, Osteoarthritis (OA), Renal Disease Additional Past Medical History / Comment(s): "I had a couple false mini strokes a few years ago" LOW VITAMIN B6 - LOW -PAST HISTORY . 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 Past Anesthesia/Blood Transfusion Reactions: Previous Problems w/ Anesthesia, Motion Sickness Additional Past Anesthesia/Blood Transfusion Reaction / Comm: "has trouble waking up with anesthesia" TAKES LONGER TO WAKE UP Past Psychological History: No Psychological Hx Reported Smoking Status: Former smoker Past Alcohol Use History: None Reported Additional Past Alcohol Use History / Comment(s): quit 50yrs ago Past Drug Use History: None Reported - Past Family History Mother Family Medical History: Cancer Brother(s) Family Medical History: Cancer Sister(s) Family Medical History: Cancer Son(s) Family Medical History: Cancer Medications and Allergies Home Medications Medication Instructions Recorded Confirmed Type Atorvastatin [Lipitor] 40 mg PO DAILY 08/05/21 10/29/23 History Fluticasone Nasal [place] [Flonase 2 spray EA NOSTRIL DAILY PRN 08/05/21 10/29/23 History Nasal [place]] Insulin Degludec [Tresiba 16 units SQ HS 08/05/21 10/29/23 History Flextouch U-100 Pen] Loratadine [Claritin] 10 mg PO DAILY 08/05/21 10/29/23 History Montelukast Sodium [Singulair] 10 mg PO HS 08/05/21 10/29/23 History Pregabalin [Lyrica] 75 mg PO HS 08/05/21 10/29/23 History Pyridoxine HCl (Vitamin B6) 100 mg PO DAILY 08/05/21 10/29/23 History [Vitamin B-6] metFORMIN HCL [Glucophage] 1,000 mg PO BID 08/05/21 10/29/23 History Acetaminophen Tab [Tylenol] 650 mg PO Q6HR PRN tab 03/08/22 10/29/23 Rx Aspirin 81 mg PO DAILY #30 tab 03/08/22 10/29/23 Rx Dapagliflozin Propanediol [Farxiga] 5 mg PO DAILY 10/20/23 10/29/23 History Ofloxacin 0.3% Ophth Soln [Ocuflox 5 drops BOTH EARS BID PRN 10/20/23 10/29/23 History Ophth Soln] Clopidogrel [Plavix] 75 mg PO DAILY #90 tablet 10/26/23 10/29/23 Rx amLODIPine [Norvasc] 5 mg PO DAILY 10/29/23 10/29/23 History ramipriL [Altace] 10 mg PO BID 10/29/23 10/29/23 History Allergies Allergy/AdvReac Type Severity Reaction Status Date / Time mold Allergy Unknown Verified 10/29/23 18:17 Sulfa (Sulfonamide Allergy Rash/Hives Verified 10/29/23 18:17 Antibiotics) Surgical - Exam Vital Signs Temp Pulse Resp BP Pulse Ox 101.7 F H 98 20 147/81 95 10/29/23 15:18 10/29/23 15:18 10/29/23 15:18 10/29/23 15:18 10/29/23 15:18 Results - Labs 10/31/23 05:43 10/31/23 05:43 Abnormal Lab Results - Last 24 Hours (Table) 10/30/23 10/30/23 10/31/23 Range/Units 16:27 20:57 05:43 RBC (4.10-5.20) X 10*6/uL Hgb (12.0-15.0) g/dL Hct (37.2-46.3) % Anion Gap (4.00-12.00) mmol/L BUN (9.0-27.0) mg/dL Creatinine (0.6-1.5) mg/dL Est GFR (CKD-EPI) (>=60) Glucose (70-110) mg/dL POC Glucose (mg/dL) 205 H 272 H (70-110) mg/dL Procalcitonin 0.18 H (0.02-0.09) ng/mL 10/31/23 10/31/23 10/31/23 Range/Units 05:43 05:43 06:46 RBC 3.59 L (4.10-5.20) X 10*6/uL Hgb 10.8 L (12.0-15.0) g/dL Hct 33.2 L (37.2-46.3) % Anion Gap 12.10 H (4.00-12.00) mmol/L BUN 28.3 H (9.0-27.0) mg/dL Creatinine 1.8 H (0.6-1.5) mg/dL Est GFR (CKD-EPI) 30 L (>=60) Glucose 239 H (70-110) mg/dL POC Glucose (mg/dL) 235 H (70-110) mg/dL Procalcitonin (0.02-0.09) ng/mL 10/31/23 Range/Units 11:55 RBC (4.10-5.20) X 10*6/uL Hgb (12.0-15.0) g/dL Hct (37.2-46.3) % Anion Gap (4.00-12.00) mmol/L BUN (9.0-27.0) mg/dL Creatinine (0.6-1.5) mg/dL Est GFR (CKD-EPI) (>=60) Glucose (70-110) mg/dL POC Glucose (mg/dL) 395 H (70-110) mg/dL Procalcitonin (0.02-0.09) ng/mL Microbiology - Last 24 Hours (Table) 10/29/23 17:05 Blood Culture - Preliminary Blood 10/29/23 16:50 Blood Culture - Preliminary Blood Diabetes panel 10/31/23 Range/Units 05:43 Sodium 139 (135-145) mmol/L Potassium 5.2 (3.5-5.5) mmol/L Chloride 105 (96-109) mmol/L Carbon Dioxide 21.9 (21.6-31.8) mmol/L BUN 28.3 H (9.0-27.0) mg/dL Creatinine 1.8 H (0.6-1.5) mg/dL Glucose 239 H (70-110) mg/dL Calcium 9.5 (8.7-10.3) mg/dL AST 13 (13-35) U/L ALT 12 (8-44) U/L Alkaline Phosphatase 72 (41-126) U/L Total Protein 6.5 (6.2-8.2) g/dL Albumin 4.0 (3.8-4.9) g/dL Calcium panel 10/31/23 Range/Units 05:43 Calcium 9.5 (8.7-10.3) mg/dL Albumin 4.0 (3.8-4.9) g/dL Pituitary panel 10/31/23 Range/Units 05:43 Sodium 139 (135-145) mmol/L Potassium 5.2 (3.5-5.5) mmol/L Chloride 105 (96-109) mmol/L Carbon Dioxide 21.9 (21.6-31.8) mmol/L BUN 28.3 H (9.0-27.0) mg/dL Creatinine 1.8 H (0.6-1.5) mg/dL Glucose 239 H (70-110) mg/dL Calcium 9.5 (8.7-10.3) mg/dL Adrenal panel 10/31/23 Range/Units 05:43 Sodium 139 (135-145) mmol/L Potassium 5.2 (3.5-5.5) mmol/L Chloride 105 (96-109) mmol/L Carbon Dioxide 21.9 (21.6-31.8) mmol/L BUN 28.3 H (9.0-27.0) mg/dL Creatinine 1.8 H (0.6-1.5) mg/dL Glucose 239 H (70-110) mg/dL Calcium 9.5 (8.7-10.3) mg/dL Total Bilirubin 0.3 (0.3-1.2) mg/dL AST 13 (13-35) U/L ALT 12 (8-44) U/L Alkaline Phosphatase 72 (41-126) U/L Total Protein 6.5 (6.2-8.2) g/dL Albumin 4.0 (3.8-4.9) g/dL
[2023-10-31 16:32] VITALS: BMI 31.4
[2023-10-31 17:10] LABS: Glucose,Whole Blood 226 mg/dL (70-110)
[2023-10-31 20:47] LABS: Glucose,Whole Blood 328 mg/dL (70-110)
[2023-11-01 06:08] LABS: Glucose,Whole Blood 211 mg/dL (70-110)
[2023-11-01 07:47] VITALS: PULSE 81; RESP 17
[2023-11-01] MEDS: CALCIUM CARBONATE 500 MG CHEWABLE PO PRN (11:45)
[2023-11-01 11:49] LABS: Glucose,Whole Blood 214 mg/dL (70-110)
--- NOTE | 2023-11-01 12:10 | P.PN ---
Subjective Progress Note Date: 11/01/23 CHIEF COMPLAINT: Chills HISTORY OF PRESENT ILLNESS: Patient denies any abdominal pain. Denies any nausea or vomiting. Tolerating diet. Afebrile. Patient on antibiotics for possible pneumonia. PHYSICAL EXAM: VITAL SIGNS: Reviewed. GENERAL: Well-developed in no acute distress. ABDOMEN: Soft. Nondistended. Nontender. NEUROLOGIC: Alert and oriented. Cranial nerves II through XII grossly intact. ASSESSMENT: 1. Slippage of the Lap-Band noted on CT scan. No abdominal pain. No vomiting. 2. Possible pneumonia with fever PLAN: -Continue regular diet -No surgical intervention planned Physician Executive Legal Secretary note has been reviewed by physician. Signing provider agrees with the documented findings, assessment, and plan of care. Objective - Vital Signs Vital signs: Vital Signs Temp 97.9 F 11/01/23 07:10 Pulse 81 11/01/23 07:10 Resp 17 11/01/23 07:10 BP 127/71 11/01/23 07:10 Pulse Ox 95 11/01/23 07:10 FiO2 Intake & Output 10/31/23 11/01/23 11/01/23 18:59 06:59 18:59 Weight 88.451 kg Other: Voiding Method Toilet Toilet Toilet # Voids 5 3 - Labs CBC & Chem 7: 10/31/23 05:43 10/31/23 05:43 Labs: Abnormal Lab Results - Last 24 Hours (Table) 10/31/23 10/31/23 11/01/23 Range/Units 17:08 20:45 06:07 POC Glucose (mg/dL) 226 H 328 H 211 H (70-110) mg/dL 11/01/23 Range/Units 11:48 POC Glucose (mg/dL) 214 H (70-110) mg/dL Microbiology - Last 24 Hours (Table) 10/29/23 17:05 Blood Culture - Preliminary Blood 10/29/23 16:50 Blood Culture - Preliminary Blood
--- NOTE | 2023-11-01 12:14 | P.PN ---
Progress Note - Text Progress Note Date: 11/01/23 The patient had her Lap-Band emptied. 8 cc was removed from her band. Patient was able drink water without difficulty. She will follow-up in the bariatric office next week.
--- NOTE | 2023-11-01 12:36 | P.PN ---
Subjective Progress Note Date: 11/01/23 Principal diagnosis: Reason for follow-up is fever possible pneumonia Patient is a 72-year-old female with a past medical history significant for diabetes mellitus hypertension hyperlipidemia osteoarthritis, recently did have a cardiac cath through the right wrist area however no intervention was done, presented to hospital with a fever did have a mild cough chest x-ray was negative CT abdominal pelvis did not mention patchy groundglass in the left lower lobe and did have mild elevated procalcitonin concerning for pneumonia. On today's evaluation that is 11/01/2023, Patient is afebrile , patient is currently on room air and denies having any shortness of breath, the patient denies any chest pain did have occasional cough not bring up any sputum, the patient denies any nausea vomiting did not have any abdominal pain and no diarrhea. No new labs has been obtained today cultures negative so far Objective - Vital Signs Vital signs: Vital Signs Temp 97.9 F 11/01/23 07:10 Pulse 81 11/01/23 07:10 Resp 17 11/01/23 07:10 BP 127/71 11/01/23 07:10 Pulse Ox 95 11/01/23 07:10 FiO2 Intake & Output 10/31/23 11/01/23 11/01/23 18:59 06:59 18:59 Weight 88.451 kg Other: Voiding Method Toilet Toilet # Voids 5 3 - Exam GENERAL DESCRIPTION: An elderly female lying in bed in no distress RESPIRATORY SYSTEM: Unlabored breathing , decreased breath sounds at bases HEART: S1 S2 regular rate and rhythm , ABDOMEN: Soft , no tenderness EXTREMITIES: Right wrist did have some bruising but no redness - Labs CBC & Chem 7: 10/31/23 05:43 10/31/23 05:43 Labs: Abnormal Lab Results - Last 24 Hours (Table) 10/31/23 10/31/23 10/31/23 Range/Units 11:55 17:08 20:45 POC Glucose (mg/dL) 395 H 226 H 328 H (70-110) mg/dL 11/01/23 Range/Units 06:07 POC Glucose (mg/dL) 211 H (70-110) mg/dL Microbiology - Last 24 Hours (Table) 10/29/23 17:05 Blood Culture - Preliminary Blood 10/29/23 16:50 Blood Culture - Preliminary Blood Assessment and Plan (1) Allergy to sulfa drugs Current Visit: Yes Status: Acute Code(s): Z88.2 - ALLERGY STATUS TO SULFONAMIDES SNOMED Code(s): 46469564 (2) Fever Current Visit: Yes Status: Acute Code(s): R50.9 - FEVER, UNSPECIFIED SNOMED Code(s): 468990603 (3) Leukocytosis Current Visit: Yes Status: Acute Code(s): D72.829 - ELEVATED WHITE BLOOD CELL COUNT, UNSPECIFIED SNOMED Code(s): 853361580 Plan: 1patient presented hospital with a fever patient did have some nasal congestion and also have a cough Patient did have a CT abdominal pelvis which did show some groundglass opacities in the left lower lobe and lingula with a possible concern for pneumonia to be the likely neurology more likely community-acquired keeping in mind response to the Rocephin patient did tested negative for influenza RSV and COVID and currently no other obvious focus of infection urine was negative no evidence of any cellulitis CT abdominal pelvis did not show any acute intra- abdominal pathology 2patient did have mild elevated procalcitonin, blood cultures have been negative 3patient did have resolution of her fever and white count has normalized, consider short course of oral Ceftin on discharge Dictation was produced using [employer] dictation software. please excuse any grammatical, word or spelling errors. Time with Patient: Less than 30
[2023-11-01 14:03] VITALS: BP 148/73; TEMP 97.6
--- NOTE | 2023-11-01 14:05 | P.DS ---
Providers Date of admission: 10/29/23 17:57 Expected date of discharge: 11/01/23 Attending physician: Srinath Spencer MD Consults: 10/29/23 17:57 Consult Physician Routine Consulting Provider: Elana De La Torre Consult Reason/Comments: Fever Do you want consulting provider notified?: Yes 10/30/23 14:32 Consult Physician Routine Consulting Provider: Nathan Jeter Consult Reason/Comments: abn ct for lapband Do you want consulting provider notified?: Yes, Notify in am Primary care physician: [facility] Course: 72 yo female with psat medical history of multiple medical problems including Asthma, CVA/TIA, Diabetes Mellitus, Hyperlipidemia, Hypertension, Osteoarthritis pt had cardiac cath with about 3 days ago , stent was not placed but planned to be inserted in two weeks as per pt started to have fever today she was complaining from pain on her left leg about 10/10 but now completely resovled with no sequelae per pt , and pain in her left upper exterimity which is also resolved now she denies chest pain, Patient denies any dyspnea or change in urine or bowel habits. No neurological complaints yesterday she has 5 bouts of loose stool but again it is stopped she denies smoking, no alcohol ,no illicit drugs vitals are stable currently , she had fever on admission 101[place] [address], rest of cbc, bmp and lft are unremarkable creatinine is 1.5 which is slightly above baseline of 1.2-1.4 with mild hyperkalemia cxr is negative for acute process ekg: no significant stt changes ua is negative viruses are undetected incluidng influenza, covid and RSV viruses blood culture is ordered andp ending currently pt received ceftriaxone in emergency room which will be continued 10/30/2023 Patient with no more symptoms today She has CT of the abdomen yesterday which showing basal pneumonia which is most likely the source of her infection. No fever or leukocytosis today with WBCs back to normal at 9. Also she has labs and slipped stomach above her gastric lap band, her surgeon is Dr. Beverly we are going to consult from tomorrow No cardiac issue Plan discussed with the patient and she is agreeable 11/01 DR MARIE ASSUMED CARE Patient was seen by general surgery cleared for discharge, patient was seen by infectious disease cleared for discharge transition to oral antibiotic. Vitals reviewed will follow-up with bariatric center outpatient . PHYSICAL EXAMINATION: GENERAL: The patient is alert and oriented x3, not in any acute distress. Well developed, well nourished. HEENT: Pupils are round and equally reacting to light. EOMI. No scleral icterus. No conjunctival pallor. Normocephalic, atraumatic. No pharyngeal erythema. No thyromegaly. CARDIOVASCULAR: S1 and S2 present. No murmurs, rubs, or gallops. PULMONARY: Chest is clear to auscultation, no wheezing or crackles. ABDOMEN: Soft, nontender, nondistended, normoactive bowel sounds. No palpable organomegaly. MUSCULOSKELETAL: No joint swelling or deformity. EXTREMITIES: No cyanosis, clubbing, or pedal edema. NEUROLOGICAL: Gross neurological examination did not reveal any focal deficits. SKIN: No rashes. Assessment and plan Community-acquired pneumonia Coronary artery disease with history of severe LAD lesion Diabetes mellitus type 2 Hypertension Dyslipidemia In regards to coronary artery disease continue patient on aspirin, Plavix, Lipitor In regards to pneumonia patient received IV Rocephin transition to oral Ceftin additional 5 days provided In regards to slippage of Lap-Band noted on CT scan, seen by surgery diet advanced cleared for discharge Patient Condition at Discharge: Stable Plan - Discharge Summary Discharge Rx Participant: Yes New Discharge Prescriptions: New cefUROXime axetiL [Ceftin] 500 mg PO BID 5 Days #10 tab Continue Loratadine [Claritin] 10 mg PO DAILY Pregabalin [Lyrica] 75 mg PO HS metFORMIN HCL [Glucophage] 1,000 mg PO BID Pyridoxine HCl (Vitamin B6) [Vitamin B-6] 100 mg PO DAILY Fluticasone Nasal [place] [Flonase Nasal [place]] 2 spray EA NOSTRIL DAILY PRN PRN Reason: allergies Aspirin 81 mg PO DAILY #30 tab amLODIPine [Norvasc] 5 mg PO DAILY ramipriL [Altace] 10 mg PO BID Montelukast Sodium [Singulair] 10 mg PO HS Atorvastatin [Lipitor] 40 mg PO DAILY Insulin Degludec [Tresiba Flextouch U-100 Pen] 16 units SQ HS Acetaminophen Tab [Tylenol] 650 mg PO Q6HR PRN tab PRN Reason: Mild Pain Or Fever > 100.5 Ofloxacin 0.3% Ophth Soln [Ocuflox Ophth Soln] 5 drops BOTH EARS BID PRN PRN Reason: Ear Pain Dapagliflozin Propanediol [Farxiga] 5 mg PO DAILY Clopidogrel [Plavix] 75 mg PO DAILY #90 tablet Discharge Medication List Atorvastatin [Lipitor] 40 mg PO DAILY 08/05/21 [History] Fluticasone Nasal [place] [Flonase Nasal [place]] 2 spray EA NOSTRIL DAILY PRN 08/05/21 [History] Insulin Degludec [Tresiba Flextouch U-100 Pen] 16 units SQ HS 08/05/21 [History] Loratadine [Claritin] 10 mg PO DAILY 08/05/21 [History] Montelukast Sodium [Singulair] 10 mg PO HS 08/05/21 [History] Pregabalin [Lyrica] 75 mg PO HS 08/05/21 [History] Pyridoxine HCl (Vitamin B6) [Vitamin B-6] 100 mg PO DAILY 08/05/21 [History] metFORMIN HCL [Glucophage] 1,000 mg PO BID 08/05/21 [History] Acetaminophen Tab [Tylenol] 650 mg PO Q6HR PRN tab 03/08/22 [Rx] Aspirin 81 mg PO DAILY #30 tab 03/08/22 [Rx] Dapagliflozin Propanediol [Farxiga] 5 mg PO DAILY 10/20/23 [History] Ofloxacin 0.3% Ophth Soln [Ocuflox Ophth Soln] 5 drops BOTH EARS BID PRN 10/20/23 [History] Clopidogrel [Plavix] 75 mg PO DAILY #90 tablet 10/26/23 [Rx] amLODIPine [Norvasc] 5 mg PO DAILY 10/29/23 [History] ramipriL [Altace] 10 mg PO BID 10/29/23 [History] cefUROXime axetiL [Ceftin] 500 mg PO BID 5 Days #10 tab 11/01/23 [Rx] Follow up Appointment(s)/Referral(s): Cathy Proctor MD [Primary Care Provider] - 1-2 days [place], [place] [NON-STAFF] - 1 Week Discharge Disposition: HOME SELF-CARE
== END 2023-11-01 14:50 | disposition home or self-care (01) | DRG 871 ==
LOC: EC 14:58 → 5NMEDONC 17:57 → 4SSUR 19:57
PROVIDERS: ADMIT Internal Medicine; ATTEND Internal Medicine
DX: A41.9 Sepsis, unspecified organism (principal); J18.9 Pneumonia, unspecified organism; K95.09 Other complications of gastric band procedure; E66.9 Obesity, unspecified; E78.5 Hyperlipidemia, unspecified; M19.90 Unspecified osteoarthritis, unspecified site; Z79.02 Long term (current) use of antithrombotics/antiplatelets; Z79.82 Long term (current) use of aspirin; Z79.84 Long term (current) use of oral hypoglycemic drugs; I25.10 Atherosclerotic heart disease of native coronary artery without angina pectoris; I10 Essential (primary) hypertension; Z11.52 Encounter for screening for COVID-19; E87.5 Hyperkalemia; Z79.899 Other long term (current) drug therapy; Z79.4 Long term (current) use of insulin; Z86.73 Personal history of transient ischemic attack (TIA), and cerebral infarction without residual deficits; Z88.2 Allergy status to sulfonamides; Y84.8 Other medical procedures as the cause of abnormal reaction of the patient, or of later complication, without mention of misadventure at the time of the procedure; Z98.51 Tubal ligation status
CPT/HCPCS: 36415; 71046; 74176; 80048; 80053; 81003; 83036; 83605; 83735; 84145; 85025; 86140; 87040; 87636; 93005; 96361; 96365; 99284

== ENCOUNTER 2023-11-23 10:16 | Day surgery (SDC) | payer MEDICARE ==
[~2023-11-23 10:16] MED LIST changes: +EMPTY BAG 1 BAG with SODIUM CHLORIDE 0.9% 1,000 ML IV ONE; -HEPARIN SODIUM,PORCINE (1 ML) 2,500 UNIT in SODIUM CHLORIDE 0.9% 250 ML IRRIGATION PRN; -HEPARIN SODIUM,PORCINE 10,000 UNIT in SODIUM CHLORIDE 0.9% 1,000 ML IRRIGATION PRN; +SODIUM CHLORIDE 0.9% 1,000 ML in EMPTY BAG 1 BAG IV SCH
[2023-11-23] MEDS: SODIUM CHLORIDE 0.9% 1,000 ML IV ONE (10:32)
[2023-11-23 10:53] LABS: Glucose,Whole Blood 204 mg/dL (70-110)
[2023-11-23 11:12] LABS: African American GFR (CKD) 31 (>60 ml/min/1.73 sqM); Anion Gap 10 mmol/L; Blood Urea Nitrogen 32 mg/dL (7-17); Calcium 9.4 mg/dL (8.4-10.2); Carbon Dioxide 18 mmol/L (22-30); Chloride 111 mmol/L (98-107); Glucose 205 mg/dL (74-99); Non-African American GFR(CKD) 27 (>60 ml/min/1.73 sqM); Potassium 5.5 mmol/L (3.5-5.1); Sodium 139 mmol/L (137-145)
[2023-11-23] MEDS: INSULIN ASPART (NovoLOG) 100 UNIT/ML VIAL SQ ONE (11:12)
[2023-11-23 11:37] VITALS: RESP 16; TEMP 97.6
[2023-11-23] MEDS: CLOPIDOGREL 75 MG TAB PO ONE (12:23)
[2023-11-23] MEDS: LIDOCAINE 1% INJ 10MG/ML (20 ML MDV) SQ ONE (12:23)
[2023-11-23] MEDS: VERAPAMIL 2.5 MG/ML 4 ML VIAL INTRAARTER ONE (12:25)
[2023-11-23] MEDS: VERAPAMIL SYRINGE (5 MG/10 ML) INTRAARTER ONE (12:26)
[2023-11-23] MEDS: HEPARIN SODIUM 1,000 UN/ML (10ML VL) IVP ONE ×4 (12:26→13:00)
[2023-11-23] MEDS: fentaNYL (PF) 50 MCG/1 ML VIAL IVP ONE (12:28)
[2023-11-23] MEDS: MIDAZOLAM 2 MG/2 ML VIAL IVP ONE (12:28)
[2023-11-23] MEDS: IOPAMIDOL-370 100ML BTL INTRATHECA ONE (13:02)
--- NOTE | 2023-11-23 13:10 | P.PRCINT ---
Percutaneous Coronary Int. - Percutaneous Coronary Intervention Percutaneous Coronary Intervention: PROCEDURES PERFORMED: Left heart catheterization, left coronary angiography, IVUS LAD, PCI proximal to mid LAD with a 3.25 x 33mm Xience CLAUDIA, post dilated with a 3.5mm NC balloon INDICATION: Abnormal stress test, chest pain CONSENT:I have discussed the risks, benefits and alternative therapies for the above-mentioned procedure and for both sedation/analgesia as well as necessary blood product administration, if indicated, as they pertain to this patient. The patient has indicated understanding and acceptance of the risks and procedures discussed. PROCEDURE: After the risks, benefits and alternatives of the above mentioned procedure explained in detail with the patient, informed consent was obtained. Patient was taken to the catheterization lab and prepped and draped in usual fashion. Ultrasound guidance was used to assess for arterial access. 1% lidocaine was used to anesthetize the right radial artery. A 6-Jamaican sheath was placed in the right radial artery using modified Seldinger technique and ultrasound guidance. A 5-Jamaican FR4 catheter was inserted into the left ventricle and pressure measurements were obtained. The decision was made to perform PCI of the LAD. A 6 Jamaican CLS 3.5 guide was used to engage the left main. Heparin was given. A 0.014 BMW wire was advanced into the distal LAD. Intravascular ultrasound showed reference vessel approximately 3.25 to 3.5 mm with a long area of calcification. Predilation was performed with a 3.0 x 15 mm noncompliant balloon. Repeat intravascular ultrasound showed good expansion with no dissection. Contrast was spared with intravascular ultrasound performed. Next a 3.25 x 33 mm Xience CLAUDIA was placed from the proximal to mid LAD. The stent was postdilated with a 3.5 noncompliant balloon. Final images were performed. Preintervention there was 70% stenosis with RAMAN-3 flow and postintervention there was less than 10% stenosis with RAMAN-3 flow. The right radial sheath was removed and a TR band was placed with hemostasis achieved. The patient tolerated the procedure well. Patient was transported back to the post catheterization holding area in stable condition. Conscious Sedation: Patient was monitored under the direct supervision of myself for conscious sedation using Versed and fentanyl for a total duration of 38 minutes HEMODYNAMICS: Aortic: 148/65 LV: 151/8, LVEDP 18 SELECTIVE CORONARY ARTERIOGRAPHY: LEFT MAIN: The left main is a large caliber vessel which bifurcates into the LAD and circumflex. There is no significant stenosis. LEFT ANTERIOR DESCENDING CORONARY ARTERY: LAD is a large caliber vessel which wraps around to the apex. There is a long 70% stenosis of the proximal to mid LAD. Otherwise there are mild luminal irregularities. LEFT CIRCUMFLEX CORONARY ARTERY: Left circumflex is a moderate caliber vessel with mild luminal irregularities. RIGHT CORONARY ARTERY: The right coronary artery was not imaged, see separate diagnostic report. FINAL IMPRESSION: 1. CAD as described above including 70% LAD stenosis 2. S/p PCI proximal to mid LAD with a 3.25 x 33mm Xience CLAUDIA, post dilated with a 3.5mm NC balloon 3. Mildly elevated left sided filling pressures PLAN: 1. Aggressive risk factor modification per most recent ACC/AHA guidelines. 2. Continue dual antiplatelets with aspirin and Plavix for 6 months.
[2023-11-23] MEDS ORDERED: FLUTICASONE 50MCG/SPRAY NASAL 16GM EA NOSTRIL PRN (13:18)
[2023-11-23] MEDS ORDERED: OFLOXACIN 0.3% OPHTH DROPS 5 ML BOTTLE BOTH EARS PRN (13:18)
[2023-11-23] MEDS ORDERED: ACETAMINOPHEN TAB 325 MG TAB PO PRN (13:18)
[2023-11-23] MEDS ORDERED: MAG HYDROX/AL HYDROX/SIMETH 30 ML CUP PO PRN (13:19)
[2023-11-23] MEDS ORDERED: ZOLPIDEM 5 MG TAB PO PRN (13:19)
[2023-11-23] MEDS ORDERED: RX INFO: IV CONTRAST WAS GIVEN 1 EACH MISC MISCELLANE PRN (13:19)
[2023-11-23] MEDS ORDERED: ATROPINE SULFATE 0.1 MG/ML 10ML SYRINGE IV PRN (13:19)
[2023-11-23 18:02] VITALS: BP 138/67; PULSE 67
[2023-11-23] MEDS ORDERED: MONTELUKAST 10 MG TAB PO SCH (21:00)
[2023-11-23] MEDS ORDERED: RAMIPRIL 10 MG PO SCH (21:00)
[2023-11-23] MEDS ORDERED: INSULIN DEGLUDEC 100 UNIT/ML SQ SCH (21:00)
[2023-11-23] MEDS ORDERED: METOPROLOL TARTRATE 25 MG TAB PO SCH (21:00)
[2023-11-23] MEDS ORDERED: PREGABALIN 75 MG CAP PO SCH (21:00)
[2023-11-24] MEDS ORDERED: ATORVASTATIN 40 MG TAB PO SCH (09:00)
[2023-11-24] MEDS ORDERED: DAPAGLIFLOZIN PROPANEDIOL 5 MG TABLET PO SCH (09:00)
[2023-11-24] MEDS ORDERED: LORATADINE 10 MG TAB PO SCH (09:00)
[2023-11-24] MEDS ORDERED: CLOPIDOGREL 75 MG TAB PO SCH (09:00)
[2023-11-24] MEDS ORDERED: ASPIRIN 81 MG PO SCH (09:00)
[2023-11-24] MEDS ORDERED: amLODIPine 5 MG TAB PO SCH (09:00)
== END 2023-11-23 17:07 | disposition home or self-care (01) ==
LOC: CATHCVL 10:16
PROVIDERS: ATTEND Internal Medicine
DX: I25.10 Atherosclerotic heart disease of native coronary artery without angina pectoris (principal); I10 Essential (primary) hypertension; E78.5 Hyperlipidemia, unspecified; E11.9 Type 2 diabetes mellitus without complications; F17.210 Nicotine dependence, cigarettes, uncomplicated; Z79.84 Long term (current) use of oral hypoglycemic drugs; Z79.899 Other long term (current) drug therapy
CPT/HCPCS: 92978; 93458; 76937; 80048; C9600; C1769 ×2; C1887; C1894; C1753; C1874; C1725 ×2; J2250; J2001; J1644; Q9967; J3010

== ENCOUNTER → 2024-07-27 | Outpatient (CLI) | payer MEDICARE ==
[2024-07-27 15:18] LABS: HCT 35.7 % (37.2-46.3); HGB 11.5 g/dL (12.0-15.0); MCH 29.6 pg (27.0-32.0); MCHC 32.2 g/dL (32.0-37.0); Mean Platelet Volume 12.3 FL (9.5-12.2); NRBC Per 100 WBC 0 X 10*3/uL (0.00-0.01); Platelet Count 251 X 10*3/uL (140-440); RBC 3.88 X 10*6/uL (4.10-5.20); RDW 12.3 % (11.5-14.5); WBC 7.04 X 10*3/uL (4.50-10.00)
[2024-07-27 15:47] LABS: % Iron Saturation 14.29 (12.00-45.00); ALT 20 U/L (8-44); AST 15 U/L (13-35); Albumin 4.3 g/dL (3.8-4.9); Albumin/Globulin Ratio 1.59 Ratio (1.60-3.17); Alkaline Phosphatase 108 U/L (41-126); BUN/Creat Ratio 22.05 Ratio (12.00-20.00); Blood Urea Nitrogen 44.1 mg/dL (9.0-27.0); Calcium 9.2 mg/dL (8.7-10.3); Carbon Dioxide 20.2 mmol/L (21.6-31.8); Chloride 106 mmol/L (96-109); Ferritin 59.9 ng/mL (10.0-291.0); Globulin 2.7 g/dL (1.6-3.3); Glucose 208 mg/dL (70-110); Iron 60 UG/DL (50-170); Magnesium 2.3 mg/dL (1.5-2.4); Phosphorus 3.9 mg/dL (2.4-5.1); Potassium 5.4 mmol/L (3.5-5.5); Sodium 138 mmol/L (135-145); Total Bilirubin 0.2 mg/dL (0.3-1.2); Total Iron Binding Capacity 420 UG/DL (228-460); Uric Acid 5.3 mg/dL (2.9-7.7)
[2024-07-27 16:28] LABS: Appearance,Urine Clear (Clear); Bilirubin,Urine Negative (Negative); Blood,Urine Negative (Negative); Color,Urine Yellow (Yellow); Ketones,Urine Negative (Negative); Nitrite,Urine Negative (Negative); Specific Gravity,Urine 1.017 (1.001-1.030); Urobilinogen,Urine 0.2 E.U./DL
[2024-07-27 17:01] LABS: Bacteria,Urine None Seen (None Seen)
[2024-07-27 19:09] LABS: C-Peptide 5.94 ng/mL (0.81-3.85)
[2024-07-27 20:17] LABS: Urine Creatinine 60.5 mg/dL (28.0-217.0)
== END | disposition home or self-care (01) ==
LOC: LABWHC1 09:04
PROVIDERS: ATTEND Internal Medicine Nephrology
DX: E11.9 Type 2 diabetes mellitus without complications (principal); N18.4 Chronic kidney disease, stage 4 (severe)
CPT/HCPCS: 36415; 80053; 81001; 82043; 82306; 82570; 82728; 83525; 83540; 83550; 83735; 83970; 84100; 84550; 84681; 85027